=== PATIENT | female | born 1970 | race Caucasian/White ===

== ENCOUNTER 2022-06-26 12:24 | Outpatient (REF) | payer MEDICAID, SELFPAY ==
--- NOTE | ~2022-06-26 | XR_ITS ---
EXAMINATION: XR SHOULDER, RIGHT CLINICAL INFORMATION: Right shoulder pain COMPARISON: None TECHNIQUE: AP external rotation, Grashey, scapular Y, and axillary views of the right shoulder. FINDINGS: The bones and soft tissues are normal. No fracture. Glenohumeral and acromioclavicular alignment is anatomic with normal joint space. No abnormal soft tissue calcifications. XR/XR shoulder RT min 2V IMPRESSION: Unremarkable right shoulder.
== END 2022-06-26 12:25 | disposition home or self-care (01) ==
LOC: HO.XRAY 12:24
PROVIDERS: PCP Registered Nurse; Visit Provider Registered Nurse
DX: M25.511 Pain in right shoulder (principal)
CPT/HCPCS: 73030

== ENCOUNTER 2022-07-02 12:42 | Emergency (ER) | payer MEDICAID, SELFPAY ==
[2022-07-02 13:05] VITALS: BP 141/95; PULSE 79; RESP 16; TEMP 37; O2SAT 98; BMI 27.4
[2022-07-02 13:37] LABS: MANUAL DIFF FLAG NO
[2022-07-02 13:38] LABS: Basophils Percent Auto 0.4 % (0-2); Eosinophils Absolute Auto 0.2 X10*3/uL (0.0-0.4); Eosinophils Percent Auto 2.1 % (0-4); Hematocrit 37.5 % (37.0-47.0); Hemoglobin 12.3 g/dl (12.0-16.0); Imm Gran Abs Auto 0.02 X10*3/uL (0.00-0.03); Imm Gran Pct Auto 0.2 % (0.0-0.4); Lymphocytes Absolute Auto 2.7 X10*3/uL (1.2-4.9); Lymphocytes Percent Auto 32.4 % (20-40); Mean Corpuscular HGB Conc 32.8 g/dl (31.0-35.0); Mean Corpuscular Hemoglobin 28.7 pg (27.0-33.0); Mean Corpuscular Volume 87.6 fL (80.0-98.0); Mean Platelet Volume 11.4 fL (9.4-12.3); Monocytes Absolute Auto 0.5 X10*3/uL (0.1-1.2); Monocytes Percent Auto 6.1 % (2-11); Neutrophils Absolute Auto 4.8 x10*3/uL (2.0-8.3); Neutrophils Percent Auto 58.8 % (45-73); Platelet Count 270 X10*3/uL (160-400); Red Blood Count 4.28 X10*6/uL (4.20-5.50); Red Cell Distribution Width 13.3 % (11.0-16.0); White Blood Count 8.2 X10*3/uL (4.8-10.8)
[2022-07-02 13:51] LABS: Anion Gap 17 (12-20); Blood Urea Nitrogen 11 mg/dL (9-16); Calcium 9.9 mg/dL (8.4-10.2); Carbon Dioxide 25 mmol/L (22-29); Chloride 102 mmol/L (96-108); Creatinine Clr Calc Pharmacy 94.1; Estimated Glomerular Filt Rate > 60; Glucose Random 97 mg/dL (60-115); Potassium 4.5 mmol/L (3.3-5.1); Sodium 139 mmol/L (135-145)
--- NOTE | 2022-07-02 21:51 | PC.NURSE ---
Pt. reports that she has had intermittent very heavy vaginal bleeding for the last few months, with large blood clots. Was seen in [facility]'s ED appx. three months ago, but the heavy bleeding has returned.
[2022-07-02 21:53] VITALS: BP 140/82; PULSE 90; RESP 20; TEMP 36.8; O2SAT 99
--- NOTE | 2022-07-02 21:59 | PC.NURSE ---
Pt. on pvc monitor at this time. Awaiting MD currently.
--- NOTE | 2022-07-02 22:14 | ED_ITS ---
HPI - Female Genitourinary General Chief complaint: Abdominal Pain Stated complaint: vaginal bleeding Time Seen by Provider: 07/02/22 21:45 History of Present Illness HPI Narrative: Patient is a 51-year-old female presented today with having vaginal bleeding. Patient had a history of vaginal bleeding in the past. Was seen in [facility] few months ago. It subsequently subsided. Patient did make an appointment to see OBGYN. She has an appointment to see a doctor tomorrow. Patient complaining of increasing bleeding tonight. Has been having bleeding maybe 3-4 pads per day since Saturday. Associated with this a small amount of lower abdominal cramping. No nausea no vomiting. No change in bowel movements. No bloody stool. Patient had tubal ligation does not think she is . She has been seen by a nurse practitioner in the past for the same. Patient denies any bleeding disorder. Is not on any blood thinners. No fever no chills no coughing or congestion or upper respiratory symptoms. Related Data Allergies Allergy/AdvReac Type Severity Reaction Status Date / Time penicillin V Allergy Unknown Unverified 06/22/19 00:00 Penicillins Allergy Unknown RASH Unverified 06/09/20 16:02 ITCHY/SWELLING Review of Systems Review of Systems: Positive lower abdominal pain cramping Positive vaginal bleeding approximately 3-4 pads per day. All system reviewed otherwise negative COUNT INCLUDES THE [facility] Past Medical History Attestation statement: The following information was validated with the patient. Social History Social History Household Members: Significant Other Alcohol intake: current Alcohol intake frequency: holidays/special occasions only Patient Tobacco Use Status: Never used Tobacco Use of substances other than those prescribed or required for medical reasons: No Advance Directives: No Advance Directives Information Provided: Yes Physical Exam Vital Signs: Vital Signs: Last Vital Signs Temp 98.3 F 07/02/22 21:53 Pulse 96 07/02/22 22:33 Resp 20 07/02/22 21:53 BP 144/97 H 07/02/22 22:33 Pulse Ox 99 07/02/22 21:53 O2 Del Method 07/02/22 21:53 BMI result Body Mass Index 27.4 Appearance: Alert. Oriented X3. No acute distress. Eyes: Pupils equal, round and reactive to light. ENT: Pharynx normal. Neck: Normal inspection. Neck supple. No lymph nodes noted. No crepitus CVS: Normal heart rate and rhythm. Pulses normal. Normal S1 and S2 Respiratory: No respiratory distress. Breath sounds normal. No Wheezing. No rales Abdomen: Soft and nontender. No rigidity. No distention. good BS x4 Pelvic exam patient refused pelvic exam at this time. Skin: Skin warm and dry. Normal skin color. Normal skin turgor. Extremities: No lower extremity edema. Neurovascular intact to all extremities. No Lacerations. No Rash Neuro: Oriented X 3. No motor deficit. No sensory deficit. Moving all ex termities. No slurred speech MDM - Female Genitourinary MDM Narrative Medical decision making narrative: Patient hemoglobin is actually stable. Has an appointment to see OBGYN tomorrow. Did not want an manager acquisition exam. Patient will get an orthostatic check. Will check status. Patient will be discharged home. Extent plane to patient there is no acute medication that can be given until patient is being seen by OBGYN given that her hemoglobin is stable. She is well appearing. Explained to patient risk of cancer exists. Will need biopsy. Patient states understanding. Lab Data Attestation: I reviewed the patient's lab results. Result diagrams: 07/02/22 13:32 07/02/22 13:32 Labs: Lab Results 07/02/22 07/02/22 Range/Units 13:32 13:32 WBC 8.2 (4.8-10.8) X10*3/uL RBC 4.28 (4.20-5.50) X10*6/uL Hgb 12.3 (12.0-16.0) g/dl Hct 37.5 (37.0-47.0) % MCV 87.6 (80.0-98.0) fL MCH 28.7 (27.0-33.0) pg MCHC 32.8 (31.0-35.0) g/dl RDW 13.3 (11.0-16.0) % Plt Count 270 (160-400) X10*3/uL MPV 11.4 (9.4-12.3) fL Immature Gran % (Auto) 0.2 (0.0-0.4) % Neut % (Auto) 58.8 (45-73) % Lymph % (Auto) 32.4 (20-40) % [place] % (Auto) 6.1 (2-11) % Eos % (Auto) 2.1 (0-4) % Baso % (Auto) 0.4 (0-2) % Lymph # (Auto) 2.7 (1.2-4.9) X10*3/uL [place] # (Auto) 0.5 (0.1-1.2) X10*3/uL Eos # (Auto) 0.2 (0.0-0.4) X10*3/uL Baso # (Auto) 0.0 (0.0-0.2) X10*3/uL Abs Immat Gran (auto) 0.02 (0.00-0.03) X10*3/uL Absolute Neuts (auto) 4.8 (2.0-8.3) x10*3/uL Absolute Nucleated RBC 0.000 (0.0-0.012) X10*3/uL Nucleated RBC % (auto) 0.0 (0.0-0.2) /100WBC Sodium 139 (135-145) mmol/L Potassium 4.5 (3.3-5.1) mmol/L Chloride 102 (96-108) mmol/L Carbon Dioxide 25 (22-29) mmol/L Anion Gap 17 (12-20) BUN 11 (9-16) mg/dL Creatinine 0.70 (0.5-1.4) mg/dL Estim Creat Clear Calc 94.1 Estimated GFR > 60 Random Glucose 97 (60-115) mg/dL Calcium 9.9 (8.4-10.2) mg/dL Beta HCG, Quant < 2 mIU/mL Discharge Plan Discharge Clinical Impression: Abnormal vaginal bleeding Patient Disposition: Home, Self-Care Instructions: Dysfunctional Uterine Bleeding (ED) Additional Instructions: Small risk of cancer exists. Please closely follow-up with OBGYN on an outpatient basis. Uncontrolled bleeding return. Referrals: Aidan Jules MD [Physician] - 07/03/22
[2022-07-02 22:32] VITALS: BP 130/78; BP 142/93; PULSE 81
[2022-07-02 22:33] VITALS: BP 144/97; PULSE 96
[2022-07-02 22:34] LABS: HCG Quantitative < 2 mIU/mL
--- NOTE | 2022-07-02 22:36 | PC.NURSE ---
Orthostatic VS completed. One-time Tylenol 975mg administered.
[2022-07-02] MEDS: Acetaminophen 325 MG TABLET 975 MG PO (22:40)
[2022-07-02 22:53] LABS: Appearance Urine Turbid; Color Urine RED; Glucose Urine UA Negative (Negative); Leukocyte Esterase Urine Negative (Negative); Nitrite Urine Negative (Negative); PH 5.5 (5.0-9.0); Specific Gravity - Urine >= 1.030 (1.005-1.025); UMIC TRIGGER UACC YES; Urine Blood Large (3+) (Negative); Urine Ketones Negative (Negative); Urine Protein 100 (2+) mg/dL (Neg-Trace)
[2022-07-02 22:56] LABS: RBC Urine >20 /HPF (0-2); WBC Urine 0-5 /HPF (0-5)
[2022-07-02 22:57] LABS: Bacteria Urine 2+ (None Seen); Hyaline Casts Urine 0-2 /LPF (0-2); Squamous Epithelial Cell Urine 0-2 /HPF (0-2)
== END 2022-07-02 23:29 | disposition home or self-care (01) ==
PROVIDERS: Emergency Medicine; Emergency Provider Emergency Medicine Emergency Medical Services; PCP Registered Nurse
DX: N93.9 Abnormal uterine and vaginal bleeding, unspecified (principal); Z98.51 Tubal ligation status
CPT/HCPCS: 36415; 80048; 81001; 84702; 85025; 99283; 99284

== ENCOUNTER → 2022-07-03 10:49 | Outpatient (BNVA) | payer MEDICAID, SELFPAY | PROVIDERS: PCP Nurse Practitioner Family; Visit Provider Nurse Practitioner Family | DX: Z01.818 Encounter for other preprocedural examination (principal); N32.89 Other specified disorders of bladder | CPT/HCPCS: 99202 ==

== ENCOUNTER 2022-07-12 13:49 | Outpatient (REF) | payer MEDICAID, SELFPAY ==
[2022-07-12 20:09] LABS: CT PCR NOT DETECTED (Not Detect.); NG PCR NOT DETECTED (Not Detect.)
[2022-07-13 11:11] LABS: BV Int Neg Control Negative (Negative); BV Int Pos Control Positive (Positive)
[2022-07-17 20:41] LABS: HPV mRNA E6/E7 rflx Not Detected (Not Detected)
== END 2022-07-12 13:50 | disposition home or self-care (01) ==
LOC: HO.LNP 13:49
PROVIDERS: Visit Provider Advanced Practice Midwife
DX: Z01.419 Encounter for gynecological examination (general) (routine) without abnormal findings (principal); Z11.51 Encounter for screening for human papillomavirus (HPV); N95.0 Postmenopausal bleeding
CPT/HCPCS: 87480; 87491; 87510; 87591; 87624; 87660; 88142; 99202

== ENCOUNTER 2022-08-20 12:20 | Emergency (ER) | payer MEDICAID, SELFPAY ==
--- NOTE | ~2022-08-20 | XR_ITS ---
EXAMINATION: XR CHEST CLINICAL INFORMATION: Chest pain COMPARISON: Previous chest x-ray June 2019 TECHNIQUE: 2 views of the chest were obtained. FINDINGS: The cardiac and mediastinal contours are normal. The lungs are clear. No pleural effusion or pneumothorax. Normal bony structures. XR/XR chest 2V IMPRESSION: No evidence for acute disease in the chest.
[2022-08-20 12:26] VITALS: BP 162/103; PULSE 85; RESP 18; TEMP 36.3; O2SAT 99; BMI 32.1
--- NOTE | 2022-08-20 12:26 | ECG_ITS ---
Test Reason : CP/NUMBNESS Blood Pressure : / mmHG Vent. Rate : 092 BPM Atrial Rate : 092 BPM P-R Int : 134 ms QRS Dur : 076 ms QT Int : 356 ms P-R-T Axes : 063 057 033 degrees QTc Int : 440 ms Normal sinus rhythm Low voltage QRS RSR' or QR pattern in V1 suggests right ventricular conduction delay Borderline ECG When compared with ECG of 24-MAY-2018 00:51, No significant change was found Referred By: Krystal Dang Electronically Signed By:SHAN MARIE MD
--- NOTE | 2022-08-20 12:28 | ED_ITS ---
HPI - Chest Pain General Chief Complaint: Chest Pain Stated Complaint: Chest pain Related Data Home Medications Medication Instructions Recorded Confirmed amlodipine 5 mg tablet 5 mg PO DAILY 07/03/22 blood pressure test kit-large #1 ea 07/03/22 ferrous sulfate 325 mg (65 mg 325 mg PO TID 07/03/22 iron) tablet (FeroSul) fluticasone propionate 110 2 puff inhalation BID 07/03/22 mcg/actuation HFA aerosol inhaler (Flovent HFA) fluticasone propionate 50 1 - 2 spray intranasal DAILY PRN 07/03/22 mcg/actuation nasal spray,suspension ibuprofen 200 mg tablet 200 - 400 mg PO Q6H PRN headache 07/03/22 lurasidone 80 mg tablet (Latuda) 80 mg PO DAILY 07/03/22 quetiapine 400 mg tablet 400 mg PO BEDTIME 07/03/22 quetiapine 50 mg tablet 50 mg PO BID 07/03/22 vortioxetine 20 mg tablet 20 mg PO DAILY 07/03/22 (Trintellix) Previous Rx's Medication Instructions Recorded bisacodyl 5 mg tablet,delayed 10 mg PO ONCE 1 day #2 tabs 07/03/22 release (Dulcolax (bisacodyl)) polyethylene glycol 3350 17 238 g PO ONCE #238 grams 07/03/22 gram/dose oral powder (Miralax) Allergies Allergy/AdvReac Type Severity Reaction Status Date / Time penicillin V Allergy Unknown Unknown Verified 07/12/22 13:25 Penicillins Allergy Unknown RASH Verified 07/12/22 13:25 ITCHY/SWELLING PMFSH Past Medical History Medical History (Updated 08/23/22 @ 17:54 by REKHA Key) Allergic rhinitis Chronic dyspnea Depression H. pylori infection HTN (hypertension) Iron deficiency anemia Migraine Pain syndrome, chronic Surgical History Hx of tubal ligation Social History Social History Household Members: Significant Other Alcohol intake: current Alcohol intake frequency: holidays/special occasions only Patient Tobacco Use Status: Never used Tobacco Advance Directives: No Advance Directives Information Provided: Yes Physical Exam Vital Signs: Vital Signs: Last Vital Signs Temp 97.4 F 08/20/22 12:26 Pulse 85 11/28/22 12:26 Resp 18 08/20/22 12:26 BP 162/103 H 08/20/22 12:26 Pulse Ox 99 08/20/22 12:26 O2 Del Method 08/20/22 12:26 BMI result Body Mass Index 32.1 Course Course Course Narrative: 51 yo female with history of asthma who presents to the ER wtih 07/02 right sided upper back pain that started last night along with right arm numbness and pain. She woke up today with the pain radiating to her central chest, constant and 10/. Supposed to have MRI for evaluation of back pain with normal XR's. Soft tissue tenderness over the medial scapula. Will get EKG, labs, CXR. Plan per main provider in the ED. MDM - Chest Pain Lab Data Result diagrams: 08/20/22 13:10 08/20/22 13:10 Labs: Lab Results 08/20/22 08/20/22 08/20/22 Range/Units 13:10 13:10 13:10 WBC 8.1 (4.8-10.8) X10*3/uL RBC 4.09 L (4.20-5.50) X10*6/uL Hgb 11.7 L (12.0-16.0) g/dl Hct 36.4 L (37.0-47.0) % MCV 89.0 (80.0-98.0) fL MCH 28.6 (27.0-33.0) pg MCHC 32.1 (31.0-35.0) g/dl RDW 13.4 (11.0-16.0) % Plt Count 311 (160-400) X10*3/uL MPV 11.2 (9.4-12.3) fL Immature Gran % (Auto) 0.2 (0.0-0.4) % Neut % (Auto) 60.3 (45-73) % Lymph % (Auto) 30.3 (20-40) % [place] % (Auto) 6.6 (2-11) % Eos % (Auto) 2.1 (0-4) % Baso % (Auto) 0.5 (0-2) % Lymph # (Auto) 2.5 (1.2-4.9) X10*3/uL [place] # (Auto) 0.5 (0.1-1.2) X10*3/uL Eos # (Auto) 0.2 (0.0-0.4) X10*3/uL Baso # (Auto) 0.0 (0.0-0.2) X10*3/uL Abs Immat Gran (auto) 0.02 (0.00-0.03) X10*3/uL Absolute Neuts (auto) 4.9 (2.0-8.3) x10*3/uL Absolute Nucleated RBC 0.000 (0.0-0.012) X10*3/uL Nucleated RBC % (auto) 0.0 (0.0-0.2) /100WBC Sodium 138 (135-145) mmol/L Potassium 4.5 (3.3-5.1) mmol/L Chloride 104 (96-108) mmol/L Carbon Dioxide 25 (22-29) mmol/L Anion Gap 14 (12-20) BUN 15 (9-16) mg/dL Creatinine 0.69 (0.5-1.4) mg/dL Estim Creat Clear Calc 88.6 Estimated GFR > 60 Random Glucose 93 (60-115) mg/dL Calcium 9.8 (8.4-10.2) mg/dL Magnesium 1.9 (1.6-2.6) mg/dL Total Bilirubin 0.6 (0.0-1.0) mg/dL Direct Bilirubin 0.2 (0.0-0.5) mg/dL AST 29 (5-31) U/L ALT 30 (0-31) U/L Alkaline Phosphatase 54 (39-117) U/L Troponin I High Sens < 3.5 (<3.5-17.0) ng/L Total Protein 7.8 (6.5-8.0) g/dL Albumin 4.5 (3.5-5.0) g/dL Discharge Plan Discharge Clinical Impression: Back pain Patient Disposition: Elopement Prescriptions: No Action quetiapine 400 mg tablet 400 mg PO BEDTIME quetiapine 50 mg tablet 50 mg PO BID amlodipine 5 mg tablet 5 mg PO DAILY Latuda 80 mg tablet 80 mg PO DAILY Trintellix 20 mg tablet 20 mg PO DAILY ibuprofen 200 mg tablet 200 - 400 mg PO Q6H PRN (Reason: headache) ferrous sulfate [FeroSul] 325 mg (65 mg iron) tablet 325 mg PO TID fluticasone propionate 50 mcg/actuation spray,suspension 1 - 2 spray intranasal DAILY PRN fluticasone propionate [Flovent HFA] 110 mcg/actuation HFA aerosol inhaler 2 puff inhalation BID (DME) blood pressure test kit-large Kit See Rx Instructions .ROUTE DAILY Qty: 1 Rx Instructions: As directed bisacodyl [Dulcolax (bisacodyl)] 5 mg tablet,delayed release (DR/EC) 10 mg PO ONCE 1 Days Qty: 2 0RF Rx Instructions: take 2 tabs at noon the day before your colonoscopy polyethylene glycol 3350 [Miralax] 17 gram/dose powder 238 g PO ONCE Qty: 238 0RF Rx Instructions: As directed by gastroenterology department at [facility] Interventions: ED Discharge Assessment Last Done: 08/20/22 22:21 Discharge Date/Time: 08/20/22 22:21
[2022-08-20 13:15] LABS: MANUAL DIFF FLAG NO
[2022-08-20 13:16] LABS: Basophils Percent Auto 0.5 % (0-2); Eosinophils Absolute Auto 0.2 X10*3/uL (0.0-0.4); Eosinophils Percent Auto 2.1 % (0-4); Hematocrit 36.4 % (37.0-47.0); Hemoglobin 11.7 g/dl (12.0-16.0); Imm Gran Abs Auto 0.02 X10*3/uL (0.00-0.03); Imm Gran Pct Auto 0.2 % (0.0-0.4); Lymphocytes Absolute Auto 2.5 X10*3/uL (1.2-4.9); Lymphocytes Percent Auto 30.3 % (20-40); Mean Corpuscular HGB Conc 32.1 g/dl (31.0-35.0); Mean Corpuscular Hemoglobin 28.6 pg (27.0-33.0); Mean Platelet Volume 11.2 fL (9.4-12.3); Monocytes Absolute Auto 0.5 X10*3/uL (0.1-1.2); Monocytes Percent Auto 6.6 % (2-11); Neutrophils Absolute Auto 4.9 x10*3/uL (2.0-8.3); Neutrophils Percent Auto 60.3 % (45-73); Platelet Count 311 X10*3/uL (160-400); Red Blood Count 4.09 X10*6/uL (4.20-5.50); Red Cell Distribution Width 13.4 % (11.0-16.0); White Blood Count 8.1 X10*3/uL (4.8-10.8)
[2022-08-20 13:35] LABS: Alanine Aminotransferase 30 U/L (0-31); Albumin Level 4.5 g/dL (3.5-5.0); Alkaline Phosphatase 54 U/L (39-117); Anion Gap 14 (12-20); Aspartate Amino Transferase 29 U/L (5-31); Bilirubin Direct 0.2 mg/dL (0.0-0.5); Bilirubin Total 0.6 mg/dL (0.0-1.0); Blood Urea Nitrogen 15 mg/dL (9-16); Calcium 9.8 mg/dL (8.4-10.2); Carbon Dioxide 25 mmol/L (22-29); Chloride 104 mmol/L (96-108); Creatinine Clr Calc Pharmacy 88.6; Estimated Glomerular Filt Rate > 60; Glucose Random 93 mg/dL (60-115); Magnesium 1.9 mg/dL (1.6-2.6); Potassium 4.5 mmol/L (3.3-5.1); Sodium 138 mmol/L (135-145); Total Protein 7.8 g/dL (6.5-8.0)
[2022-08-20 13:41] LABS: Troponin-I High Sensitivity < 3.5 ng/L (<3.5-17.0)
== END 2022-08-20 22:21 | disposition left against medical advice (07) ==
PROVIDERS: Physician Assistant; Emergency Provider Emergency Medicine; PCP Emergency Medicine
DX: M54.9 Dorsalgia, unspecified (principal); I10 Essential (primary) hypertension; G89.4 Chronic pain syndrome; Z79.899 Other long term (current) drug therapy
CPT/HCPCS: 36415; 71046; 80048; 80076; 83735; 84484; 85025; 93005; 99282; 99283

== ENCOUNTER 2022-08-24 16:33 | Outpatient (REF) | payer MEDICAID, SELFPAY ==
--- NOTE | ~2022-08-24 | MR_ITS ---
EXAMINATION: MR SHOULDER WITHOUT CONTRAST, RIGHT CLINICAL INFORMATION: Pain, status post fall COMPARISON: None TECHNIQUE: MRI of the shoulder without contrast was performed on a high-field scanner. FINDINGS: Significant motion artifact degrading images, limiting evaluation. ROTATOR CUFF: Mild to moderate supraspinatus tendinosis. No gross measurable tear or tendon retraction is seen. Infraspinatus, teres minor, subscapularis are intact. No muscle atrophy or fatty infiltration. BICEPS: Question longitudinally propagating linear split tear of the biceps tendon as it courses within the bicipital groove. CORACOACROMIAL ARCH: The undersurface of the acromion is flat with no subacromial spur. No significant AC joint arthritis. LABRUM/CAPSULE: Evaluation limited by significant motion artifact. No definite labral tear is identified. GLENOHUMERAL JOINT/MARROW: No fracture. No suspicious marrow signal changes. MR/MR shoulder RT wo con IMPRESSION: 1. Significant motion artifact degrading images, limiting evaluation. Repeat MRI for reassessment as clinically warranted. 2. Mild to moderate supraspinatus tendinosis. No gross measurable tear or tendon retraction is seen. 3. Question longitudinally propagating linear split tear of the biceps tendon as it courses within the bicipital groove.
== END 2022-08-24 16:34 | disposition home or self-care (01) ==
LOC: HO.MRI 16:33
PROVIDERS: Visit Provider Emergency Medicine
DX: S49.91XA Unspecified injury of right shoulder and upper arm, initial encounter (principal)
CPT/HCPCS: 73221

== ENCOUNTER 2022-08-29 09:51 | Outpatient (REF) | payer MEDICAID, SELFPAY ==
[2022-08-29 12:28] LABS: TSH reflex Free T4 1.24 uIU/mL (0.32-4.0)
== END 2022-08-29 09:52 | disposition home or self-care (01) ==
LOC: HO.LAB 09:51
PROVIDERS: PCP Emergency Medicine; Visit Provider Obstetrics & Gynecology
DX: N95.0 Postmenopausal bleeding (principal); N76.0 Acute vaginitis; B96.89 Other specified bacterial agents as the cause of diseases classified elsewhere
CPT/HCPCS: 36415; 84443; 99212

== ENCOUNTER 2022-08-30 07:12 | Outpatient (REF) | payer MEDICAID, SELFPAY ==
--- NOTE | ~2022-08-30 | MM_ITS ---
EXAMINATION: MM SCREENING DIGITAL BREAST TOMOSYNTHESIS, BILATERAL CLINICAL INFORMATION: Screening. Asymptomatic. The lifetime risk of breast cancer based on the Tyrer-Cuzick Model is 6.3%. COMPARISON: Mammography: March 03, 2009 and studies dating back to January 04, 2015 TECHNIQUE: Digital breast tomosynthesis is performed in both the craniocaudal and mediolateral oblique views along with computer-aided detection (CAD). Synthesized 2D images are generated from the tomosynthesis. FINDINGS: There are scattered areas of fibroglandular density (ACR BI-RADS breast composition Category b). There are no significant masses, abnormal calcifications, or other abnormalities. MM/MM tomosynthesis screening BI IMPRESSION: No significant changes from prior exam. ASSESSMENT: BI-RADS 1: Negative RECOMMENDATION: Routine annual mammography screening. This patient's information was entered into a reminder system with a target due date for their next mammogram.
== END 2022-08-30 07:13 | disposition home or self-care (01) ==
LOC: HO.MAMMO 07:12
PROVIDERS: Visit Provider Obstetrics & Gynecology
DX: Z12.31 Encounter for screening mammogram for malignant neoplasm of breast (principal)
CPT/HCPCS: 77063; 77067

== ENCOUNTER 2022-10-05 06:21 | Day surgery (SDC) | payer MEDICAID, SELFPAY ==
[2022-10-02 14:59] VITALS: BMI 30.2
--- NOTE | 2022-10-04 09:34 | HO.ANESPROP2 ---
Documented by User: Elizabeth Vizcarra NP 10/04/22 09:35 HPI - Anesthesia Eval Consult details Narrative: 51yo F for D&C Hysteroscopy, possible polypectomy/myomectomy PMFSH Active Problems Active Problems: All Active Problems (Updated 08/29/22 @ 10:10 by Aidan Jules MD) Bacterial vaginosis (Acute) Postmenopausal bleeding (Acute) Past Medical History Medical History Allergic rhinitis Asthma Chronic dyspnea Depression H. pylori infection HTN (hypertension) Iron deficiency anemia Migraine Pain syndrome, chronic Surgical History Surgical History Hx of tubal ligation Social History Social History Household Members: Significant Other Alcohol intake: current Alcohol intake frequency: holidays/special occasions only Patient Tobacco Use Status: Never used Tobacco Are you DNR?: No Advance Directives: No Advance Directives Information Provided: Yes Advance Directives on File: No Meds Allergies Allergy/AdvReac Type Severity Reaction Status Date / Time Penicillins Allergy Severe RASH Verified 10/05/22 06:36 ITCHY/SWELLING facial swelling Home Medications Medication Instructions Recorded Confirmed Last Taken Type amlodipine 5 mg tablet 5 mg PO DAILY 07/03/22 10/02/22 Unknown History blood pressure test kit-large #1 ea 07/03/22 Unknown History ferrous sulfate 325 mg (65 mg 325 mg PO TID 07/03/22 09/21/22 History iron) tablet (FeroSul) fluticasone propionate 110 2 puff inhalation BID 07/03/22 10/02/22 Unknown History mcg/actuation HFA aerosol inhaler (Flovent HFA) fluticasone propionate 50 1 - 2 spray intranasal DAILY PRN 07/03/22 Unknown History mcg/actuation nasal spray,suspension ibuprofen 200 mg tablet 200 - 400 mg PO Q6H PRN headache 07/03/22 09/23/22 History lurasidone 80 mg tablet (Latuda) 80 mg PO DAILY 07/03/22 Unknown History quetiapine 400 mg tablet 400 mg PO BEDTIME 07/03/22 Unknown History quetiapine 50 mg tablet 50 mg PO BID 07/03/22 Unknown History vortioxetine 20 mg tablet 20 mg PO DAILY 07/03/22 Unknown History (Trintellix) Exam Exam Date and Time: October 04, 2022 0934 Height,Weight and Vital Signs: Height 5 ft 1 in Weight 72.575 kg Pertinent Lab Results Pertinent Lab Results: Laboratory Tests 08/20/22 08/20/22 13:10 13:10 WBC 8.1 Hgb 11.7 L Hct 36.4 L Plt Count 311 Sodium 138 Potassium 4.5 Chloride 104 Carbon Dioxide 25 BUN 15 Creatinine 0.69 Narrative Narrative: EKG 07/2022 Vent. Rate : 092 BPM ? ? Atrial Rate : 092 BPM ?? P-R Int : 134 ms? QRS Dur : 076 ms ? ? QT Int : 356 ms ? ? ? P-R-T Axes : 063 057 033 degrees ?? QTc Int : 440 ms ? Normal sinus rhythm Low voltage QRS RSR' or QR pattern in V1 suggests right ventricular conduction delay Borderline ECG When compared with ECG of 24-MAY-2018 00:51, No significant change was found Assessment and Plan Assessment Anesthesia Assessment: Chart Reviewed Documented by User: Alicia Baron MD 10/05/22 07:44 PMFSH Past Medical History Medical History Allergic rhinitis Asthma Chronic dyspnea Depression H. pylori infection HTN (hypertension) Iron deficiency anemia Migraine Pain syndrome, chronic Surgical History Surgical History Hx of tubal ligation History of Problems with Anesthesia: No Social History Social History Household Members: Significant Other Alcohol intake: current Alcohol intake frequency: holidays/special occasions only Patient Tobacco Use Status: Never used Tobacco Are you DNR?: No Advance Directives: No Advance Directives Information Provided: Yes Advance Directives on File: No Meds Allergies Allergy/AdvReac Type Severity Reaction Status Date / Time Penicillins Allergy Severe RASH Verified 10/05/22 06:36 ITCHY/SWELLING facial swelling Home Medications Medication Instructions Recorded Confirmed Last Taken Type amlodipine 5 mg tablet 5 mg PO DAILY 07/03/22 10/02/22 Unknown History blood pressure test kit-large #1 ea 07/03/22 Unknown History ferrous sulfate 325 mg (65 mg 325 mg PO TID 07/03/22 09/21/22 History iron) tablet (FeroSul) fluticasone propionate 110 2 puff inhalation BID 07/03/22 10/02/22 Unknown History mcg/actuation HFA aerosol inhaler (Flovent HFA) fluticasone propionate 50 1 - 2 spray intranasal DAILY PRN 07/03/22 Unknown History mcg/actuation nasal spray,suspension ibuprofen 200 mg tablet 200 - 400 mg PO Q6H PRN headache 07/03/22 09/23/22 History lurasidone 80 mg tablet (Latuda) 80 mg PO DAILY 07/03/22 Unknown History quetiapine 400 mg tablet 400 mg PO BEDTIME 07/03/22 Unknown History quetiapine 50 mg tablet 50 mg PO BID 07/03/22 Unknown History vortioxetine 20 mg tablet 20 mg PO DAILY 07/03/22 Unknown History (Trintellix) Exam Airway Mallampati Class: III TM Dist: >3cm Neck ROM: Full Loose/Missing/Broken Teeth: No Heart: RRR Lungs: CTA Assessment and Plan Assessment Anesthesia Assessment: Anesthesia Plan Discussed Final Anesthetic Review History of Problems with Anesthesia: No NPO: Yes ASA Class: II Final Preanesthetic Review: Meds/Allgs Chart Reviewed, Consent Obtained/Reviewed and Anes Risks/Benef Reviewed Patient Risk: Low Procedure Risk: Low Anesthetic Plan Anesthetic Plan: GA Disposition: Standard PACU
[2022-10-05] VITALS (8 sets, daily range): BP systolic 105–144; BP diastolic 56–98; PULSE 86–99; RESP 14–16; TEMP 36.4–37.2; O2SAT 95–100
[2022-10-05] MEDS: Lactated Ringers 1,000 ML 100 ML IVCONT (06:52)
--- NOTE | 2022-10-05 07:40 | MHC.SHP ---
Pre-Procedural Eval Section A Date of Service: 10/05/22 The patient is an INPATIENT: No Changes since office visit: No Cold of Flu in the past 2 weeks, No New Medical Problems, No Changes in Medication and No Patient answered all questions The History & Physical has been completed within 30 days and I have reviewed it.: Yes Section B Chief Complaint: Postmenopausal bleeding Allergies: Allergies Allergy/AdvReac Type Severity Reaction Status Date / Time Penicillins Allergy Severe RASH Verified 10/05/22 06:36 ITCHY/SWELLING facial swelling Plan Diagnosis/Plan: Unchanged I have reviewed the history and physical and performed a pertinent physical examination on my patient. No changes have occurred unless specified. Time Spent With Patient Time: Total time managing care of this patient today ____ minutes.
--- NOTE | 2022-10-05 08:46 | P.BOP_ITS ---
Brief Operative Note Date of Service: 10/05/22 Pre-op diagnosis: Postmenopausal bleeding, abnormal endometrium by ultrasound Post-op diagnosis: same (Posterior uterine wall endometrial polyp) Procedure: Hysteroscopy D&C, Polypectomy Surgeon: Aidan Jules MD Anesthesia: GLMA Was an Gas Meter Prover used for this Procedure?: No Estimated blood loss (mL): 0 Pathology: other (Endometrial Scrapping. Polyp) Condition: stable Disposition: PACU
--- NOTE | 2022-10-05 08:47 | P.OP_ITS ---
Operative Note Operative Note Date of Service: 10/05/22 Narrative: Preop Diagnosis: Postmenopausal bleeding and abnormal endometrium by US Operation: Diagnostic Hysteroscopy, Dilataion & Curettage and polypectomy Post Op Diagnosis: Posterior uterine wall Endometrial Polyp QBL: Minimal Anesthesia: GLMA Surgeon: Aidan Jules MD Inspector Purchased Parts: None Complication: None Pathology: Endometrial Scrapings, Endometrial polyp Procedure: The patient was put in the dorsal lithotomy position, scrubbed, and draped in the usual manner. A sterile speculum was inserted in the patient's vagina. The anterior lip of the cervix was grasped with a single tooth tenaculum. The cervix was dilated up to 5 mm, then the scope was inserted in the patient's uterus. Inspection revealed posterior uterine wall endometrial polyp. The Myosure Reach device was used; it was introduced through the operative channel and polypectomy done with no complications. The scope was then taken out from the uterine cavity, sharp curettings was carried on with minimal to moderate amount of tissues retrieved. At the end of the procedure, all instruments were taken out of the patient uterine and vaginal cavity. The single tooth tenaculum was removed and homeostasis was assured using pressure,. The patient tolerated the procedure well and was transferred to the PACU in a stable condition.
[2022-10-05] MEDS: fentaNYL citrate/PF 100 MCG/2 ML VIAL 25 MCG IVPUSH ×4 (08:51→09:06)
[2022-10-05] MEDS: oxyCODONE HCl Immed Release 5 MG TABLET PO (09:01)
== END 2022-10-05 10:00 | disposition home or self-care (01) ==
PROVIDERS: PCP Emergency Medicine; Visit Provider Obstetrics & Gynecology
PROC: 0UDB8ZZ Extraction of Endometrium, Via Natural or Artificial Opening Endoscopic (ICD-10-PCS; CPT 58558; principal; 2022-10-05 08:30)
DX: N95.0 Postmenopausal bleeding (principal); N84.0 Polyp of corpus uteri; N76.0 Acute vaginitis; B96.89 Other specified bacterial agents as the cause of diseases classified elsewhere; G43.909 Migraine, unspecified, not intractable, without status migrainosus; G89.4 Chronic pain syndrome; I10 Essential (primary) hypertension; J45.909 Unspecified asthma, uncomplicated; R06.09 Other forms of dyspnea; D50.9 Iron deficiency anemia, unspecified; Z79.51 Long term (current) use of inhaled steroids; Z79.899 Other long term (current) drug therapy; Z88.0 Allergy status to penicillin; Z98.51 Tubal ligation status
CPT/HCPCS: 58558; 88305; J1100; J2250; J2405; J2550; J3010

== ENCOUNTER 2022-10-18 08:15 | Outpatient (REF) | payer MEDICAID, SELFPAY ==
[2022-10-18 17:52] LABS: Urine Cytology See Pathology rpt
== END 2022-10-18 08:16 | disposition home or self-care (01) ==
LOC: HO.LAB 08:15
PROVIDERS: Nurse Practitioner Family; PCP Emergency Medicine; Visit Provider Obstetrics & Gynecology
DX: N20.0 Calculus of kidney (principal); R31.29 Other microscopic hematuria; R10.9 Unspecified abdominal pain; N95.0 Postmenopausal bleeding; Z79.899 Other long term (current) drug therapy
CPT/HCPCS: 88112; 99202; 99212

== ENCOUNTER 2022-12-03 11:08 | Emergency (ER) | payer MEDICAID, SELFPAY | END 2022-12-03 12:15 | disposition left against medical advice (07) | LOC: HO.ED 11:54 | PROVIDERS: Emergency Provider Emergency Medicine; PCP Registered Nurse | DX: N93.9 Abnormal uterine and vaginal bleeding, unspecified (principal) | CPT/HCPCS: 99212 ==

== ENCOUNTER 2022-12-03 11:47 | Outpatient (REF) | payer MEDICAID, SELFPAY ==
[2022-12-03 12:28] LABS: Hemoglobin 12.4 g/dl (12.0-16.0); Mean Corpuscular HGB Conc 32.6 g/dl (31.0-35.0); Mean Corpuscular Hemoglobin 28.8 pg (27.0-33.0); Mean Corpuscular Volume 88.4 fL (80.0-98.0); Mean Platelet Volume 11.7 fL (9.4-12.3); Platelet Count 324 X10*3/uL (160-400); Red Cell Distribution Width 13.4 % (11.0-16.0); White Blood Count 7.7 X10*3/uL (4.8-10.8)
[2022-12-04 09:25] LABS: CT PCR INVALID (Not Detect.); NG PCR INVALID (Not Detect.)
== END 2022-12-03 11:48 | disposition home or self-care (01) ==
LOC: HO.LAB 11:47
PROVIDERS: Visit Provider Obstetrics & Gynecology
DX: N95.0 Postmenopausal bleeding (principal); Z20.2 Contact with and (suspected) exposure to infections with a predominantly sexual mode of transmission
CPT/HCPCS: 0353U; 36415; 85027; 99212

== ENCOUNTER 2022-12-03 12:45 | Outpatient (REF) | payer MEDICAID, SELFPAY | END 2022-12-03 12:46 | disposition home or self-care (01) | LOC: HO.LNP 12:45 | PROVIDERS: Visit Provider Obstetrics & Gynecology | DX: Z13.89 Encounter for screening for other disorder (principal) ==

== ENCOUNTER 2022-12-19 10:52 | Outpatient (REF) | payer MEDICAID, SELFPAY ==
--- NOTE | ~2022-12-19 | US_ITS ---
EXAMINATION: US PELVIS CLINICAL INFORMATION: Postmenopausal bleeding. COMPARISON: Previous pelvic ultrasound April [address] of the abdomen and pelvis May 2018 TECHNIQUE: Ultrasound of the pelvis is performed using both transabdominal and transvaginal transducers along with Doppler. Transvaginal imaging is performed due to inadequate visualization transabdominally. FINDINGS: The uterus is anteverted and measures 8.5 x 5.3 x 6.1 cm in dimension. Uterine echotexture is heterogeneous. No definite focal uterine lesion is seen. The endometrium is difficult to visualize. The endometrium does not appear thickened measuring 0.5 cm. There is a small nabothian cyst in the cervix. The ovaries are normal-appearing. The right ovary measures 2.7 x 1.6 x 1.3 cm. The left ovary measures 2.2 x 1.3 x 2.1 cm. There is no fluid in the pelvis. US/US pelvic and transvaginal IMPRESSION: Heterogeneous appearing uterus. The endometrium is difficult to visualize. Normal-appearing ovaries.
== END 2022-12-19 10:53 | disposition home or self-care (01) ==
LOC: HO.US 10:52
PROVIDERS: PCP Registered Nurse; Visit Provider Obstetrics & Gynecology
DX: N95.0 Postmenopausal bleeding (principal)
CPT/HCPCS: 76830; 76856

== ENCOUNTER 2023-01-03 12:34 | Outpatient (REF) | payer MEDICAID, SELFPAY ==
--- NOTE | ~2023-01-03 | US_ITS ---
EXAMINATION: US RETROPERITONEAL COMPLETE (RENAL) CLINICAL INFORMATION: Unspecified abdominal pain. COMPARISON: Ultrasound abdomen limited 10/27/2018. CT abdomen and pelvis with contrast 05/24/2018. Ultrasound abdomen complete 03/25/2018. TECHNIQUE: Real-time imaging of the kidneys and bladder. FINDINGS: RIGHT KIDNEY: 10.7 x 5.4 x 5.6 cm (SAG x AP x TRV). The kidney is normal in size, contour, and echogenicity. Renal cortical thickness is normal. No renal calculi. Mild caliectasis is suspected. The upper pole, a 6 x 5.4 mm hyperechoic benign angiomyolipoma is redemonstrated, consistent with prior CT findings (3:275). LEFT KIDNEY: 11.4 x 5.1 x 4.8 cm (SAG x AP x TRV). The kidney is normal in size, contour, and echogenicity. Renal cortical thickness is normal. No calculi or focal parenchymal lesions. Mild caliectasis is suspected. BLADDER: Well distended and normal. Bilateral ureteral jets are demonstrated. Prevoid bladder volume is 207 mL. Postvoid bladder volume is 18 mL. US/US retroperitoneal comp IMPRESSION: 1. Mild bilateral renal caliectasis is suspected. 2. A 6 mm benign, fat-containing angiomyolipoma is redemonstrated at the upper pole of the right kidney.
== END 2023-01-03 12:35 | disposition home or self-care (01) ==
LOC: HO.US 12:34
PROVIDERS: Visit Provider Nurse Practitioner Family
DX: R10.9 Unspecified abdominal pain (principal)
CPT/HCPCS: 76770

== ENCOUNTER 2023-01-08 12:29 | Outpatient (REF) | payer MEDICAID, SELFPAY ==
[2023-01-09 09:39] LABS: CT PCR NOT DETECTED (Not Detect.); NG PCR NOT DETECTED (Not Detect.)
== END 2023-01-08 12:30 | disposition home or self-care (01) ==
LOC: HO.LNP 12:29
PROVIDERS: PCP Registered Nurse; Visit Provider Obstetrics & Gynecology
DX: N95.0 Postmenopausal bleeding (principal)
CPT/HCPCS: 0353U; 58100; 88305; 99212

== ENCOUNTER 2023-02-19 11:46 | Emergency (ER) | payer MEDICAID, SELFPAY ==
[2023-02-19] VITALS (8 sets, daily range): BP systolic 125–210; BP diastolic 71–190; PULSE 79–108; RESP 19–20; TEMP 36.6; O2SAT 98–99; BMI 32.1
--- NOTE | 2023-02-19 12:10 | ED_ITS ---
HPI - Dizziness General Chief Complaint: Dizziness Stated Complaint: Dizziness Time Seen by Provider: 02/19/23 16:59 Source: patient and apprentice painter hand Mode of arrival: ambulatory History of Present Illness HPI Narrative: 52-year-old female who reports being dizzy for months, diarrhea for 2 weeks, headache, occasional shortness of breath, mild urinary symptoms but otherwise eating and drinking well. Related Data Home Medications Medication Instructions Recorded Confirmed amlodipine 5 mg tablet 5 mg PO DAILY 07/03/22 10/18/22 blood pressure test kit-large #1 ea 07/03/22 10/18/22 ferrous sulfate 325 mg (65 mg 325 mg PO TID 07/03/22 10/18/22 iron) tablet (FeroSul) fluticasone propionate 110 2 puff inhalation BID 07/03/22 10/18/22 mcg/actuation HFA aerosol inhaler (Flovent HFA) fluticasone propionate 50 1 - 2 spray intranasal DAILY PRN 07/03/22 10/18/22 mcg/actuation nasal spray,suspension ibuprofen 200 mg tablet 200 - 400 mg PO Q6H PRN headache 07/03/22 10/18/22 lurasidone 80 mg tablet (Latuda) 80 mg PO DAILY 07/03/22 10/18/22 quetiapine 400 mg tablet 400 mg PO BEDTIME 07/03/22 10/18/22 quetiapine 50 mg tablet 50 mg PO BID 07/03/22 10/18/22 vortioxetine 20 mg tablet 20 mg PO DAILY 07/03/22 10/18/22 (Trintellix) Previous Rx's Medication Instructions Recorded bisacodyl 5 mg tablet,delayed 10 mg PO ONCE 1 day #2 tabs 07/03/22 release (Dulcolax (bisacodyl)) polyethylene glycol 3350 17 238 g PO ONCE #238 grams 07/03/22 gram/dose oral powder (Miralax) Allergies Allergy/AdvReac Type Severity Reaction Status Date / Time Penicillins Allergy Severe RASH Verified 02/19/23 12:10 ITCHY/SWELLING facial swelling Review of Systems Review of Systems: Pertinent positives and negatives as stated in HPI PMFSH Past Medical History Source: nursing notes reviewed Medical History Allergic rhinitis Asthma Chronic dyspnea Depression H. pylori infection HTN (hypertension) Iron deficiency anemia Migraine Pain syndrome, chronic Surgical History Hx of tubal ligation Social History Social History Household Members: Significant Other Alcohol intake: current Alcohol intake frequency: holidays/special occasions only Patient Tobacco Use Status: Never used Tobacco Advance Directives: No Advance Directives Information Provided: No Physical Exam 2 Vital Signs: Vital Signs: Last Vital Signs Temp 98 F 02/19/23 12:10 Pulse 89 02/19/23 17:47 Resp 20 02/19/23 17:19 BP 133/85 02/19/23 17:47 Pulse Ox 99 02/19/23 17:19 O2 Del Method Room Air 02/19/23 17:19 BMI result Body Mass Index 32.1 VITAL SIGNS: Reviewed. GENERAL: Well developed, well nourished, in no acute distress. HEAD: Normocephalic/atraumatic EYES: PERRLA, EOMI EARS: Ext canals without abnormality, TMs non-bulging and non-erythematous NOSE: Nares patent bilateral OROPHARYNX: no oral lesions noted, posterior pharynx clear NECK: Supple, no adenopathy LUNGS: Normal breath sounds. No adventitious sounds or accessory muscle use. SpO2<99> CARDIOVASCULAR: Regular rate and rhythm without noted murmurs, no JVD or lower extremity edema. ABDOMEN: Soft, non-tender, non-distended with bowel sounds. MUSCULOSKELETAL: No tenderness, deformities, or effusions noted on gross inspection. EXTREMITIES: No cyanosis, clubbing or edema. SKIN: Inspection of the skin reveals no rashes NEUROLOGIC: Alert and oriented x 4. Strength and sensation to light touch were grossly intact x 4, no facial asymmetry, no pronator drift, cranial nerves 2-12 are grossly intact, heel to cherry intact. Course Course Course Narrative: RME - 52 y/o female presents to the ER for evaluation of intermittent dizziness for the last 5-6 months. Also reports new onset green, watery diarrhea for the last 2 weeks. No abdominal pain. +chronic headache, 10/10 but improves with Advil. VSS in triage. Plan: EKG and lab workup. Medical Decision Making Medical Decision Making MDM Narrative: 52-year-old female with negative orthostatics, chronic history of the dizziness that she describes and non focal. No evidence to suggest cardiac ischemia. Urinalysis appears to be dirty with numerous squamous epithelium. I have reviewed all investigations, and then I was informed by nursing staff that patient eloped. Differential Diagnosis Please see the discussion above Lab Data Please see the discussion above 02/19/23 12:24 02/19/23 12:24 Labs: Lab Results 02/19/23 02/19/23 02/19/23 Range/Units 12:24 12:24 17:25 WBC 8.2 (4.8-10.8) X10*3/uL RBC 4.18 L (4.20-5.50) X10*6/uL Hgb 12.1 (12.0-16.0) g/dl Hct 37.1 (37.0-47.0) % MCV 88.8 (80.0-98.0) fL MCH 28.9 (27.0-33.0) pg MCHC 32.6 (31.0-35.0) g/dl RDW 13.4 (11.0-16.0) % Plt Count 287 (160-400) X10*3/uL MPV 11.5 (9.4-12.3) fL Immature Gran % (Auto) 0.2 (0.0-0.4) % Neut % (Auto) 53.8 (45-73) % Lymph % (Auto) 37.0 (20-40) % [place] % (Auto) 5.6 (2-11) % Eos % (Auto) 2.9 (0-4) % Baso % (Auto) 0.5 (0-2) % Lymph # (Auto) 3.0 (1.2-4.9) X10*3/uL [place] # (Auto) 0.5 (0.1-1.2) X10*3/uL Eos # (Auto) 0.2 (0.0-0.4) X10*3/uL Baso # (Auto) 0.0 (0.0-0.2) X10*3/uL Abs Immat Gran (auto) 0.02 (0.00-0.03) X10*3/uL Absolute Neuts (auto) 4.4 (2.0-8.3) x10*3/uL Absolute Nucleated RBC 0.000 (0.0-0.012) X10*3/uL Nucleated RBC % (auto) 0.0 (0.0-0.2) /100WBC Sodium 142 (135-145) mmol/L Potassium 4.2 (3.3-5.1) mmol/L Chloride 109 H (96-108) mmol/L Carbon Dioxide 25 (22-29) mmol/L Anion Gap 12 (12-20) BUN 21 H (9-16) mg/dL Creatinine 0.79 (0.5-1.4) mg/dL Estim Creat Clear Calc 76.4 Estimated GFR > 60 Random Glucose 104 (60-115) mg/dL Calcium 9.7 (8.4-10.2) mg/dL Magnesium 1.9 (1.6-2.6) mg/dL Total Bilirubin 0.9 (0.0-1.0) mg/dL Direct Bilirubin 0.2 (0.0-0.5) mg/dL AST 21 (5-31) U/L ALT 20 (0-31) U/L Alkaline Phosphatase 57 (39-117) U/L Troponin I High Sens (<3.5-17.0) ng/L Total Protein 7.8 (6.5-8.0) g/dL Albumin 4.4 (3.5-5.0) g/dL Urine Color Yellow Urine Appearance Cloudy Urine pH 6.0 (5.0-9.0) Ur Specific [employer] >= 1.030 H (1.005-1.025) Urine Protein Trace (Neg-Trace) mg/dL Urine Glucose (UA) Negative (Negative) mg/dL Urine Ketones 15 (Negative) mg/dL Urine Blood Trace H (Negative) Urine Nitrite Negative (Negative) Ur Leukocyte Esterase Trace H (Negative) Urine RBC 6-10 H (0-2) /HPF Urine WBC 6-10 H (0-5) /HPF Ur Squamous Epith Cells 11-20 (0-2) /HPF Urine Bacteria 1+ (None Seen) Hyaline Casts 0-2 (0-2) /LPF 02/19/ Range/Units 17:30 WBC (4.8-10.8) X10*3/uL RBC (4.20-5.50) X10*6/uL Hgb (12.0-16.0) g/dl Hct (37.0-47.0) % MCV (80.0-98.0) fL MCH (27.0-33.0) pg MCHC (31.0-35.0) g/dl RDW (11.0-16.0) % Plt Count (160-400) X10*3/uL MPV (9.4-12.3) fL Immature Gran % (Auto) (0.0-0.4) % Neut % (Auto) (45-73) % Lymph % (Auto) (20-40) % [place] % (Auto) (2-11) % Eos % (Auto) (0-4) % Baso % (Auto) (0-2) % Lymph # (Auto) (1.2-4.9) X10*3/uL [place] # (Auto) (0.1-1.2) X10*3/uL Eos # (Auto) (0.0-0.4) X10*3/uL Baso # (Auto) (0.0-0.2) X10*3/uL Abs Immat Gran (auto) (0.00-0.03) X10*3/uL Absolute Neuts (auto) (2.0-8.3) x10*3/uL Absolute Nucleated RBC (0.0-0.012) X10*3/uL Nucleated RBC % (auto) (0.0-0.2) /100WBC Sodium (135-145) mmol/L Potassium (3.3-5.1) mmol/L Chloride (96-108) mmol/L Carbon Dioxide (22-29) mmol/L Anion Gap (12-20) BUN (9-16) mg/dL Creatinine (0.5-1.4) mg/dL Estim Creat Clear Calc Estimated GFR Random Glucose (60-115) mg/dL Calcium (8.4-10.2) mg/dL Magnesium (1.6-2.6) mg/dL Total Bilirubin (0.0-1.0) mg/dL Direct Bilirubin (0.0-0.5) mg/dL AST (5-31) U/L ALT (0-31) U/L Alkaline Phosphatase (39-117) U/L Troponin I High Sens < 2.7 (<3.5-17.0) ng/L Total Protein (6.5-8.0) g/dL Albumin (3.5-5.0) g/dL Urine Color Urine Appearance Urine pH (5.0-9.0) Ur Specific [employer] (1.005-1.025) Urine Protein (Neg-Trace) mg/dL Urine Glucose (UA) (Negative) mg/dL Urine Ketones (Negative) mg/dL Urine Blood (Negative) Urine Nitrite (Negative) Ur Leukocyte Esterase (Negative) Urine RBC (0-2) /HPF Urine WBC (0-5) /HPF Ur Squamous Epith Cells (0-2) /HPF Urine Bacteria (None Seen) Hyaline Casts (0-2) /LPF Independent Interpretation I performed an independent interpretation of an: EKG Interpretation: Number sinus rhythm, HR-96, no STEMI, RI/QRS/QTC is within normal limits. External Record Review External record reviewed: Prior outpatient labs Discharge Plan Discharge Clinical Impression: Lightheadedness Patient Disposition: Elopement Prescriptions: No Action quetiapine 400 mg tablet 400 mg PO BEDTIME quetiapine 50 mg tablet 50 mg PO BID amlodipine 5 mg tablet 5 mg PO DAILY Latuda 80 mg tablet 80 mg PO DAILY Trintellix 20 mg tablet 20 mg PO DAILY ibuprofen 200 mg tablet 200 - 400 mg PO Q6H PRN (Reason: headache) ferrous sulfate [FeroSul] 325 mg (65 mg iron) tablet 325 mg PO TID fluticasone propionate 50 mcg/actuation spray,suspension 1 - 2 spray intranasal DAILY PRN fluticasone propionate [Flovent HFA] 110 mcg/actuation HFA aerosol inhaler 2 puff inhalation BID (DME) blood pressure test kit-large Kit See Rx Instructions .ROUTE DAILY Qty: 1 Rx Instructions: As directed bisacodyl [Dulcolax (bisacodyl)] 5 mg tablet,delayed release (DR/EC) 10 mg PO ONCE 1 Days Qty: 2 0RF Rx Instructions: take 2 tabs at noon the day before your colonoscopy polyethylene glycol 3350 [Miralax] 17 gram/dose powder 238 g PO ONCE Qty: 238 0RF Rx Instructions: As directed by gastroenterology department at [facility] Interventions: ED Discharge Assessment Last Done: 02/19/23 18:35 Discharge Date/Time: 02/19/23 18:36
--- NOTE | 2023-02-19 12:12 | ECG_ITS ---
Test Reason : dizziness Blood Pressure : / mmHG Vent. Rate : 096 BPM Atrial Rate : 096 BPM P-R Int : 132 ms QRS Dur : 070 ms QT Int : 366 ms P-R-T Axes : 064 043 022 degrees QTc Int : 462 ms Normal sinus rhythm Low voltage QRS Borderline ECG When compared with ECG of 20-AUG-2022 13:03, No significant change was found Referred By: Krystal Dang Electronically Signed By:ELVIRA CALL MD
[2023-02-19 12:32] LABS: MANUAL DIFF FLAG NO
[2023-02-19 12:34] LABS: Basophils Percent Auto 0.5 % (0-2); Eosinophils Absolute Auto 0.2 X10*3/uL (0.0-0.4); Eosinophils Percent Auto 2.9 % (0-4); Hematocrit 37.1 % (37.0-47.0); Hemoglobin 12.1 g/dl (12.0-16.0); Imm Gran Abs Auto 0.02 X10*3/uL (0.00-0.03); Imm Gran Pct Auto 0.2 % (0.0-0.4); Mean Corpuscular HGB Conc 32.6 g/dl (31.0-35.0); Mean Corpuscular Hemoglobin 28.9 pg (27.0-33.0); Mean Corpuscular Volume 88.8 fL (80.0-98.0); Mean Platelet Volume 11.5 fL (9.4-12.3); Monocytes Absolute Auto 0.5 X10*3/uL (0.1-1.2); Monocytes Percent Auto 5.6 % (2-11); Neutrophils Absolute Auto 4.4 x10*3/uL (2.0-8.3); Neutrophils Percent Auto 53.8 % (45-73); Platelet Count 287 X10*3/uL (160-400); Red Blood Count 4.18 X10*6/uL (4.20-5.50); Red Cell Distribution Width 13.4 % (11.0-16.0); White Blood Count 8.2 X10*3/uL (4.8-10.8)
[2023-02-19 12:48] LABS: Alanine Aminotransferase 20 U/L (0-31); Albumin Level 4.4 g/dL (3.5-5.0); Alkaline Phosphatase 57 U/L (39-117); Anion Gap 12 (12-20); Aspartate Amino Transferase 21 U/L (5-31); Bilirubin Direct 0.2 mg/dL (0.0-0.5); Bilirubin Total 0.9 mg/dL (0.0-1.0); Blood Urea Nitrogen 21 mg/dL (9-16); Calcium 9.7 mg/dL (8.4-10.2); Carbon Dioxide 25 mmol/L (22-29); Chloride 109 mmol/L (96-108); Creatinine Clr Calc Pharmacy 76.4; Estimated Glomerular Filt Rate > 60; Glucose Random 104 mg/dL (60-115); Magnesium 1.9 mg/dL (1.6-2.6); Potassium 4.2 mmol/L (3.3-5.1); Sodium 142 mmol/L (135-145); Total Protein 7.8 g/dL (6.5-8.0)
[2023-02-19 17:34] LABS: Appearance Urine Cloudy; Color Urine Yellow; Glucose Urine UA Negative (Negative); Leukocyte Esterase Urine Trace (Negative); Nitrite Urine Negative (Negative); Specific Gravity - Urine >= 1.030 (1.005-1.025); UMIC TRIGGER UACC YES; Urine Blood Trace (Negative); Urine Ketones 15 mg/dL (Negative); Urine Protein Trace mg/dL (Neg-Trace)
[2023-02-19 17:40] LABS: Bacteria Urine 1+ (None Seen); Hyaline Casts Urine 0-2 /LPF (0-2); UACC Culture Trigger YES
[2023-02-19 18:19] LABS: Troponin-I High Sensitivity < 2.7 ng/L (<3.5-17.0)
== END 2023-02-19 18:36 | disposition left against medical advice (07) ==
PROVIDERS: Physician Assistant; Emergency Provider Student in an Organized Health Care Education/Training Program; PCP Registered Nurse
DX: R42 Dizziness and giddiness (principal); I10 Essential (primary) hypertension; Z79.899 Other long term (current) drug therapy
CPT/HCPCS: 36415; 80048; 80076; 81001; 83735; 84484; 85025; 87086; 93005; 99284

== ENCOUNTER 2023-06-03 10:11 | Emergency (ER) | payer MEDICAID, SELFPAY ==
--- NOTE | ~2023-06-03 | CT_ITS ---
EXAMINATION: CT ABDOMEN AND PELVIS WITHOUT CONTRAST CLINICAL INFORMATION: RIght flank pain. hematuria. Kidney stones?. COMPARISON: 05/24/2018 CT scan. TECHNIQUE: Multidetector volumetric imaging was performed from the superior aspect of the liver through the pubic symphysis without contrast per renal stone protocol. Sagittal and coronal reformatted images were obtained on the technologist workstation. This CT examination was performed using dose optimization techniques as appropriate, variously including the following: *Automated exposure control *Adjustment of mA and/or kV according to patient size (this includes techniques or standardized protocols for targeted exams where dose is matched to indication/reason for exam; i.e. extremities or head) *Use of iterative reconstruction technique DLP: 563 mGy-cm. FINDINGS: LUNG BASES: The visualized lung bases are unremarkable. LIVER, GALLBLADDER, BILIARY TREE: The non-contrast liver is normal in size, shape, and attenuation. No focal hepatic lesion or biliary ductal dilatation is present. The gallbladder is unremarkable with no evidence of radiopaque gallstones, gallbladder wall thickening, or obvious pericholecystic inflammatory changes. PANCREAS: Unremarkable. SPLEEN: Unremarkable. ADRENAL GLANDS: Unremarkable. KIDNEYS AND URETERS: The kidneys are normal in size, shape, and attenuation. No hydronephrosis, hydroureter, or calculi seen. No perinephric stranding. BLADDER: Unremarkable. GASTROINTESTINAL TRACT: Few scattered colonic diverticula are noted. No colonic wall thickening or pericolonic inflammatory changes. Unremarkable appendix. No small bowel dilatation or irregularity. ABDOMINAL WALL: Tiny fat-containing umbilical hernia LYMPHOVASCULAR STRUCTURES: No lymphadenopathy. The aorta is unremarkable.. PELVIC VISCERA: Unremarkable. OSSEUS STRUCTURES: Unremarkable. CT/CT abdomen pelvis wo IV con IMPRESSION: No acute intra-abdominal process seen. No renal or ureteric calculi. No obstructive changes to the kidneys.
[2023-06-03 10:35] VITALS: BP 142/86; PULSE 74; RESP 18; TEMP 36.7; O2SAT 96; BMI 32.1
[2023-06-03 11:06] LABS: MANUAL DIFF FLAG NO
[2023-06-03 11:08] LABS: Basophils Percent Auto 0.4 % (0-2); Eosinophils Absolute Auto 0.2 X10*3/uL (0.0-0.4); Eosinophils Percent Auto 2.4 % (0-4); Hematocrit 36.1 % (37.0-47.0); Hemoglobin 12.1 g/dl (12.0-16.0); Imm Gran Abs Auto 0.02 X10*3/uL (0.00-0.03); Imm Gran Pct Auto 0.3 % (0.0-0.4); Lymphocytes Absolute Auto 2.2 X10*3/uL (1.2-4.9); Mean Corpuscular HGB Conc 33.5 g/dl (31.0-35.0); Mean Corpuscular Hemoglobin 29.2 pg (27.0-33.0); Mean Corpuscular Volume 87.2 fL (80.0-98.0); Mean Platelet Volume 11.4 fL (9.4-12.3); Monocytes Absolute Auto 0.5 X10*3/uL (0.1-1.2); Monocytes Percent Auto 6.2 % (2-11); Neutrophils Absolute Auto 4.7 x10*3/uL (2.0-8.3); Neutrophils Percent Auto 61.7 % (45-73); Platelet Count 297 X10*3/uL (160-400); Red Blood Count 4.14 X10*6/uL (4.20-5.50); Red Cell Distribution Width 13.9 % (11.0-16.0); White Blood Count 7.6 X10*3/uL (4.8-10.8)
[2023-06-03 11:22] LABS: Alanine Aminotransferase 16 U/L (0-31); Albumin Level 4.4 g/dL (3.5-5.0); Alkaline Phosphatase 53 U/L (39-117); Anion Gap 12 (12-20); Aspartate Amino Transferase 21 U/L (5-31); Bilirubin Total 0.9 mg/dL (0.0-1.0); Blood Urea Nitrogen 11 mg/dL (9-16); Carbon Dioxide 25 mmol/L (22-29); Chloride 107 mmol/L (96-108); Creatinine Clr Calc Pharmacy 90.2; Estimated Glomerular Filt Rate > 60; Glucose Random 94 mg/dL (60-115); Potassium 4.1 mmol/L (3.3-5.1); Sodium 140 mmol/L (135-145); Total Protein 7.9 g/dL (6.5-8.0)
--- NOTE | 2023-06-03 16:37 | ED.GENADULT ---
HPI - General Adult General Chief complaint: Abdominal Pain Stated complaint: r side back pain blood in urine Time Seen by Provider: 06/03/23 16:21 Source: patient Mode of arrival: ambulatory Limitations: no limitations History of Present Illness HPI narrative: 52-year-old female with pmh of hysterectomy presents to the ED for right flank pain with hematuria for the past 5 days. Patient denies any nausea vomiting, fever, or chills. Patient denies any recent trauma. Patient states thought she saw some small stones in her urine. Patient denies any other complaints Related Data Home Medications Medication Instructions Recorded Confirmed amlodipine 5 mg tablet 5 mg PO DAILY 07/03/22 10/18/22 blood pressure test kit-large #1 ea 07/03/22 10/18/22 ferrous sulfate 325 mg (65 mg 325 mg PO TID 07/03/22 10/18/22 iron) tablet (FeroSul) fluticasone propionate 110 2 puff inhalation BID 07/03/22 10/18/22 mcg/actuation HFA aerosol inhaler (Flovent HFA) fluticasone propionate 50 1 - 2 spray intranasal DAILY PRN 07/03/22 10/18/22 mcg/actuation nasal spray,suspension ibuprofen 200 mg tablet 200 - 400 mg PO Q6H PRN headache 07/03/22 10/18/22 lurasidone 80 mg tablet (Latuda) 80 mg PO DAILY 07/03/22 10/18/22 quetiapine 400 mg tablet 400 mg PO BEDTIME 07/03/22 10/18/22 quetiapine 50 mg tablet 50 mg PO BID 07/03/22 10/18/22 vortioxetine 20 mg tablet 20 mg PO DAILY 07/03/22 10/18/22 (Trintellix) Previous Rx's Medication Instructions Recorded bisacodyl 5 mg tablet,delayed 10 mg (2 x 5 mg) PO ONCE 1 day #2 07/03/22 release (Dulcolax (bisacodyl)) tabs polyethylene glycol 3350 17 238 g PO ONCE #238 grams 07/03/22 gram/dose oral powder (Miralax) oxycodone 5 mg tablet 5 mg PO Q8H PRN pain 3 days #9 tabs 06/03/23 Allergies Allergy/AdvReac Type Severity Reaction Status Date / Time Penicillins Allergy Severe RASH Verified 02/19/23 12:10 ITCHY/SWELLING facial swelling Review of Systems Review of Systems: Right flank pain with hematuria. Yes all other systems are reviewed and are negative [facility] Past Medical History Medical History Allergic rhinitis Asthma Chronic dyspnea Depression H. pylori infection HTN (hypertension) Iron deficiency anemia Migraine Pain syndrome, chronic Surgical History Hx of tubal ligation Social History Social History Household Members: Significant Other Alcohol intake: current Alcohol intake frequency: holidays/special occasions only Patient Tobacco Use Status: Never used Tobacco Advance Directives: No Advance Directives Information Provided: Yes Physical Exam ED Vital Signs: Vital Signs - 24 hr 06/03/23 16:53 06/03/23 18:00 Temperature 98.2 F 98.4 F Pulse Rate 71 71 Respiratory Rate 16 16 Blood Pressure 137/93 H 121/75 Pulse Oximetry 100 98 Oxygen Delivery Method Room Air Room Air BMI result Body Mass Index 32.1 Const General: cooperative, healthy appearing, comfortable, no acute distress, well developed, alert, awake and Physically active Orientation/consciousness: oriented to person, oriented to place, oriented to time and patient oriented x3 HENMT Head: Yes normal to inspection, Yes No palpable skull fracture present, Yes normocephalic, Yes atraumatic and No abrasion Eyes General: appearance normal, both eyes and all related structures Neck Neck: Yes normal visual inspection, Yes full ROM, Yes no lymphadenopathy, Yes no meningeal signs, Yes trachea midline, Yes supple, No anterior neck swelling and No tender Chest Chest palpation & inspection: normal inspection of the chest and normal palpation of entire chest wall Resp Effort & Inspection: normal respiratory effort and able to speak in complete sentences Auscultation: clear to auscultation bilaterally Cardio Jugular venous distension: no JVD Heart sounds: S1 normal heart sound present and S2 normal heart sound present GI Inspection: Yes normal to inspection and No abdominal wall ecchymosis Palpation (GI): Soft to palpation, not firm, Tenderness to palpation present (GI) in the RLQ, no guarding and not rigid General: Yes CVA tenderness (Right) Back/Spine/Pelvis Back: CVA tenderness (Right) Skin General skin exam: no rashes or lesions noted and elasticity normal Neuro General: oriented to person, oriented to place, oriented to time, patient oriented x3, gait normal, tone normal, moves all extremities, Normal light touch and pain sensation, no meningeal signs, no focal motor deficits, CN's II-XI intact bilaterally and normal sensation to monofilament Extrem General: Yes normal to inspection and Yes full ROM Psych Appearance: grossly normal, well kempt and not disheveled Medications Administered Discontinued Medications Generic Name Dose Route Start Last Admin Trade Name Miriam PRN Reason Stop Dose Admin Ketorolac Tromethamine 30 mg 06/03/23 18:16 06/03/23 18:48 Ketorolac Tromethamine 30 Mg/Ml Vial IM 06/03/23 18:17 30 mg ONCE ONE Administration 52-year-old female history of hysterectomy presents to ED for right flank pain with hematuria for the past 5 days and also states possible stones in urine. Patient denies any trauma or loss of appetite. Patient states no fever or chills. Patient is not toxic appearing Medical Decision Making Medical Decision Making [facility] Narrative: 52-year-old female presents to ED for right-sided flank pain with hematuria the past 4-5 days. Also states seeing some sediments which might be a stone past couple of days. Patient denies any fever or chills any recent trauma. Patient had hysterectomy. Patient denies any vaginal discharge or vaginal lesions. 7:35pm: Patient's pain improved with Toradol. UA shows blood. Abdominal CT scan came back negative for any abdominal etiology. Probably patient passed a stone. Patient will follow up with Urology for re-evaluation. Patient and family member explain worrisome sign and told to return to the ED they had them. Differential Diagnosis Differential Diagnoses: The differential diagnosis associated with the presentation includes (Pyelonephritis, kidney stones, appendicitis, bladder mass,) Admission/Observation Consideration of admission/observation: Escalation of care including admission/observation considered Lab Data [facility] Lab Attestation statement: I reviewed the patient's lab results. 06/03/23 11:02 06/03/23 11:02 Labs: Lab Results 06/03/23 06/03/23 Range/Units 11:02 16:57 WBC 7.6 (4.8-10.8) X10*3/uL RBC 4.14 L (4.20-5.50) X10*6/uL Hgb 12.1 (12.0-16.0) g/dl Hct 36.1 L (37.0-47.0) % MCV 87.2 (80.0-98.0) fL MCH 29.2 (27.0-33.0) pg MCHC 33.5 (31.0-35.0) g/dl RDW 13.9 (11.0-16.0) % Plt Count 297 (160-400) X10*3/uL MPV 11.4 (9.4-12.3) fL Immature Gran % (Auto) 0.3 (0.0-0.4) % Neut % (Auto) 61.7 (45-73) % Lymph % (Auto) 29.0 (20-40) % [place] % (Auto) 6.2 (2-11) % Eos % (Auto) 2.4 (0-4) % Baso % (Auto) 0.4 (0-2) % Lymph # (Auto) 2.2 (1.2-4.9) X10*3/uL [place] # (Auto) 0.5 (0.1-1.2) X10*3/uL Eos # (Auto) 0.2 (0.0-0.4) X10*3/uL Baso # (Auto) 0.0 (0.0-0.2) X10*3/uL Abs Immat Gran (auto) 0.02 (0.00-0.03) X10*3/uL Absolute Neuts (auto) 4.7 (2.0-8.3) x10*3/uL Absolute Nucleated RBC 0.000 (0.0-0.012) X10*3/uL Nucleated RBC % (auto) 0.0 (0.0-0.2) /100WBC Sodium 140 (135-145) mmol/L Potassium 4.1 (3.3-5.1) mmol/L Chloride 107 (96-108) mmol/L Carbon Dioxide 25 (22-29) mmol/L Anion Gap 12 (12-20) BUN 11 (9-16) mg/dL Creatinine 0.67 (0.5-1.4) mg/dL Estim Creat Clear Calc 90.2 Estimated GFR > 60 Random Glucose 94 (60-115) mg/dL Calcium 10.0 (8.4-10.2) mg/dL Total Bilirubin 0.9 (0.0-1.0) mg/dL AST 21 (5-31) U/L ALT 16 (0-31) U/L Alkaline Phosphatase 53 (39-117) U/L Total Protein 7.9 (6.5-8.0) g/dL Albumin 4.4 (3.5-5.0) g/dL Urine Color RED Urine Appearance Turbid Urine pH 6.0 (5.0-9.0) Ur Specific [place] >= 1.030 H (1.005-1.025) Urine Protein 100 (2+) H (Neg-Trace) mg/dL Urine Glucose (UA) Negative (Negative) mg/dL Urine Ketones 15 (Negative) mg/dL Urine Blood Large (3+) H (Negative) Urine Nitrite Negative (Negative) Ur Leukocyte Esterase Negative (Negative) Urine RBC >20 H (0-2) /HPF Urine WBC 0-5 (0-5) /HPF Ur Squamous Epith Cells 0-2 (0-2) /HPF Urine Bacteria None Seen (None Seen) Hyaline Casts 0-2 (0-2) /LPF Urine Test NEGATIVE (NEGATIVE) Independent Interpretation I performed an independent interpretation of an: CT Scan Radiology Impression Discussion of test interpretation with radiology: I have reviewed the radiologist's reading. Independent Historian Clinical information obtained from an independent historian. History obtained from or confirmed by: Friend Prescription Management I considered prescription management with: Pain Medication Discharge Plan Discharge Clinical Impression: Right flank pain, Hematuria Patient Disposition: Home, Self-Care Instructions: Hematuria (ED), Flank Pain (ED) Additional Instructions: Regrese al servicio de urgencias de inmediato si experimenta dolor abdominal, n?useas, v?mitos, dolor en el costado, fiebre, escalofr?os, empeoramiento de la alonzo en la orina, sangrado vaginal, debilidad, mareos o cualquier otro s?ntoma preocupante. Por favor se un seguimiento con nuestro ur?logo. Prescriptions: New oxycodone 5 mg tablet 5 mg PO Q8H PRN (Reason: pain) 3 Days Qty: 9 0RF Rx Instructions: Partial Fill upon patient request. side effect is drowsiness. Do not take while driving or at work. No Action quetiapine 400 mg tablet 400 mg PO BEDTIME quetiapine 50 mg tablet 50 mg PO BID amlodipine 5 mg tablet 5 mg PO DAILY Latuda 80 mg tablet 80 mg PO DAILY Trintellix 20 mg tablet 20 mg PO DAILY ibuprofen 200 mg tablet 200 - 400 mg PO Q6H PRN (Reason: headache) ferrous sulfate [FeroSul] 325 mg (65 mg iron) tablet 325 mg PO TID fluticasone propionate 50 mcg/actuation spray,suspension 1 - 2 spray intranasal DAILY PRN fluticasone propionate [Flovent HFA] 110 mcg/actuation HFA aerosol inhaler 2 puff inhalation BID (DME) blood pressure test kit-large Kit See Rx Instructions .ROUTE DAILY Qty: 1 Rx Instructions: As directed bisacodyl [Dulcolax (bisacodyl)] 5 mg tablet,delayed release (DR/EC) 10 mg PO ONCE 1 Days Qty: 2 0RF Rx Instructions: take 2 tabs at noon the day before your colonoscopy polyethylene glycol 3350 [Miralax] 17 gram/dose powder 238 g PO ONCE Qty: 238 0RF Rx Instructions: As directed by gastroenterology department at [facility] Referrals: [facility] [Provider Group] (Right flank pain with hematuria. CT scan normal. Possible passed stone) Stand Alone Forms: Work/School Release Interventions: ED Discharge Assessment Last Done: 06/03/23 19:55 Discharge Date/Time: 06/03/23 19:56 Print Language: Sinhala
[2023-06-03 16:53] VITALS: BP 137/93; PULSE 71; RESP 16; TEMP 36.8; O2SAT 100
--- NOTE | 2023-06-03 16:59 | MHC.EDTECH ---
THIS PCT JUST ASSUMED CARE OF PT ,VITALS SIGN TAKEN AND URINE SAMPLE COLLECTED AND SENT LAB .
[2023-06-03 17:14] LABS: UPreg QC Valid YES; Urine Pregnancy NEGATIVE (NEGATIVE)
[2023-06-03 17:16] LABS: Appearance Urine Turbid; UMIC TRIGGER UACC YES
[2023-06-03 17:25] LABS: Glucose Urine UA Negative (Negative); Leukocyte Esterase Urine Negative (Negative); Nitrite Urine Negative (Negative); Specific Gravity - Urine >= 1.030 (1.005-1.025); Urine Blood Large (3+) (Negative); Urine Ketones 15 mg/dL (Negative); Urine Protein 100 (2+) mg/dL (Neg-Trace)
[2023-06-03 17:31] LABS: Color Urine RED
[2023-06-03 17:38] LABS: Bacteria Urine None Seen (None Seen); Hyaline Casts Urine 0-2 /LPF (0-2); Squamous Epithelial Cell Urine 0-2 /HPF (0-2); WBC Urine 0-5 /HPF (0-5)
[2023-06-03 17:39] LABS: RBC Urine >20 /HPF (0-2)
[2023-06-03 18:00] VITALS: BP 121/75; PULSE 71; RESP 16; TEMP 36.9; O2SAT 98
--- NOTE | 2023-06-03 18:03 | PC.NURSE ---
michela resting in bed, describes blood in her urine, awaiting CT. patient has remained NPO
[2023-06-03] MEDS: Ketorolac Tromethamine 30 MG/ML VIAL IM (18:48)
== END 2023-06-03 19:56 | disposition home or self-care (01) ==
PROVIDERS: Physician Assistant; Emergency Provider Emergency Medicine; PCP Registered Nurse
DX: M54.50 Low back pain, unspecified (principal); R31.9 Hematuria, unspecified; R10.9 Unspecified abdominal pain; Z79.899 Other long term (current) drug therapy
CPT/HCPCS: 36415; 74176; 80053; 81001; 81025; 85025; 96372; 99283; 99284; J1885

== ENCOUNTER 2023-06-04 14:07 | Outpatient (REF) | payer MEDICAID, SELFPAY ==
--- NOTE | ~2023-06-04 | MR_ITS ---
EXAMINATION: MR BRAIN WITHOUT AND WITH CONTRAST CLINICAL INFORMATION: Chronic dizziness. COMPARISON: Head CT from 04/24/2019. TECHNIQUE: Multiplanar, multisequential imaging was obtained without and with intravenous contrast. Intravenous contrast: Gadavist 7 mL. Limited study with motion artifacts. FINDINGS: There is cystic encephalomalacia in the right superior frontal gyrus with involvement of the anterior body of the corpus callosum. Surrounding gliosis and chronic hemosiderin staining noted. Findings may be due to a prior parenchymal hemorrhage or hemorrhagic infarct. There is a homogeneously enhancing extra-axial mass along the dorsal aspect of the clivus on the right side distorting the right aspect of the base of the ni posteriorly. The mass measures 2 x 2.2 x 1.3 cm in size. A portion of the lesion extends across the tentorium incisura laterally on the right side. The lesion covers a portion of the dorsum sella and extends along the lateral dural reflection of the right cavernous sinus without obvious infiltration. The superior aspect of the lesion envelops a portion of the supraclinoid right internal carotid artery. There is no extension of the lesion into the pituitary fossa or into Meckel's cave on the right side. The mass medially abuts the right porus trigeminus. No diffusion abnormality is seen. Minimal nonspecific scattered white matter signal changes are visible. Mild ex vacuo dilatation of the frontal horn of right lateral ventricle visible, adjacent to the site of cystic encephalomalacia. The ventricles are otherwise normal in size. No mass effect or midline shift is evident. No extra-axial fluid collections are noted. The brainstem and cerebellum are normal. On postcontrast imaging, there is no abnormal parenchymal or leptomeningeal enhancement. The VII and VIII cranial nerve complexes are normal in course and caliber. No signal abnormality is visualized within the inner ear structures on the precontrast axial T1-weighted sequence. Fluid signal is preserved within the cochlea, semicircular canals, and vestibule on the high-resolution axial FIESTA sequence. No cerebellopontine angle lesion is noted. There is no abnormal labyrinthine or intracanalicular enhancement on postcontrast imaging. The craniovertebral junction, marrow signal, and remaining midline structures are normal. The visualized portions of the major intracranial flow voids at the level of the [place] are preserved. The dural venous sinus flow voids are maintained. There is a mild amount of fluid in the right mastoid air cells. The left mastoid air cells are clear. There is mild mucosal thickening in the paranasal sinuses with imaging findings of prior functional endoscopic sinus surgery. Medial wall antrostomies noted with bilateral partial internal ethmoidectomies. Sigmoidal-shaped nasal septal deviation noted as well. MR/MR head/brain wo/w con IMPRESSION: No retrocochlear pathology. Mild right mastoid effusion. Chronic cystic encephalomalacia with marginal gliosis and hemosiderin staining involving the right superior frontal gyrus and a portion of the anterior body of the corpus callosum. Nonspecific mild scattered white matter signal changes. Incidental 2 x 2.2 x 1.3 cm extra-axial homogeneously enhancing mass in the prepontine cistern on the right side, partially covering the lateral dural reflection of the right cavernous sinus and the right tentorium incisura, suspected to represent a meningioma. Very mild mass effect upon the base of the ni on the right side.
[2023-06-04] MEDS: gadobutroL 7.5 ML VIAL IVPUSH (14:39)
== END 2023-06-04 14:08 | disposition home or self-care (01) ==
LOC: HO.MRI 14:07
PROVIDERS: Visit Provider Registered Nurse
DX: R42 Dizziness and giddiness (principal)
CPT/HCPCS: 70553; A9585

== ENCOUNTER 2023-07-15 10:00 | Outpatient (AMB) | payer MEDICAID, SELFPAY ==
--- NOTE | 2023-07-15 10:03 | A.OFFVIS_ITS ---
Intake Intake Visit Reasons: ER Follow up/nephrolithiasis Intake Note: NEW Patient presents today to established treatment for Nephrolithiasis: Meds- None Allergies to Antibiotic- Penicillin Blood Thinner- None Patient Symptoms: None Microwave Remote Sensing Scientist Required: No Accompanied by: Significant Other Allergies Penicillins Allergy (Severe, Verified 07/15/23 10:12) RASH ITCHY/SWELLING facial swelling Medication List - Last Reconciled 07/15/23 by Zoie Locke MD amlodipine 5 mg PO DAILY bisacodyl (Dulcolax (bisacodyl)) 10 mg (2 x 5 mg) PO ONCE 1 day blood pressure test kit-large As directed ferrous sulfate (FeroSul) 325 mg PO TID fluticasone propionate 50 mcg/actuation 1 - 2 sprays intranasal DAILY PRN fluticasone propionate 110 mcg/actuation (Flovent HFA) 2 puffs inhalation BID ibuprofen 200 - 400 mg PO Q6H PRN lurasidone (Latuda) 80 mg PO DAILY oxycodone 5 mg PO Q8H PRN 3 days polyethylene glycol 3350 (Miralax) 238 grams PO ONCE quetiapine 400 mg PO BEDTIME quetiapine 50 mg PO BID vortioxetine (Trintellix) 20 mg PO DAILY HPI HPI Comments History of Present Illness Details Nazanin is a 52-year-old female who presents today to the office to establish as a evaluation post ED evaluation on 06/03/23. 07/15/23? Nazanin was last seen in the urology office on 10/18/2022 by NURIA. Maia Arguelles. She was seen due to the complaints of bilateral flank pain, right side greater than the left. The [employer] PRESIDENT/PRACTICE OWNER recommended renal US which was done on 01/03/2023 which revealed 6 mm fatty lesion consistent with angiomyolipoma of the upper pole of the right kidney. She was seen in ER for right flank pain with hematuria on 06/03/23. She was referred to return to urology office during that time.? She states that she had gross hematuria and right flank pain which brought her to the ED and was told that she may have passed a kidney stone. She states the blood was in the urine and not on her panty-liner. In general she states she has urinary symptoms of urgency but admits to consuming large volume of pepsi daily. She denies ever having pain with urination or bladder or Urinary tract infections. PMH-Htn, chronic pain syndrome, iron deficiency anemia, states she is on Latuda due to hearing voices in review of chart she has had w/u by TELEPHONE STERILIZER for vaginal bleeding. I reviewed the CT abdomen/pelvis results from 06/03/23 revealed no acute intra- abdominal process seen. No renal or ureteric calculi. No obstructive changes to the kidneys. Evaluation today?UA?Leukocytes: negative: blood: 1 +; protein: 15 mg/dl. Plan: Advised the patient to limit the caffeine intake. Follow-up in office Cystoscopy. [facility] Medical History Asthma H. pylori infection Chronic dyspnea Pain syndrome, chronic Iron deficiency anemia Allergic rhinitis Migraine Depression HTN (hypertension) Surgical History Hx of tubal ligation Family History Father No problems noted. Mother No problems noted. Social History Household Members: Significant Other Alcohol intake: current Alcohol intake frequency: holidays/special occasions only Patient Tobacco Use Status: Never used Tobacco Female Reproductive History Menstrual Age of Menarche: 10 Review of Systems Const All systems reviewed & are unremarkable except as noted in HPI and below Reports no additional complaints Eyes Reports no additional complaints ENT Reports no additional complaints Card Denies dyspnea Resp Denies cough and Denies dyspnea GI Reports no additional complaints Reports no additional complaints Musc Reports no additional complaints Skin/Breast Denies rash and Denies unusual bruising Neuro Reports no additional complaints Psych Reports no additional complaints Endo Reports no additional complaints Nick/Lymph Reports no additional complaints Aller/Immun Reports no additional complaints Physical Exam Const General: cooperative, healthy appearing and no acute distress Orientation/consciousness: patient oriented x3 HEENT Head: Yes normal to inspection, Yes normocephalic and Yes atraumatic Eyes Conjunctivae: conjunctivae normal Neck Neck: Yes normal visual inspection and Yes trachea midline Chest Chest palpation & inspection: normal inspection of the chest Resp Effort & Inspection: normal respiratory effort Cardio Rate: regular rate GI Inspection: Yes normal to inspection Skin General skin exam: no rashes or lesions noted Neuro General: patient oriented x3 Extrem General: No edema Psych Appearance: grossly normal Results AMB Urinalysis, Automated UA Leukoctes 0 Flor/uL Last Edit by LUIS Borjas on 07/15/23 10:21 UA Nitrite Negative Last Edit by LUIS Borjas on 07/15/23 10:21 UA Urobilinogen 0.2 mg/dL Last Edit by Latasha Gunter Martha on 07/15/23 10:2 1 UA Protein 15 mg/dL Last Edit by LUIS Borjas on 07/15/23 10:21 UA pH 6.0 Last Edit by Latasha Gunter Martha on 07/15/23 10:21 UA Blood 25 Federico/uL Last Edit by Latasha Gunter Martha on 07/15/23 10:21 1+ Latasha Gunter 07/15/23 10:21 UA Specific [place] 1.030 Last Edit by LUIS Borjas on 07/15/23 10: 21 UA Ketone Negative Last Edit by LUIS Borjas on 07/15/23 10:21 UA Bilirubin 0 mg/dL Last Edit by Latasha Gunter [facility] on 07/15/23 10:21 UA Glucose 0 mg/dL Last Edit by Latasha Gunter [facility] on 07/15/23 10:21 Results Reviewed Results Reviewed: Laboratory Last Values Urine pH (Auto) 6.0 07/15/23 10:18 Specific [place] (Auto) 1.030 07/15/23 10:18 Urine Protein (Auto) 15 mg/dL 07/15/23 10:18 Glucose (UA)(Auto) 0 mg/dL 07/15/23 10:18 Urine Ketones (Auto) Negative 10/23/23 10:18 Urine Blood (Auto) 25 Federico/uL 07/15/23 10:18 Urine Nitrite (Auto) Negative 07/15/23 10:18 Urine Bilirubin (Auto) 0 mg/dL 07/15/23 10:18 Urine Urobilinogen (Auto) 0.2 mg/dL 07/15/23 10:18 Leukocyte Esterase (Auto) 0 Flor/uL 07/15/23 10:18 Date of Service: 06/03/23 EXAMINATION:? CT ABDOMEN AND PELVIS WITHOUT CONTRAST CLINICAL INFORMATION:? RIght flank pain. hematuria. Kidney stones?. COMPARISON:? 05/24/2018 CT scan. FINDINGS: LUNG BASES: The visualized lung bases are unremarkable. LIVER, GALLBLADDER, BILIARY TREE: The non-contrast liver is normal in size, shape, and attenuation. No focal hepatic lesion or biliary ductal dilatation is present.? The gallbladder is unremarkable with no evidence of radiopaque gallstones, gallbladder wall thickening, or obvious pericholecystic inflammatory changes. PANCREAS: Unremarkable. SPLEEN: Unremarkable. ADRENAL GLANDS: Unremarkable. KIDNEYS AND URETERS: The kidneys are normal in size, shape, and attenuation. No hydronephrosis, hydroureter, or calculi seen. No perinephric stranding.? BLADDER: Unremarkable. GASTROINTESTINAL TRACT: Few scattered colonic diverticula are noted. No colonic wall thickening or pericolonic inflammatory changes. Unremarkable appendix. No small bowel dilatation or irregularity. ABDOMINAL WALL: Tiny fat-containing umbilical hernia LYMPHOVASCULAR STRUCTURES: No lymphadenopathy.? The aorta is unremarkable.. PELVIC VISCERA: Unremarkable. OSSEUS STRUCTURES: Unremarkable. IMPRESSION: No acute intra-abdominal process seen. No renal or ureteric calculi. No obstructive changes to the kidneys. Date of Service: 01/03/23 EXAMINATION: US RETROPERITONEAL COMPLETE (RENAL) CLINICAL INFORMATION: Unspecified abdominal pain. COMPARISON: Ultrasound abdomen limited 10/27/2018. CT abdomen and pelvis with contrast 05/24/2018. Ultrasound abdomen complete 03/25/2018. FINDINGS: RIGHT KIDNEY: 10.7 x 5.4 x 5.6 cm (SAG x AP x TRV). The kidney is normal in size, contour, and echogenicity. Renal cortical thickness is normal. No renal calculi. Mild caliectasis is suspected. The upper pole, a 6 x 5.4 mm hyperechoic benign angiomyolipoma is redemonstrated, consistent with prior CT findings (3:275). LEFT KIDNEY: 11.4 x 5.1 x 4.8 cm (SAG x AP x TRV). The kidney is normal in size, contour, and echogenicity. Renal cortical thickness is normal. No calculi or focal parenchymal lesions. Mild caliectasis is suspected. BLADDER: Well distended and normal. Bilateral ureteral jets are demonstrated. Prevoid bladder volume is 207 mL. Postvoid bladder volume is 18 mL. IMPRESSION: 1. Mild bilateral renal caliectasis is suspected. 2. A 6 mm benign, fat-containing angiomyolipoma is redemonstrated at the upper pole of the right kidney Assessment & Plan Assessment & Plan (1) Gross hematuria: Code(s): R31.0 - Gross hematuria (2) Angiomyolipoma of right kidney: Code(s): D17.71 - Benign lipomatous neoplasm of kidney Plan Advised the patient to limit the caffeine intake. Follow-up in office Cystoscopy. Orders: Orders AMB Urinalysis Automated Today Z13.9 - Encounter for screening, unspecified Patient Instructions: The patient had an opportunity to ask questions regarding treatment plan. All questions were answered. Imaging, Laboratory studies and physical exam results were discussed and reviewed in detail. No major barriers to understanding were identified. The patient expressed understanding and agreement with the above treatment plan.? ? ? The patient is aware they should contact our office by phone for worsening of their current condition or the appearance of new symptoms. Compliance is encouraged with any medications and followup testing that is ordered.? ? ? It is a privilege to be allowed the opportunity to participate in the urologic care of your patient. If you have any questions or concerns regarding treatment for the above conditions please do not hesitate to contact me. The office telephone contact is [phone].? ? ? This note is constructed in part using voice recognition software. While every effort has been made to ensure accuracy volunteer assistant errors may have been included.? ? ? Yours sincerely,? ? ? Zoie Locke MD? Coding Level of Care Code Est Pt Level 4 (47929) Diagnoses Gross hematuria R31.0 Angiomyolipoma of right kidney D17.71
== END 2023-07-15 10:58 | disposition home or self-care (01) ==
PROVIDERS: PCP Registered Nurse; Visit Provider Urology
DX: R31.0 Gross hematuria (principal); D17.71 Benign lipomatous neoplasm of kidney; Z13.9 Encounter for screening, unspecified
CPT/HCPCS: 99214

== ENCOUNTER → 2023-07-15 10:00 | Outpatient (BNVA) | payer MEDICAID, SELFPAY | PROVIDERS: PCP Registered Nurse; Visit Provider Urology | DX: D17.71 Benign lipomatous neoplasm of kidney (principal); R31.0 Gross hematuria | CPT/HCPCS: 81003; 99212 ==

== ENCOUNTER 2023-08-02 09:28 | Outpatient (REF) | payer MEDICAID, SELFPAY ==
[2023-08-02 11:15] LABS: Appearance Urine Cloudy; Bacteria Urine None Seen (None Seen); Color Urine Yellow; Glucose Urine UA Negative (Negative); Hyaline Casts Urine 0-2 /LPF (0-2); Leukocyte Esterase Urine Trace (Negative); Nitrite Urine Negative (Negative); PH 5.5 (5.0-9.0); RBC Urine >20 /HPF (0-2); Specific Gravity - Urine 1.025 (1.005-1.025); UMIC TRIGGER UA YES; Urine Blood Large (3+) (Negative); Urine Ketones Negative (Negative); Urine Protein Negative (Neg-Trace); WBC Urine 0-5 /HPF (0-5)
== END 2023-08-02 09:29 | disposition home or self-care (01) ==
LOC: HO.LAB 09:28
PROVIDERS: PCP Internal Medicine; Visit Provider Urology
DX: R31.0 Gross hematuria (principal)
CPT/HCPCS: 81001; 87086; 87147

== ENCOUNTER 2023-08-13 09:27 | Day surgery (SDC) | payer MEDICAID, SELFPAY ==
--- NOTE | 2023-08-12 09:51 | HO.ANESPROP2 ---
HPI - Anesthesia Eval Consult details Narrative: 52yo F for Cystoscopy Hydrodistention of Bladder,with poss biopsy s/p D&C hyst 09/2022 with LMA 4 PMFSH Active Problems Active Problems: All Active Problems (Updated 07/15/23 @ 17:09 by Zoie Locke MD) Angiomyolipoma of right kidney (Acute) Gross hematuria (Acute) Postmenopausal bleeding (Acute) Bilateral flank pain (Acute) Postmenopausal bleeding (Acute) Bacterial vaginosis (Acute) Past Medical History Medical History Asthma H. pylori infection Chronic dyspnea Pain syndrome, chronic Iron deficiency anemia Allergic rhinitis Migraine Depression HTN (hypertension) Family History Family History Father No problems noted. Mother No problems noted. Surgical History Surgical History Hx of tubal ligation History of Problems with Anesthesia: No Social History Social History Household Members: Significant Other Alcohol intake: current Alcohol intake frequency: holidays/special occasions only Patient Tobacco Use Status: Never used Tobacco Meds Allergies Allergy/AdvReac Type Severity Reaction Status Date / Time Penicillins Allergy Severe RASH Verified 07/15/23 10:12 ITCHY/SWELLING facial swelling Home Medications Medication Instructions Recorded Confirmed Last Taken Type amlodipine 5 mg tablet 5 mg PO DAILY 07/03/22 07/15/23 Unknown History blood pressure test kit-large #1 ea 07/03/22 10/18/22 Unknown History ferrous sulfate 325 mg (65 mg 325 mg PO TID 07/03/22 07/15/23 09/21/22 History iron) tablet (FeroSul) fluticasone propionate 110 2 puff inhalation BID 07/03/22 07/15/23 Unknown History mcg/actuation HFA aerosol inhaler (Flovent HFA) fluticasone propionate 50 1 - 2 spray intranasal DAILY PRN 07/03/22 07/15/23 Unknown History mcg/actuation nasal spray,suspension ibuprofen 200 mg tablet 200 - 400 mg PO Q6H PRN headache 07/03/22 07/15/23 09/23/22 History lurasidone 80 mg tablet (Latuda) 80 mg PO DAILY 07/03/22 07/15/23 Unknown History quetiapine 400 mg tablet 400 mg PO BEDTIME 07/03/22 07/15/23 Unknown History quetiapine 50 mg tablet 50 mg PO BID 07/03/22 07/15/23 Unknown History vortioxetine 20 mg tablet 20 mg PO DAILY 07/03/22 10/18/22 Unknown History (Trintellix) Exam Pertinent Lab Results Pertinent Lab Results: Laboratory Tests 06/03/23 11:02 WBC 7.6 Hgb 12.1 Hct 36.1 L Plt Count 297 Sodium 140 Potassium 4.1 Chloride 107 Carbon Dioxide 25 BUN 11 Creatinine 0.67 Narrative Narrative: EKG 2022 Vent. Rate : 096 BPM Atrial Rate : 096 BPM P-R Int : 132 ms QRS Dur : 070 ms QT Int : 366 ms P-R-T Axes : 064 043 022 degrees QTc Int : 462 ms Normal sinus rhythm Low voltage QRS Borderline ECG When compared with ECG of 20-AUG-2022 13:03, No significant change was found Assessment and Plan Assessment Anesthesia Assessment: Chart Reviewed Final Anesthetic Review History of Problems with Anesthesia: No
[2023-08-13 09:51] VITALS: BMI 31.2
[2023-08-13 10:11] VITALS: BP 143/83; PULSE 82; RESP 16; TEMP 35.9; O2SAT 100
[2023-08-13] MEDS: Lactated Ringers 1,000 ML 100 ML IVCONT (10:18)
--- NOTE | 2023-08-13 10:36 | MHC.SHP ---
Pre-Procedural Eval Section A Date of Service: 08/13/23 The patient is an INPATIENT: No The History & Physical has been completed within 30 days and I have reviewed it.: Yes Section B Chief Complaint: Gross hematuria Allergies: Allergies Allergy/AdvReac Type Severity Reaction Status Date / Time Penicillins Allergy Severe RASH Verified 08/13/23 10:33 ITCHY/SWELLING facial swelling Plan Diagnosis/Plan: Unchanged I have reviewed the history and physical and performed a pertinent physical examination on my patient. No changes have occurred unless specified. Cystoscopy hydrodistension, possible bladder biopsy. Discussed risks to include but not limited to, blood in the urine, burning with urination, urgency. Time Spent With Patient Time: Total time managing care of this patient today ____ minutes.
--- NOTE | 2023-08-13 11:10 | HO.ANESPROP2 ---
[facility] Active Problems Active Problems: All Active Problems (Updated 07/15/23 @ 17:09 by Zoie Locke MD) Angiomyolipoma of right kidney (Acute) Gross hematuria (Acute) Postmenopausal bleeding (Acute) Bilateral flank pain (Acute) Postmenopausal bleeding (Acute) Bacterial vaginosis (Acute) Past Medical History Medical History Asthma H. pylori infection Chronic dyspnea Pain syndrome, chronic Iron deficiency anemia Allergic rhinitis Migraine Depression HTN (hypertension) Family History Family History Father No problems noted. Mother No problems noted. Surgical History Surgical History Hx of tubal ligation History of Problems with Anesthesia: No Social History Household Members: Significant Other Alcohol intake: current Alcohol intake frequency: holidays/special occasions only Patient Tobacco Use Status: Never used Tobacco Use of substances other than those prescribed or required for medical reasons: No Are you DNR?: No Advance Directives: No Advance Directives Information Provided: Yes Meds Allergies Allergy/AdvReac Type Severity Reaction Status Date / Time Penicillins Allergy Severe RASH Verified 08/13/23 10:33 ITCHY/SWELLING facial swelling Active Medications: Current Medications Albuterol Sulfate (Albuterol Sulfate (0.083%) 2.5 Mg/3 Ml Vial.Neb) 2.5 mg INHALE ONCE PRN PRN Reason: Shortness of Breath/Wheezing Fentanyl (Fentanyl Citrate/Pf 100 Mcg/2 Ml Vial) 25 mcg IVPUSH Q5M PRN; Protocol PRN Reason: Pain, Moderate(Pain Scale 4-6) Lactated Ringer's (Lr) 1,000 mls @ 100 mls/hr IVCONT .Q10H JEFE Last Admin: 08/13/23 10:18 Dose: 100 mls/hr Ondansetron HCl (Ondansetron Hcl 4 Mg/2 Ml Vial) 4 mg IVPUSH ONCE PRN PRN Reason: Nausea and Vomiting Home Medications Medication Instructions Recorded Confirmed Last Taken Type amlodipine 5 mg tablet 5 mg PO DAILY 07/03/22 08/13/23 08/12/23 History blood pressure test kit-large #1 ea 07/03/22 10/18/22 Unknown History ferrous sulfate 325 mg (65 mg 325 mg PO TID 07/03/22 08/13/23 08/12/23 History iron) tablet (FeroSul) fluticasone propionate 110 2 puff inhalation BID 07/03/22 08/13/23 08/12/23 History mcg/actuation HFA aerosol inhaler (Flovent HFA) fluticasone propionate 50 1 - 2 spray intranasal DAILY PRN 07/03/22 07/15/23 Unknown History mcg/actuation nasal spray,suspension ibuprofen 200 mg tablet 200 - 400 mg PO Q6H PRN headache 07/03/22 08/13/23 08/06/23 History lurasidone 80 mg tablet (Latuda) 80 mg PO DAILY 07/03/22 08/13/23 08/12/23 History quetiapine 400 mg tablet 400 mg PO BEDTIME 07/03/22 08/13/23 08/12/23 History quetiapine 50 mg tablet 50 mg PO BID 07/03/22 08/13/23 08/12/23 History vortioxetine 20 mg tablet 20 mg PO DAILY 07/03/22 08/13/23 08/12/23 History (Trintellix) Exam Height,Weight and Vital Signs: Height 5 ft Weight 72.575 kg Last Vital Signs Temp 96.7 F L 08/13/23 10:11 Pulse 82 08/13/23 10:11 Resp 16 08/13/23 10:11 BP 143/83 H 08/13/23 10:11 Pulse Ox 100 08/13/23 10:11 O2 Del Method Room Air 08/13/23 10:11 Airway Mallampati Class: I TM Dist: >3cm Neck ROM: Full Heart: rrr Lungs: clear Assessment and Plan Final Anesthetic Review History of Problems with Anesthesia: No NPO: Yes ASA Class: II Final Preanesthetic Review: No Changes in Pt Med Stat, Meds/Allgs Chart Reviewed, Consent Obtained/Reviewed and Anes Risks/Benef Reviewed Patient Risk: Intermediate Procedure Risk: Low Anesthetic Plan Anesthetic Plan: GA Disposition: Standard PACU
--- NOTE | 2023-08-13 12:03 | W.PM.OPN ---
Operative Note Operative Note Date of Service: 08/13/23 Narrative: PREOP DIAGNOSIS: hematuria POSTOP DIAGNOSIS: hematuria, Interstitial cystitis, urethral stenosis PROCEDURE: CYSTOSCOPY HYDRODISTENTION, URETHRAL DILATION, BLADDER INSTILLATION Anethesia: General Surgeon: Dr. Zoie Locke Indications: Details of procedure: The patient was brought into the operating room placed on the OR table in supine position. Levaquin 500mg IV. General anesthesia was administered. The patient was repositioned into lithotomy position, prepped and draped in the usual sterile fashion. Time-out was done per protocol. On attempts to place the 22 fr cystoscope transurethrally there was resistance at the uretheral meatus. [employer] urethral sounds were used to dilate the urethral meatus starting with the 16 fr and sequentially dilated up to a 24 fr. The 22 fr cystoscope was than passed transurethrally into the bladder. Urine was drained from the bladder measuring 80 mL.The right and left ureteral orifices were visualized. The entire bladder was visualized. There were no suspicious bladder lesions seen. There were mild trabeculations noted. The bladder was filled with sterile water at 80 cm of water pressure under gravity. The bladder was distended for 2 minutes. Bladder capacity measured 375 mL. Revisualization of the bladder, noted mild/mod glomerulations seen on multiple quadrants of the bladder. No Sai ulcerations. The bladder was refilled with sterile water again at 80 cm of water pressure under gravity. The bladder was distended for 2 minutes. The fluid was drained from the bladder and measured 450 mL. The cystoscope was removed. 2% lidocaine urojet was passed transurethrally, Solution of (1% lidocaine plain, 15 mL, 0.5 % Marcaine 15 mL mixed with 30, 000 units of heparin concentration 5000 units per mL total of 6 mL hepaine) instilled transurethrally into the bladder. The patient was brought out of anesthesia and taken to recovery in stable condition. Complications: None
[2023-08-13 12:12] VITALS: BP 103/70; PULSE 117; RESP 17; TEMP 36.3; O2SAT 99
[2023-08-13 12:17] VITALS: BP 120/74; PULSE 97; RESP 17; O2SAT 97
[2023-08-13 12:22] VITALS: BP 118/74; PULSE 95; RESP 17; O2SAT 96
[2023-08-13 12:27] VITALS: BP 114/80; PULSE 93; RESP 17; O2SAT 99
[2023-08-13] MEDS: Phenazopyridine HCL 200 MG TABLET PO (12:27)
[2023-08-13 12:45] VITALS: BP 111/65; PULSE 90; RESP 18; TEMP 36.2; O2SAT 99
== END 2023-08-13 13:53 | disposition home or self-care (01) ==
PROVIDERS: PCP Internal Medicine; Visit Provider Urology
PROC: 0T7B7ZZ Dilation of Bladder, Via Natural or Artificial Opening (ICD-10-PCS; CPT 52260; principal; 2023-08-13 11:50)
DX: R31.0 Gross hematuria (principal); N30.11 Interstitial cystitis (chronic) with hematuria; N35.92 Unspecified urethral stricture, female; I10 Essential (primary) hypertension; D17.71 Benign lipomatous neoplasm of kidney; D50.9 Iron deficiency anemia, unspecified; J45.909 Unspecified asthma, uncomplicated; Z79.899 Other long term (current) drug therapy
CPT/HCPCS: 52260; 52285; J1100; J1644; J1956; J2250; J2405; J2704; J2795; J3010

== ENCOUNTER → 2023-08-13 09:27 | Outpatient (BNV) | payer MEDICAID, SELFPAY | PROVIDERS: PCP Internal Medicine; Visit Provider Urology | DX: N35.82 Other urethral stricture, female (principal); N30.10 Interstitial cystitis (chronic) without hematuria; R31.9 Hematuria, unspecified | CPT/HCPCS: 52260; 52285 ==

== ENCOUNTER 2023-08-30 13:18 | Outpatient (AMB) | payer MEDICAID, SELFPAY ==
--- NOTE | 2023-08-30 13:21 | A.OFFVIS_ITS ---
Intake Intake Visit Reasons: S/P Hydrodistention/Poss bladder bx Intake Note: Patient presents today for Post Op follow-up Meds- None Allergies to Antibiotic- Penicillin Blood Thinner- None Patient Symptoms: Right side pain Offset Plate Maker Required: No Accompanied by: Significant Other Allergies Penicillins Allergy (Severe, Verified 08/30/23 13:29) RASH ITCHY/SWELLING facial swelling Medication List - Last Reconciled 08/30/23 by Zoie Locke MD amlodipine 5 mg PO DAILY blood pressure test kit-large As directed doxycycline hyclate 100 mg PO BID 5 days ferrous sulfate (FeroSul) 325 mg PO TID fluticasone propionate 50 mcg/actuation 1 - 2 sprays intranasal DAILY PRN fluticasone propionate 110 mcg/actuation (Flovent HFA) 2 puffs inhalation BID ibuprofen 200 - 400 mg PO Q6H PRN lurasidone (Latuda) 80 mg PO DAILY oxycodone-acetaminophen 5-325 mg (Percocet) 1 tab PO Q6H PRN phenazopyridine (Pyridium) 200 mg PO Q8H PRN quetiapine 400 mg PO BEDTIME quetiapine 50 mg PO BID vortioxetine (Trintellix) 20 mg PO DAILY HPI HPI Comments History of Present Illness Details Nazanin is a 52-year-old female who presents today to the office for a follow-up. 08/30/2023-- She is a status post hydrodistention/ possible bladder biopsy done on 08/13/2023. She is present with her . The patient is a Barbadian speaking female. Certified medical staff services manager was present during the visit. I did discuss with the patient that the cystoscopy findings were consistent with interstitial cystitis. Discussed diet modifications with the patient. Advised the patient to avoid acidic foods, caffeine and carbonated beverages. 08/30/2023: Plan: To schedule bladder instillations with the Nurse once a week for 6 weeks and once a month for maintenance. Pyridium 200 mg was ordered. Follow-up with me in 4 months. COUNTS INCLUDE 234 BEDS AT THE [facility] Medical History Asthma H. pylori infection Chronic dyspnea Pain syndrome, chronic Iron deficiency anemia Allergic rhinitis Migraine Depression HTN (hypertension) Surgical History Hx of tubal ligation Family History Father No problems noted. Mother No problems noted. Social History Household Members: Significant Other Alcohol intake: current Alcohol intake frequency: holidays/special occasions only Patient Tobacco Use Status: Never used Tobacco Female Reproductive History Menstrual Age of Menarche: 10 Review of Systems Const All systems reviewed & are unremarkable except as noted in HPI and below Reports no additional complaints Eyes Reports no additional complaints ENT Reports no additional complaints Card Denies dyspnea Resp Denies cough and Denies dyspnea GI Reports no additional complaints Reports no additional complaints Musc Reports no additional complaints Skin/Breast Denies rash and Denies unusual bruising Neuro Reports no additional complaints Psych Reports no additional complaints Endo Reports no additional complaints Nick/Lymph Reports no additional complaints Aller/Immun Reports no additional complaints Physical Exam Const General: cooperative, healthy appearing and no acute distress Orientation/consciousness: patient oriented x3 HEENT Head: Yes normal to inspection, Yes normocephalic and Yes atraumatic Eyes Conjunctivae: conjunctivae normal Neck Neck: Yes normal visual inspection and Yes trachea midline Chest Chest palpation & inspection: normal inspection of the chest Resp Effort & Inspection: normal respiratory effort Cardio Rate: regular rate GI Inspection: Yes normal to inspection Skin General skin exam: no rashes or lesions noted Neuro General: patient oriented x3 Extrem General: No edema Psych Appearance: grossly normal Results AMB Urinalysis, Automated UA Leukoctes 0 Flor/uL Last Edit by LUIS Borjas on 08/30/23 13:48 UA Nitrite Negative Last Edit by LUIS Borjas on 08/30/23 13:48 UA Urobilinogen 0.2 mg/dL Last Edit by LUIS Borjas on 08/30/23 13:4 8 UA Protein 15 mg/dL Last Edit by LUIS Borjas on 08/30/23 13:48 UA pH 6.0 Last Edit by Latasha Gunter A on 08/30/23 13:48 UA Blood 80 Federico/uL Last Edit by aLtasha Gunter A on 08/30/23 13:48 2+ Latasha Gunter 08/30/23 13:48 UA Specific [place] 1.030 Last Edit by CARMEN BorjasA on 08/30/23 13: 48 UA Ketone Negative Last Edit by Latasha Gunter A on 08/30/23 13:48 UA Bilirubin 0 mg/dL Last Edit by Latasha Gunter Martha on 08/30/23 13:48 UA Glucose 0 mg/dL Last Edit by Latasha Gunter A on 08/30/23 13:48 Results Reviewed Results Reviewed: Laboratory Last Values Urine pH (Auto) 6.0 08/30/23 13:40 Specific [place] (Auto) 1.030 08/30/23 13:40 Urine Protein (Auto) 15 mg/dL 08/30/23 13:40 Glucose (UA)(Auto) 0 mg/dL 08/30/23 13:40 Urine Ketones (Auto) Negative 08/30/23 13:40 Urine Blood (Auto) 80 Federico/uL 08/30/23 13:40 Urine Nitrite (Auto) Negative 08/30/23 13:40 Urine Bilirubin (Auto) 0 mg/dL 08/30/23 13:40 Urine Urobilinogen (Auto) 0.2 mg/dL 08/30/23 13:40 Leukocyte Esterase (Auto) 0 Flor/uL 08/30/23 13:40 Assessment & Plan Assessment & Plan (1) Interstitial cystitis: Code(s): N30.10 - Interstitial cystitis (chronic) without hematuria (2) Bladder pain: Code(s): R39.89 - Other symptoms and signs involving the genitourinary system Plan To schedule bladder instillations with the VIDEO NEWS EDITOR once a week for 6 weeks and once a month for maintenance. Pyridium 200 mg was ordered. Follow-up with me in 4 months. Orders: Orders AMB Urinalysis Automated 08/30/23 Z13.9 - Encounter for screening, unspecified Medications: New phenazopyridine (Pyridium) 200 mg PO Q8H PRN 30 tabs 3RF pain Patient Instructions: The patient had an opportunity to ask questions regarding treatment plan. All questions were answered. Imaging, Laboratory studies and physical exam results were discussed and reviewed in detail. No major barriers to understanding were identified. The patient expressed understanding and agreement with the above treatment plan. The patient is aware they should contact our office by phone for worsening of their current condition or the appearance of new symptoms. Compliance is encouraged with any medications and followup testing that is ordered. It is a privilege to be allowed the opportunity to participate in the urologic care of your patient. If you have any questions or concerns regarding treatment for the above conditions please do not hesitate to contact me. The office telephone contact is [phone]. This note is constructed in part using voice recognition software. While every effort has been made to ensure accuracy clerk stenographer errors may have been included. Yours sincerely, Zoie Locke MD Coding Level of Care Code Est Pt Level 4 (64641) Diagnoses Interstitial cystitis N30.10 Bladder pain R39.89
== END 2023-08-30 14:28 | disposition home or self-care (01) ==
PROVIDERS: PCP Internal Medicine; Visit Provider Urology
DX: N30.10 Interstitial cystitis (chronic) without hematuria (principal); R39.89 Other symptoms and signs involving the genitourinary system
CPT/HCPCS: 99214

== ENCOUNTER → 2023-08-30 13:18 | Outpatient (BNVA) | payer MEDICAID, SELFPAY | PROVIDERS: PCP Internal Medicine; Visit Provider Urology | DX: N30.10 Interstitial cystitis (chronic) without hematuria (principal); R39.89 Other symptoms and signs involving the genitourinary system | CPT/HCPCS: 81003; 99212 ==

== ENCOUNTER 2023-10-16 12:43 | Outpatient (REF) | payer MEDICAID, SELFPAY ==
[2023-10-16 14:33] LABS: C Reactive Protein 0.53 mg/dL (< or = 0.50)
[2023-10-16 14:39] LABS: Rheumatoid Factor < 13.0 IU/mL (<15.0)
[2023-10-16 15:02] LABS: Erythrocyte Sedimentation Rate 28 MM/HR (0-20)
[2023-10-22 11:19] LABS: Anti Nuclear Antibody Screen NEGATIVE (NEGATIVE)
== END 2023-10-16 12:44 | disposition home or self-care (01) ==
LOC: HO.HHCL 12:43
PROVIDERS: Visit Provider Internal Medicine
DX: M25.50 Pain in unspecified joint (principal)
CPT/HCPCS: 36415; 85652; 86038; 86140; 86431

== ENCOUNTER 2023-11-13 11:02 | Outpatient (REF) | payer MEDICAID, SELFPAY ==
--- NOTE | ~2023-11-13 | XR_ITS ---
EXAMINATION: XR LUMBOSACRAL SPINE CLINICAL INFORMATION: Low back pain COMPARISON: None available. TECHNIQUE: Three views of the lumbosacral spine. FINDINGS: Vertebral body heights and disc space heights do appear preserved without fracture or destructive process. The SI joints appear symmetric. XR/XR lumbar spine 2-3V IMPRESSION: Unremarkable study.
[2023-11-13 13:25] LABS: MANUAL DIFF FLAG NO
[2023-11-13 13:36] LABS: Basophils Absolute Auto 0.1 X10*3/uL (0.0-0.2); Basophils Percent Auto 0.8 % (0-2); Eosinophils Absolute Auto 0.2 X10*3/uL (0.0-0.4); Eosinophils Percent Auto 2.6 % (0-4); Hematocrit 35.4 % (37.0-47.0); Hemoglobin 11.7 g/dl (12.0-16.0); Imm Gran Abs Auto 0.02 X10*3/uL (0.00-0.03); Imm Gran Pct Auto 0.3 % (0.0-0.4); Lymphocytes Absolute Auto 2.4 X10*3/uL (1.2-4.9); Lymphocytes Percent Auto 37.9 % (20-40); Mean Corpuscular HGB Conc 33.1 g/dl (31.0-35.0); Mean Corpuscular Hemoglobin 29.5 pg (27.0-33.0); Mean Corpuscular Volume 89.4 fL (80.0-98.0); Mean Platelet Volume 12.2 fL (9.4-12.3); Monocytes Absolute Auto 0.4 X10*3/uL (0.1-1.2); Monocytes Percent Auto 6.7 % (2-11); Neutrophils Absolute Auto 3.3 x10*3/uL (2.0-8.3); Neutrophils Percent Auto 51.7 % (45-73); Platelet Count 289 X10*3/uL (160-400); Red Blood Count 3.96 X10*6/uL (4.20-5.50); Red Cell Distribution Width 12.5 % (11.0-16.0); White Blood Count 6.4 X10*3/uL (4.8-10.8)
[2023-11-13 13:52] LABS: Anion Gap 10 (12-20); Blood Urea Nitrogen 15 mg/dL (9-16); Calcium 9.7 mg/dL (8.4-10.2); Carbon Dioxide 29 mmol/L (22-29); Chloride 106 mmol/L (96-108); Estimated Glomerular Filt Rate > 60; Glucose Random 94 mg/dL (60-115); Potassium 3.9 mmol/L (3.3-5.1); Sodium 141 mmol/L (135-145)
[2023-11-13 13:54] LABS: Estimated Average Glucose 117 mg/dL; Hemoglobin A1c % 5.7 % (<6.0)
[2023-11-14 07:58] LABS: HIV AB/AG Nonreactive (Nonreactive); HIV Num 1 0.05 S/CO (0.00-0.99); ~HepC Num1 0.18 S/CO (0.00-0.79); ~Hepatitis C Antibody Nonreactive (Nonreactive)
== END 2023-11-13 11:03 | disposition home or self-care (01) ==
LOC: HO.HHCL 11:02
PROVIDERS: Visit Provider Internal Medicine
DX: M54.50 Low back pain, unspecified (principal); G89.29 Other chronic pain; R42 Dizziness and giddiness
CPT/HCPCS: 36415; 72100; 80048; 83036; 85025; 86803; 87389

== ENCOUNTER 2023-12-11 13:21 | Outpatient (REF) | payer MEDICAID, SELFPAY ==
[2023-12-11 16:46] LABS: Alanine Aminotransferase 23 U/L (0-31); Albumin Level 4.3 g/dL (3.5-5.0); Alkaline Phosphatase 60 U/L (39-117); Aspartate Amino Transferase 21 U/L (5-31); Bilirubin Direct 0.2 mg/dL (0.0-0.5); Bilirubin Total 0.5 mg/dL (0.0-1.0); Cholesterol 160 mg/dL (<200); HDL Cholesterol 47 mg/dL (>40); LDL Cholesterol Calculated 82 mg/dL (<100); Triglycerides 159 mg/dL (<150)
[2023-12-11 17:02] LABS: TSH reflex Free T4 1.68 uIU/mL (0.32-4.0)
== END 2023-12-11 13:22 | disposition home or self-care (01) ==
LOC: HO.HHCL 13:21
PROVIDERS: Visit Provider Internal Medicine
DX: Z00.00 Encounter for general adult medical examination without abnormal findings (principal); R42 Dizziness and giddiness
CPT/HCPCS: 36415; 80061; 80076; 84443

== ENCOUNTER 2024-01-17 09:08 | Outpatient (REF) | payer MEDICAID, SELFPAY | END 2024-01-17 09:09 | disposition home or self-care (01) | LOC: HO.HOSX 09:08 | PROVIDERS: Visit Provider Physician Assistant | DX: Z13.89 Encounter for screening for other disorder (principal) ==

== ENCOUNTER 2024-08-01 10:59 | Emergency (ER) | payer MEDICAID, SELFPAY ==
[2024-08-01] VITALS (7 sets, daily range): BP systolic 116–169; BP diastolic 80–106; PULSE 77–86; RESP 16; TEMP 36.6–36.7; O2SAT 97–98; BMI 29.5
--- NOTE | ~2024-08-01 | CT_ITS ---
EXAMINATION CT HEAD WITHOUT CONTRAST CLINICAL INFORMATION: Questionable head strike, dizziness COMPARISON: MRI abdomen June 04, 2023 TECHNIQUE: CT of the head was performed without intravenous contrast. Reformatted axial, coronal, and sagittal images were reviewed. This CT examination was performed using dose optimization techniques as appropriate, variously including the following: *Automated exposure control *Adjustment of mA and/or kV according to patient size (this includes techniques or standardized protocols for targeted exams where dose is matched to indication/reason for exam; i.e. extremities or head) *Use of iterative reconstruction technique DLP: 727 mGy-cm FINDINGS: No intracranial hemorrhage, extra-axial fluid collection, or midline shift is identified. Wilhelm-white matter differentiation is preserved. 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 Ex vacuo dilation of the right anterior frontal horn. Basal cisterns are within normal limits. Redemonstrated 2 cm mass in the right prepontine fossa resulting in mild extrinsic mass effect upon the ni and cavernous sinus. Paranasal sinuses are clear. Mastoid air cells and middle ear cavities are clear. No acute calvarial fractures. CT/CT head/brain wo IV con IMPRESSION: 1. No acute intracranial abnormality. 2. 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 3. 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 Differential includes meningioma versus schwannoma. Electronically signed by: Esau Rivera DO 08/01/2024 03:30 PM [facility]
--- NOTE | ~2024-08-01 | CT_ITS ---
EXAMINATION: CT ABDOMEN AND PELVIS WITH CONTRAST CLINICAL INFORMATION: Abdominal pain, nausea, vomiting COMPARISON: CT abdomen/pelvis June 03, 2023 TECHNIQUE: Multiple axial images were obtained from the superior aspect of the liver through the pubic symphysis after the administration of 85 mL of intravenous Omnipaque. Images were evaluated on independent dedicated 3-D workstation and 3-D images were reconstructed with concurrent radiologist supervision and subsequently interpreted. Oral contrast was not administered. This CT examination was performed using dose optimization techniques as appropriate, variously including the following: *Automated exposure control *Adjustment of mA and/or kV according to patient size (this includes techniques or standardized protocols for targeted exams where dose is matched to indication/reason for exam; i.e. extremities or head) *Use of iterative reconstruction technique DLP: 788 mGy-cm FINDINGS: LUNG BASES: The visualized lung bases are clear. CARDIOMEDIASTINUM: The visualized heart is normal in size without pericardial effusion. No coronary artery calcification. LIVER: Homogeneous in attenuation. Normal in size. GALLBLADDER: Noninflamed. BILIARY SYSTEM: No intrahepatic or extrahepatic biliary dilation. PANCREAS: Homogeneous in attenuation. SPLEEN: Normal in size. GENITOURINARY: Bilateral kidneys demonstrate symmetric enhancement. No perinephric fluid collection. No renal calculi. No hydroureteronephrosis. ADRENAL GLANDS: Unremarkable. REPRODUCTIVE: Uterus and and bilateral adnexa are unremarkable. GASTROINTESTINAL: The visualized alimentary tract is normal in course. No evidence of obstruction. APPENDIX: The appendix is seen in its entirety and is unremarkable. PERITONEUM: Nonspecific edema within the central mesentery, unchanged since 2022. No fluid collection. No pneumoperitoneum. VASCULATURE: The abdominal aorta is normal in course and caliber. LYMPH NODES: No pathologically enlarged abdominal or pelvic lymph nodes. SOFT TISSUES/MUSCULOSKELETAL: There is no acute fracture or significant focal osseous lesion. CT/CT abdomen pelvis w IV con IMPRESSION: No acute abdominal or pelvic pathology. Fleischner guidelines were followed. Electronically signed by: Esau Rivera DO 08/01/2024 03:36 PM EST
[2024-08-01] MEDS: Ondansetron ODT 4 MG TAB.RAPDIS TRANSLINGU (11:12)
[2024-08-01 11:37] LABS: Appearance Urine Cloudy; Color Urine Yellow; Glucose Urine UA Negative (Negative); Leukocyte Esterase Urine Negative (Negative); Nitrite Urine Negative (Negative); PH >= 9.0 (5.0-9.0); Urine Blood Negative (Negative); Urine Ketones Negative (Negative); Urine Protein Trace mg/dL (Neg-Trace)
[2024-08-01 11:40] LABS: MANUAL DIFF FLAG NO
--- NOTE | 2024-08-01 11:40 | PC.NURSE ---
zeus from home c/o nausea/vomiting x last night after eating a chocolate chip cookie. denies abd pain but feels funny sensation in abdomen. denies fever/chills/diarrhea. 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 feeling more dizzy than usual - lowered herself to the ground. -headstrike, -loc. -thinners. upon ED arrival - mainly swedish speaking. wants to utilize for american sign language interpreter services. a&ox4. vss and up to date aside from being hypertensive. states she does not take medication for it. actively nauseous/multiple episodes of vomiting. medication administered per provider order. effectiveness pending. 1:1 assist to ambulate to the restroom. pt dizziness increases w/ movement. assistance needed. urine obtained/sent to lab. orthostatic VS completed and negative. labs obtained by tech. no sob/wob noted. respirations even/unlabored. plan of care ongoing.
[2024-08-01 11:41] LABS: Basophils Percent Auto 0.3 % (0-2); Eosinophils Absolute Auto 0.1 X10*3/uL (0.0-0.4); Eosinophils Percent Auto 0.7 % (0-4); Hematocrit 35.4 % (37.0-47.0); Hemoglobin 11.8 g/dl (12.0-16.0); Imm Gran Abs Auto 0.08 X10*3/uL (0.00-0.03); Imm Gran Pct Auto 0.8 % (0.0-0.4); Lymphocytes Absolute Auto 1.7 X10*3/uL (1.2-4.9); Mean Corpuscular HGB Conc 33.3 g/dl (31.0-35.0); Mean Corpuscular Hemoglobin 29.4 pg (27.0-33.0); Mean Corpuscular Volume 88.1 fL (80.0-98.0); Mean Platelet Volume 11.1 fL (9.4-12.3); Monocytes Absolute Auto 0.4 X10*3/uL (0.1-1.2); Monocytes Percent Auto 4.4 % (2-11); Neutrophils Absolute Auto 7.5 x10*3/uL (2.0-8.3); Neutrophils Percent Auto 76.8 % (45-73); Platelet Count 245 X10*3/uL (160-400); Red Blood Count 4.02 X10*6/uL (4.20-5.50); Red Cell Distribution Width 12.9 % (11.0-16.0); White Blood Count 9.8 X10*3/uL (4.8-10.8)
[2024-08-01 11:44] LABS: Amphetamine Screen Urine Not Detected (Not Detect); Barbiturates, Urine Not Detected (Not Detect); Benzodiazepines Screen Urine Not Detected (Not Detect); Buprenorphine Scr Not Detected (Not Detect); Cannabinoid Screen Urine Not Detected (Not Detect); Cocaine Screen Urine Not Detected (Not Detect); Fentanyl, urine Not Detected (Not Detect); Methadone Screen, Urine Not Detected (Not Detect); Opiate Screen Urine Not Detected (Not Detect); Oxycodone Screen Urine Not Detected (Not Detect); Phencyclidine Screen Urine Not Detected (Not Detect)
[2024-08-01 11:54] LABS: Alanine Aminotransferase 23 U/L (0-31); Albumin Level 4.5 g/dL (3.5-5.0); Alkaline Phosphatase 61 U/L (39-117); Anion Gap 15 (12-20); Aspartate Amino Transferase 29 U/L (5-31); Bilirubin Total 0.9 mg/dL (0.0-1.0); Blood Urea Nitrogen 14 mg/dL (9-16); Calcium 10.3 mg/dL (8.4-10.2); Carbon Dioxide 26 mmol/L (22-29); Chloride 107 mmol/L (96-108); Creatinine Clr Calc Pharmacy 86.8; Estimated Glomerular Filt Rate > 60; Glucose Random 119 mg/dL (60-115); Lipase 47 U/L (8-78); Magnesium 1.9 mg/dL (1.6-2.6); Potassium 4.1 mmol/L (3.3-5.1); Sodium 144 mmol/L (135-145); Total Protein 8.1 g/dL (6.5-8.0)
--- NOTE | 2024-08-01 12:01 | ED_ITS ---
HPI - Nausea/Vomiting/Diarrhea General Chief complaint: Nausea/Vomiting/Diarrhea Stated complaint: NAUSEA VOMITING Time Seen by Provider: 08/01/24 11:07 Source: patient and EMS Mode of arrival: EMS Limitations: no limitations History of Present Illness ED Provider: REKHA Shelby HPI Narrative: This is a 53-year-old female history of interstitial cystitis, hypertension, iron deficiency anemia, H pylori presenting to the emergency department with nausea, vomiting, diffuse abdominal discomfort since last night. Patient reports pain started after she ate a chocolate chip cookie, there was no marijuana and this cookie. She reports she just felt overall unwell afterwards. Today she continued to have nausea and vomiting, at 1 point she felt dizzy particularly with standing which prompted her to come in today she states after she stood up she fell due to the dizziness did not lose consciousness, no head strike. Patient not on blood thinners. He denies fevers, chills, sick contacts, blood in stool or vomit, diarrhea, chest pain, shortness of breath, headache, vision changes, dizziness or weakness. Related Data Home Medications ?Medication ?Instructions ?Recorded ?Confirmed amlodipine 5 mg tablet 5 mg PO DAILY 07/03/22 08/30/23 blood pressure test kit-large #1 ea 07/03/22 08/30/23 ferrous sulfate 325 mg (65 mg 325 mg PO TID 07/03/22 08/30/23 iron) tablet (FeroSul) fluticasone propionate 110 2 puff inhalation BID 07/03/22 08/30/23 mcg/actuation HFA aerosol inhaler (Flovent HFA) fluticasone propionate 50 1 - 2 spray intranasal DAILY PRN 07/03/22 08/30/23 mcg/actuation nasal spray,suspension ibuprofen 200 mg tablet 200 - 400 mg PO Q6H PRN headache 07/03/22 08/30/23 lurasidone 80 mg tablet (Latuda) 80 mg PO DAILY 07/03/22 08/30/23 quetiapine 400 mg tablet 400 mg PO BEDTIME 07/03/22 08/30/23 quetiapine 50 mg tablet 50 mg PO BID 07/03/22 08/30/23 vortioxetine 20 mg tablet 20 mg PO DAILY 07/03/22 08/30/23 (Trintellix) Previous Rx's ?Medication ?Instructions ?Recorded doxycycline hyclate 100 mg capsule 100 mg PO BID urethritis 5 days 08/13/23 #10 caps oxycodone-acetaminophen 5 mg-325 1 tab PO Q6H PRN pain #6 tabs 08/13/23 mg tablet (Percocet) phenazopyridine 200 mg tablet 200 mg PO Q8H PRN pain #30 tabs 08/30/23 (Pyridium) ondansetron 4 mg disintegrating 4 mg PO Q6H PRN nausea and 08/01/24 tablet vomiting #14 tabs Allergies Allergy/AdvReac Type Severity Reaction Status Date / Time Penicillins Allergy Severe RASH Verified 08/01/24 11:08 ITCHY/SWELLING facial swelling Review of Systems 2 Review of Systems: Yes all other systems are reviewed and are negative [facility] Past Medical History Attestation statement: The following information was validated with the patient. Source: old records reviewed and nursing notes reviewed Medical History Asthma H. pylori infection Chronic dyspnea Pain syndrome, chronic Iron deficiency anemia Allergic rhinitis Migraine Depression HTN (hypertension) Surgical History Hx of tubal ligation Family History Family History Father No problems noted. Mother No problems noted. Social History Social History Household Members: Significant Other Alcohol intake: current Alcohol intake frequency: holidays/special occasions only Patient Tobacco Use Status: Never used Tobacco Advance Directives: No Advance Directives Information Provided: No Do you have a plan to hurt others: No Plan Physical Exam 2 Vital Signs: Vital Signs: Last Vital Signs Temp 97.8 F 08/01/24 13:24 Pulse 83 08/01/24 13:24 Resp 16 08/01/24 13:24 BP 127/82 08/01/24 13:24 Pulse Ox 98 08/01/24 13:24 O2 Del Method Room Air 08/01/24 13:24 BMI result Body Mass Index 29.5 Patient hypertensive however vomiting when vitals were obtained Appearance: Alert.? Oriented X3.? No acute distress.? Head: Normocephalic, atraumatic, no step-offs or deformities Eyes: Pupils equal, round and reactive to light.? Neck: Normal inspection.? Neck supple.? CVS: Normal heart rate and rhythm.? Pulses normal.? Respiratory: No respiratory distress.? Breath sounds normal.? Abdomen: Soft and diffuse abdominal discomfort.? Skin: Skin warm and dry.? Normal skin color.? Normal skin turgor.? Extremities: No lower extremity edema.? No calf ttp. 5/5 strength to bilateral upper and lower extremities Neuro: Oriented X 3.? No motor deficit.? No sensory deficit. CN 2-12 intact . Normal [id number]. Ambulating with steady gait normal coordination GCS 15 NIH stroke scale 0 Course Reevaluation(s) Reevaluation #1: CBC unremarkable. There is a normocytic anemia noted at baseline. Chemistry with no acute findings needing intervention. UA negative. Urine toxicology negative. CT abdomen ordered for further evaluation of patient's symptoms. Time: 12:02 Reevaluation #2: CT abdomen and pelvis no acute abdominal or pelvic pathology. CT head with no acute intracranial abnormality. 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 No signs of acute trauma at this time. Prepontine cistern mass noted will have patient follow-up with PCP for possible neurology referral. Educated patient on diagnosis and treatment plan, answered all question, patient verbalizes understanding. At this time patient will be discharged home, advised to return with new or worsening symptoms. Educated on worrisome signs and symptoms and when to return. At this time I feel comfortable discharge home. Time: 15:42 Medications Administered Discontinued Medications Generic Name Dose Route Start Last Admin Trade Name Miriam PRN Reason Stop Dose Admin Iohexol 85 ml 08/01/24 13:08 08/01/24 13:08 Iohexol 350 Mg/Ml 75 Ml Infus..Btl IV 08/01/24 13:09 85 ml ONCE ONE Administration Ondansetron HCl 4 mg 08/01/24 11:08 08/01/24 11:12 Ondansetron Odt 4 Mg Tab.Rapdis TRANSLINGU 08/01/24 11:09 4 mg ONCE ONE Administration Medical Decision Making Medical Decision Making [facility] Narrative: 1203 53-year-old female presents for evaluation of nausea, vomiting, abdominal pain since last night. Pain started after eating a chocolate chip cookie. Physical exam diffuse abdominal discomfort. Patient hypertensive initially likely secondary to vitals being taken as patient is vomiting. NIH stroke scale 0. History and physical exam concerning for GI upset likely secondary to food versus gastroenteritis versus viral illness. Unlikely intracranial hemorrhage, stroke, posterior stroke, acute abdomen, appendicitis, cholecystitis, diverticulitis, pancreatitis. Will rule out hyper emesis induced nausea vomiting although less likely as patient denies. Plan labs, imaging, urine, viral testing and CT scan Differential Diagnosis Differential Diagnoses: The differential diagnosis associated with the presentation includes (History and physical exam concerning for GI upset likely secondary to food versus gastroenteritis versus viral illness. Unlikely intracranial hemorrhage, stroke, posterior stroke, acute abdomen, appendicitis, cholecystitis, diverticulitis, pancreatitis. Will rule out hyper emesis induced nausea vo) Admission/Observation Consideration of admission/observation: Escalation of care including admission/observation considered Lab Data MDM Lab Attestation statement: I reviewed the patient's lab results. 08/01/24 11:36 08/01/24 11:35 Labs: Lab Results 08/01/24 08/01/24 08/01/24 Range/Units 11:22 11:35 11:36 WBC 9.8 (4.8-10.8) X10*3/uL RBC 4.02 L (4.20-5.50) X10*6/uL Hgb 11.8 L (12.0-16.0) g/dl Hct 35.4 L (37.0-47.0) % MCV 88.1 (80.0-98.0) fL MCH 29.4 (27.0-33.0) pg MCHC 33.3 (31.0-35.0) g/dl RDW 12.9 (11.0-16.0) % Plt Count 245 (160-400) X10*3/uL MPV 11.1 (9.4-12.3) fL Immature Gran % (Auto) 0.8 H (0.0-0.4) % Neut % (Auto) 76.8 H (45-73) % Lymph % (Auto) 17.0 L (20-40) % Millard % (Auto) 4.4 (2-11) % Eos % (Auto) 0.7 (0-4) % Baso % (Auto) 0.3 (0-2) % Lymph # (Auto) 1.7 (1.2-4.9) X10*3/uL Millard # (Auto) 0.4 (0.1-1.2) X10*3/uL Eos # (Auto) 0.1 (0.0-0.4) X10*3/uL Baso # (Auto) 0.0 (0.0-0.2) X10*3/uL Abs Immat Gran (auto) 0.08 H (0.00-0.03) X10*3/uL Absolute Neuts (auto) 7.5 (2.0-8.3) x10*3/uL Absolute Nucleated RBC 0.000 (0.0-0.012) X10*3/uL Nucleated RBC % (auto) 0.0 (0.0-0.2) /100WBC Sodium 144 (135-145) mmol/L Potassium 4.1 (3.3-5.1) mmol/L Chloride 107 (96-108) mmol/L Carbon Dioxide 26 (22-29) mmol/L Anion Gap 15 (12-20) BUN 14 (9-16) mg/dL Creatinine 0.74 (0.5-1.4) mg/dL Estim Creat Clear Calc 86.8 Estimated GFR > 60 Random Glucose 119 H (60-115) mg/dL Calcium 10.3 H D (8.4-10.2) mg/dL Magnesium 1.9 (1.6-2.6) mg/dL Total Bilirubin 0.9 (0.0-1.0) mg/dL AST 29 (5-31) U/L ALT 23 (0-31) U/L Alkaline Phosphatase 61 (39-117) U/L Total Protein 8.1 H (6.5-8.0) g/dL Albumin 4.5 (3.5-5.0) g/dL Lipase 47 (8-78) U/L Urine Color Yellow Urine Appearance Cloudy Urine pH >= 9.0 (5.0-9.0) Ur Specific [employer] 1.020 (1.005-1.025) Urine Protein Trace (Neg-Trace) mg/dL Urine Glucose (UA) Negative (Negative) mg/dL Urine Ketones Negative (Negative) mg/dL Urine Blood Negative (Negative) Urine Nitrite Negative (Negative) Ur Leukocyte Esterase Negative (Negative) Urine Opiates Screen Not Detected (Not Detect) Ur Buprenorphine Scrn Not Detected (Not Detect) ng/mL Ur Oxycodone Screen Not Detected (Not Detect) ng/mL Urine Methadone Screen Not Detected (Not Detect) ng/mL Urine Fentanyl Screen Not Detected (Not Detect) Ur Barbiturates Screen Not Detected (Not Detect) Ur Phencyclidine Scrn Not Detected (Not Detect) Ur Amphetamines Screen Not Detected (Not Detect) U Benzodiazepines Scrn Not Detected (Not Detect) Urine Cocaine Screen Not Detected (Not Detect) U Marijuana (THC) Screen Not Detected (Not Detect) COVID-19 (IGNACIO) (Negative) COVID-19 Clin Com Influenza Type A (KIERRA) (Negative) Influenza Type B (KIERRA) (Negative) Influenza A & B Note 08/01/24 Range/Units 12:47 WBC (4.8-10.8) X10*3/uL RBC (4.20-5.50) X10*6/uL Hgb (12.0-16.0) g/dl Hct (37.0-47.0) % MCV (80.0-98.0) fL MCH (27.0-33.0) pg MCHC (31.0-35.0) g/dl RDW (11.0-16.0) % Plt Count (160-400) X10*3/uL MPV (9.4-12.3) fL Immature Gran % (Auto) (0.0-0.4) % Neut % (Auto) (45-73) % Lymph % (Auto) (20-40) % Millard % (Auto) (2-11) % Eos % (Auto) (0-4) % Baso % (Auto) (0-2) % Lymph # (Auto) (1.2-4.9) X10*3/uL Millard # (Auto) (0.1-1.2) X10*3/uL Eos # (Auto) (0.0-0.4) X10*3/uL Baso # (Auto) (0.0-0.2) X10*3/uL Abs Immat Gran (auto) (0.00-0.03) X10*3/uL Absolute Neuts (auto) (2.0-8.3) x10*3/uL Absolute Nucleated RBC (0.0-0.012) X10*3/uL Nucleated RBC % (auto) (0.0-0.2) /100WBC Sodium (135-145) mmol/L Potassium (3.3-5.1) mmol/L Chloride (96-108) mmol/L Carbon Dioxide (22-29) mmol/L Anion Gap (12-20) BUN (9-16) mg/dL Creatinine (0.5-1.4) mg/dL Estim Creat Clear Calc Estimated GFR Random Glucose (60-115) mg/dL Calcium (8.4-10.2) mg/dL Magnesium (1.6-2.6) mg/dL Total Bilirubin (0.0-1.0) mg/dL AST (5-31) U/L ALT (0-31) U/L Alkaline Phosphatase (39-117) U/L Total Protein (6.5-8.0) g/dL Albumin (3.5-5.0) g/dL Lipase (8-78) U/L Urine Color Urine Appearance Urine pH (5.0-9.0) Ur Specific [employer] (1.005-1.025) Urine Protein (Neg-Trace) mg/dL Urine Glucose (UA) (Negative) mg/dL Urine Ketones (Negative) mg/dL Urine Blood (Negative) Urine Nitrite (Negative) Ur Leukocyte Esterase (Negative) Urine Opiates Screen (Not Detect) Ur Buprenorphine Scrn (Not Detect) ng/mL Ur Oxycodone Screen (Not Detect) ng/mL Urine Methadone Screen (Not Detect) ng/mL Urine Fentanyl Screen (Not Detect) Ur Barbiturates Screen (Not Detect) Ur Phencyclidine Scrn (Not Detect) Ur Amphetamines Screen (Not Detect) U Benzodiazepines Scrn (Not Detect) Urine Cocaine Screen (Not Detect) U Marijuana (THC) Screen (Not Detect) COVID-19 (IGNACIO) Negative (Negative) COVID-19 Clin Com See Note Influenza Type A (KIERRA) Negative (Negative) Influenza Type B (KIERRA) Negative (Negative) Influenza A & B Note See Note Independent Interpretation I performed an independent interpretation of an: CT Scan Radiology Impression Discussion of test interpretation with radiology: I have reviewed the radiologist's reading. External Record Review External record reviewed: Office record, Outpatient record, Prior outpatient labs and Prior outpatient radiology Chronic Conditions Patient?s care impacted by: Other (See HPI) Social Determinants Patient?s care significantly limited by Social Determinants of Health including: Other Social Determinant of Health Critical Care Time Critical Care Time Critical Care Time: Yes Total Critical Care Time: 35 Attestation: I attest to this time spent taking care of the patient, obtaining history, physical, reviewing labs, imaging, treatment of patients condition +/- specialist/hospitalist consult Discharge Plan Discharge Clinical Impression: Abdominal pain, Nausea & vomiting, Encephalomalacia, Head mass Patient Disposition: Home, Self-Care Instructions: Acute Nausea and Vomiting (ED), Abdominal Pain (ED) Additional Instructions: Take your medications as prescribed. If you were prescribed antibiotics today, it is important that you take your medication to their entirety, do not skip any doses, do not finish them early. Follow-up with your primary care provider this week. Return to the emergency department with new or worsening symptoms. Such as fevers, chills, chest pain, shortness of breath, nausea, vomiting, dizziness, headache, vision changes, lethargy In case of emergency call 911 Your labs and urine looked good. Your CT scan also looked reassuring. Bandar has been sent to your pharmacy for nausea and vomiting Follow up with your PCP about head CT findings may need a neurology referall. CT/CT head/brain wo IV con IMPRESSION: 1. No acute intracranial abnormality. 2. 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 3. 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 Differential includes meningioma versus schwannoma. CT/CT abdomen pelvis w IV con IMPRESSION: No acute abdominal or pelvic pathology. Fleischner guidelines were followed. Prescriptions: New ondansetron 4 mg tablet,disintegrating 4 mg PO Q6H PRN (Reason: nausea and vomiting) Qty: 14 0RF No Action doxycycline hyclate 100 mg capsule 100 mg PO BID 5 Days Qty: 10 0RF oxycodone-acetaminophen [Percocet] 5-325 mg tablet 1 tab PO Q6H PRN (Reason: pain) Qty: 6 0RF Rx Instructions: Partial Fill upon patient request. quetiapine 400 mg tablet 400 mg PO BEDTIME quetiapine 50 mg tablet 50 mg PO BID amlodipine 5 mg tablet 5 mg PO DAILY Latuda 80 mg tablet 80 mg PO DAILY Trintellix 20 mg tablet 20 mg PO DAILY ibuprofen 200 mg tablet 200 - 400 mg PO Q6H PRN (Reason: headache) ferrous sulfate [FeroSul] 325 mg (65 mg iron) tablet 325 mg PO TID fluticasone propionate 50 mcg/actuation spray,suspension 1 - 2 spray intranasal DAILY PRN fluticasone propionate [Flovent HFA] 110 mcg/actuation HFA aerosol inhaler 2 puff inhalation BID (DME) blood pressure test kit-large Kit See Rx Instructions .ROUTE DAILY Qty: 1 Rx Instructions: As directed phenazopyridine [Pyridium] 200 mg tablet 200 mg PO Q8H PRN (Reason: pain) Qty: 30 3RF Referrals: [facility] [Primary Care Provider] - 2 days Print Language: Swedish
--- NOTE | 2024-08-01 12:18 | PC.NURSE ---
20gIV placed in the right AC - pt waiting to have CT completed at this time.
--- NOTE | 2024-08-01 13:04 | PC.NURSE ---
pt to CT at this time.
[2024-08-01 13:07] LABS: IDNOW Serial# 152EDE1D; Influenza A Negative (Negative); Influenza B2 Negative (Negative)
[2024-08-01 13:08] LABS: COVID-19 Test Negative (Negative); IDNOW Serial# 08D9AD1C
[2024-08-01] MEDS: iohexoL 350 MG/ML 75 ML INFUS..BTL 85 ML IV (13:08)
== END 2024-08-01 16:04 | disposition home or self-care (01) ==
PROVIDERS: Physician Assistant; Emergency Provider Emergency Medicine
DX: R11.2 Nausea with vomiting, unspecified (principal); R10.9 Unspecified abdominal pain; G93.89 Other specified disorders of brain; R22.0 Localized swelling, mass and lump, head; R42 Dizziness and giddiness; Z03.818 Encounter for observation for suspected exposure to other biological agents ruled out; I10 Essential (primary) hypertension; J45.909 Unspecified asthma, uncomplicated; D64.9 Anemia, unspecified; Z79.899 Other long term (current) drug therapy
CPT/HCPCS: 36415; 70450; 74177; 80053; 80307; 81003; 83690; 83735; 85025; 87502; 87635; 99284; Q9967

== ENCOUNTER 2025-01-19 14:03 | Outpatient (REF) | payer MEDICAID, SELFPAY ==
[2025-01-19 16:03] LABS: MANUAL DIFF FLAG NO
[2025-01-19 16:09] LABS: Basophils Absolute Auto 0.1 X10*3/uL (0.0-0.2); Basophils Percent Auto 0.8 % (0-2); Eosinophils Absolute Auto 0.9 X10*3/uL (0.0-0.4); Eosinophils Percent Auto 12.2 % (0-4); Hematocrit 33.7 % (37.0-47.0); Hemoglobin 10.9 g/dl (12.0-16.0); Imm Gran Abs Auto 0.02 X10*3/uL (0.00-0.03); Imm Gran Pct Auto 0.3 % (0.0-0.4); Lymphocytes Absolute Auto 2.9 X10*3/uL (1.2-4.9); Lymphocytes Percent Auto 39.9 % (20-40); Mean Corpuscular HGB Conc 32.3 g/dl (31.0-35.0); Mean Corpuscular Hemoglobin 28.8 pg (27.0-33.0); Mean Corpuscular Volume 89.2 fL (80.0-98.0); Mean Platelet Volume 12.2 fL (9.4-12.3); Monocytes Absolute Auto 0.5 X10*3/uL (0.1-1.2); Monocytes Percent Auto 6.2 % (2-11); Neutrophils Absolute Auto 2.9 x10*3/uL (2.0-8.3); Neutrophils Percent Auto 40.6 % (45-73); Platelet Count 270 X10*3/uL (160-400); Red Blood Count 3.78 X10*6/uL (4.20-5.50); Red Cell Distribution Width 13.3 % (11.0-16.0); White Blood Count 7.2 X10*3/uL (4.8-10.8)
[2025-01-19 16:11] LABS: Estimated Average Glucose 120 mg/dL; Hemoglobin A1C 111.0843 umol/L; Hemoglobin A1c % 5.8 % (<6.0); Total Hemoglobin (HGBA1C) 2763.3046 umol/L
[2025-01-19 16:22] LABS: Anion Gap 10 (12-20)
[2025-01-19 16:26] LABS: Alanine Aminotransferase 42 U/L (0-31); Albumin Level 4.3 g/dL (3.5-5.0); Alkaline Phosphatase 64 U/L (39-117); Bilirubin Total 0.5 mg/dL (0.0-1.0); Blood Urea Nitrogen 15 mg/dL (9-16); Calcium 9.4 mg/dL (8.4-10.2); Carbon Dioxide 28 mmol/L (22-29); Chloride 107 mmol/L (96-108); Cholesterol 164 mg/dL (<200); Estimated Glomerular Filt Rate > 60; Glucose Random 99 mg/dL (60-115); HDL Cholesterol 45 mg/dL (>40); LDL Cholesterol Calculated 88 mg/dL (<100); Potassium 4.2 mmol/L (3.3-5.1); Sodium 141 mmol/L (135-145); Total Protein 7.6 g/dL (6.5-8.0); Triglycerides 156 mg/dL (<150)
[2025-01-19 16:43] LABS: Aspartate Amino Transferase 36 U/L (5-31)
[2025-01-19 16:50] LABS: TSH reflex Free T4 1.75 uIU/mL (0.32-4.0); Vitamin D 25-OH Total 43.3 ng/mL (>30)
[2025-01-20 08:08] LABS: HIV AB/AG Nonreactive (Nonreactive); ~Hepatitis C Antibody Nonreactive (Nonreactive)
== END 2025-01-19 14:04 | disposition home or self-care (01) ==
LOC: HO.HHCL 14:03
PROVIDERS: Visit Provider Internal Medicine
DX: I10 Essential (primary) hypertension (principal); L65.9 Nonscarring hair loss, unspecified
CPT/HCPCS: 36415; 80053; 80061; 82306; 83036; 84443; 85025; 86803; 87389

== ENCOUNTER 2025-01-20 13:11 | Outpatient (REF) | payer MEDICAID, SELFPAY ==
--- OUTSIDE RECORDS SUMMARY | 2025-01-20 14:31 | XMS_ITS | Encounter Summary ---
Author Organization [employer] Address [address] [facility] [address] [place] [address] Care Team Providers Care Ointment Mill Tender Name Role Phone Hailey Smallwood MD Primary Care Provide r Reason for Referral * Consultation (Routine) - Pending Review Specialty Diagnoses / Procedures Referred By Nelly cabrera Referred To Contact Gastroenterology Diagnoses Colon cancer screening Hailey Smallwood MD [address] [place] [address] Phone: tel: fax: Referral ID Status Reason Start Date Expiration Date Visits Requested Visits Authorized [id number] Pending Review Specialty Services Required 01/19/2025 01/19/2026 1 1 * Imaging (Routine) - Authorized Specialty Diagnoses / Procedures Referred By Nelly cabrera Referred To Contact Radiology Diagnoses Encounter for screening mammogram for malignant neoplasm of breast Procedures BI Mammogram Screening Tomosynthesis Bilateral Hailey Smallwood MD [address] [place] [address] Phone: tel: fax: [facility] [address] [place] [address] Phone: tel: fax: Referral ID Status Reason Start Date Expiration Date V isits Requested Visits Authorized [id number] Authorized 01/19/2025 01/19/2026 1 1 * Consultation (Routine) - Closed Specialty Diagnoses / Procedures Referred By Contac t Referred To Contact Physical Therapy Diagnoses Chronic left-sided low back pain, unspecified whether sciatica present Hailey Smallwood MD [address] [place] [phone] Phone: tel: fax: [facility] Physical Therapy [address] [place], [place] Phone: tel: fax: Referral ID Status Reason Start Date Expiration Date V isits Requested Visits Authorized [id number] Closed Specialty Services Required 01/19/2025 01/19/2026 20 20 * Consultation (Routine) - Authorized Specialty Diagnoses / Procedures Referred By Contac t Referred To Contact Family Medicine Diagnoses Hair loss Hailey Smallwood MD [address] [place] [phone] Phone: tel: fax: Referral ID Status Reason Start Date Expiration Date Visits Requested Visits Authorized [id number] Authorized Specialty Services Required 01/19/2025 01/19/2026 1 1 Encounter Details Date Type Department Care Team (Late st Contact Info) Description 01/19/2025 1:45 PM EDT Office Visit [facility] [address] [place] [phone] Hailey Smallwood MD [address] [place] [phone] Primary hypertension (Primary Dx); Chronic left-sided low back pain, unspecified whether sciatica present; Anxiety with depression; Hair loss; Polyarthralgia; Mild intermittent asthma without complication; Meningioma (CMS/HCC); Encounter for screening mammogram for malignant neoplasm of breast; Colon cancer screening Social History Tobacco Use Types Packs/Day Years Used Date Smoking Tobacco: Never Passive Smoke Exposure: Never Smokeless Tobacco: Never Depression Answer Date Recorded Patient Health Questionnaire-9 Score 17 01/19/2025 Patient Health Questionnaire-9 Score 17 01/19/2025 Last PHQ-9: Questionnaire Data Not on file 0 01/19/2025 Housing Stability Answer Date Recorded What is your housing situation today? I have barry mcrae 01/08/[address] you li ve. Do you have problems with any of the following? Pests such as bugs, ants, or mice 01/08/2025 Food Insecurity Answer Date Recorded Within the past 12 months, y ou worried that your food would run out before you got money to buy more: Sometimes True 2024 Within the past 12 months,th e food you bought just didn't last and you didn't have enough money to get more: Sometimes True 01/08/2025 Transportation Answer Date Recorded In the past 12 months, has l ack of transportation kept you from medical appts, meetings, work or from getting things needed for daily living? No 01/08/2025 Utilities Answer Date Recorded In the past 12 months, has t he electric, gas, oil or water company threatened to shut off services in your home? No 01/08/2025 Depression Answer Date Recorded Patient Health Questionnaire-2 Score 4 01/19/2025 Internet Access Answer Date Recorded Internet Access Q1 Yes 01/08/2025 Internet Access Q2 Not on file 01/08/2025 Comments Unknown Sex and Gender Information Value Date Recorded Sex Assigned at Female 07/23/2022 10:16 AM EDT Legal Sex Female 10:16 AM EDT Gender Identity Female 07/23/2022 10:16 AM EDT Sexual Orientation Straight 07/23/2022 10 :16 AM EDT documented as of this encounter Last Filed Vital Signs Vital Sign Reading Time Taken Comments Blood Pressure 129/85 01/19/2025 1:28 PM EDT Pulse 86 01/19/2025 1:28 PM EDT Temperature 36.4 ??C (97.6 ??F) 01/19/2025 1:28 PM ED T Respiratory Rate 20 01/19/2025 1:28 PM EDT Oxygen Saturation 97% 01/19/2025 1:28 PM EDT Inhaled Oxygen Concentration - - Weight 75.9 kg (167 lb 6 oz) 01/19/2025 1:28 PM EDT Height 154.9 cm (5' 1 ) 01/19/2025 1:28 PM EDT Body Mass Index 31.63 01/19/2025 1:28 PM EDT documented in this encounter Progress Notes * Hailey Landaverde MD - 01/19/2025 1:45 PM EDT SUBJECTIVE: Nazanin Van is a 54 y.o. year old female who presents for Chronic Disease Management . Acute Concerns: Patient reports she bought a product in the [employer] store to try to her hair and since then she has been losing a lot of hair, reports this is very stressful for her and is exacerbating her anxiety and depression Patient also complains today of acute on chronic pain on her lower back left side, denies triggering activity or recent trauma Social History Social History Narrative Not on file Patient Active Problem List Diagnosis Allergic rhinitis Atypical chest pain Chronic dyspnea Depressive disorder Epigastric pain Functional abdominal pain syndrome Helicobacter pylori gastrointestinal tract infection Iron deficiency anemia due to chronic blood loss Refractory migraine Chronic right shoulder pain Postmenopausal bleeding Primary hypertension Dizziness Food insecurity Chronic pain of both knees Interstitial cystitis Colon cancer screening LINDA (obstructive sleep apnea) Moderate asthma Polyarthralgia Chronic right-sided low back pain without sciatica Fibromyalgia Hair loss Chronic rhinitis Chronic pain of right knee Chronic left-sided low back pain Anxiety with depression Meningioma (CMS/HCC) Encounter for screening mammogram for malignant neoplasm of breast No family history on file. Review of Systems Constitutional: Negative. HENT: Negative. Respiratory: Negative. Cardiovascular: Negative. Skin: Hair loss Psychiatric/Behavioral: The patient is nervous/anxious. OBJECTIVE: Vitals: 01/19/25 1328 BP: 129/85 BP Location: Left arm Patient Position: Sitting BP Cuff Size: Adult Pulse: 86 Resp: 20 Temp: 97.6 ??F (36.4 ??C) TempSrc: Oral SpO2: 97% Weight: 167 lb 6 oz (75.9 kg) Height: 5' 1 (1.549 m) Physical Exam Constitutional: Appearance: Normal appearance. Cardiovascular: Rate and Rhythm: Normal rate and regular rhythm. Pulmonary: Effort: Pulmonary effort is normal. Breath sounds: Normal breath sounds. Abdominal: General: Abdomen is flat. Palpations: Abdomen is soft. Musculoskeletal: Right lower leg: No edema. Left lower leg: No edema. Neurological: Mental Status: She is alert. Follow Up: Follow up in about 3 months (around 04/20/2025) for chronic conditions . Current Outpatient Medications on File Prior to Visit Medication Sig Dispense Refill albuterol (2.5 MG/3ML) 0.083% nebulizer solution Take 3 mL (2.5 mg) by nebulization every 6 (six) hours if needed for wheezing. 75 mL 0 albuterol (Ventolin HFA) 108 (90 Base) MCG/ACT inhaler INHALE 1-2 PUFFS BY MOUTH EVERY 4 TO 6 HOURSAS NEEDED FOR COUGH, WHEEZING, OR SHORTNESS OF BREATH 18 g 1 amLODIPine (Norvasc) 10 MG tablet TAKE 1 TABLET BY MOUTH EVERY MORNING 90 tablet 0 vkicapi-tkuuabwgpamet-cikugbjh (Excedrin Migraine) 250-250-65 MG tablet Take 1-2 tablets every 6-8 hours as needed for headache 90 tablet 1 Blood Pressure Monitoring (Blood Pressure Cuff) misc 1 each Once daily. 1 each 0 Blood Pressure Monitoring (Blood Pressure Cuff) misc 1 each Once daily. 1 each 0 Blood Pressure Monitoring (Omron 3 Series BP Monitor) device USE TO CHECK BLOOD PRESSURE DAILY clonazePAM (KlonoPIN) 1 MG tablet Take 1 mg by mouth if needed in the morning and at bedtime. Diclofenac Sodium 1 % gel APPLY TO THE AFFECTED AREA(S) 2 GRAMS FOUR TIMES DAILY dicyclomine (Bentyl) 20 MG tablet TAKE 1 TABLET BY MOUTH FOUR TIMES DAILY NEEDED 60 tablet 3 ferrous gluconate (Fergon) 324 (38 Fe) MG tablet TAKE 1 TABLET BY MOUTH EVERY OTHER DAY 45 tablet 0 Flovent HFA 110 MCG/ACT inhaler INHALE 2 PUFFS BY MOUTH TWICE DAILY. RINSE MOUTH AFTER USING. fluticasone (Flonase) 50 MCG/ACT nasal spray INSTILL 1-2 SPRAYS IN EACH NOSTRIL ONCE DAILY NEEDED 48 g 1 gabapentin (Neurontin) 400 MG capsule Take 1 capsule (400 mg) by mouth 3 times daily. 90 capsule 11 haloperidol (Haldol) 5 MG tablet Take 5 mg by mouth 2 times daily. lidocaine (Lidoderm) 5 % patch APPLY 1 PATCH TOPICALLY TO SKIN, LEAVE ON FOR 12 HOURS AND OFF FOR 12 HOURS DIRECTED FOR PAIN 30 patch 1 naproxen (Naprosyn) 500 MG tablet Take 1 tablet (500 mg) by mouth with breakfast and with evening meal. 60 tablet 0 QUEtiapine (SEROquel) 400 MG tablet Take 400 mg by mouth at bedtime. QUEtiapine (SEROquel) 50 MG tablet Take 50 mg by mouth 2 times daily. Vortioxetine HBr (Trintellix) 20 MG tablet Take 1 tablet by mouth at bed time. [DISCONTINUED] acetaminophen (Tylenol 8 Hour) 650 MG ER tablet TAKE 1 TABLET BY MOUTH EVERY 8 HOURSAS NEEDED FOR MILD PAIN. DO NOT BREAK, CRUSH, DISSOLVE OR CHEW 30 tablet 0 No current facility-administered medications on file prior to visit. Problem List Items Addressed This Visit Primary hypertension - Primary Maintenance: BMP: Ordered Lipid Panel: Ordered ASCVD Risk: Calculate pending updated labs EKG: Obtain baseline at f/u - Aerobic exercise to reduce BP. Initial goal of 30 min walk 3-5x/week. Increase as tolerated. - low-sodium diet (goal: <2g/day) and heart healthy diet such as DASH to reduce BP and prevent ASCVD. - Home BP monitoring 1-2 x day with goal of <140/90. - Seek immediate medical attention for chest pain, palpitations, SOB, syncope, or sudden changes inmental status. - Do not change or discontinue current prescriptions without first consulting health care provider Relevant Orders CBC auto differential Comprehensive Metabolic Panel Hemoglobin A1c HIV-1/2 Antigen and Antibodies, Fourth Generation, with Reflexes Hepatitis C Antibody with Reflex to HCV, RNA, Quantitative, Real-Time PCR Lipid Panel, Standard Vitamin D, 25-Hydroxy, Total, Immunoassay Chronic left-sided low back pain Apply heat on affected area Acetaminophen as needed Flexeril 10 mg every 8 hours patient is aware of side effects somnolence Lidocaine patch Physical therapy referral Relevant Medications cyclobenzaprine (Flexeril) 10 MG tablet acetaminophen (Tylenol 8 Hour) 650 MG ER tablet lidocaine (Lidoderm) 5 % patch Other Relevant Orders Referral to Physical Therapy Anxiety with depression Continue to follow-up with psychiatry and therapist Hair loss TSH will be checked with labs I will refer patient to dermatology Relevant Orders Referral to [facility] Derm Skin Adult TSH with Reflex to Free T4 Polyarthralgia Relevant Medications acetaminophen (Tylenol 8 Hour) 650 MG ER tablet Meningioma (CMS/HCC) Continue to follow-up with neurology Encounter for screening mammogram for malignant neoplasm of breast Relevant Orders BI Mammogram Screening Tomosynthesis Bilateral Colon cancer screening Referral done today Relevant Orders Referral to Gastroenterology Other Visit Diagnoses Mild intermittent asthma without complication documented in this encounter Miscellaneous Notes * Assessment & Plan Note - Hailey Landaverde MD - 01/19/2025 2:47 PM EDT Associated Problem(s): Hair loss TSH will be checked with labs I will refer patient to dermatology * Assessment & Plan Note - Hailey Landaverde MD - 01/19/2025 2:46 PM EDT Associated Problem(s): Colon cancer screening Referral done today * Assessment & Plan Note - Hailey Landaverde MD - 01/19/2025 2:46 PM EDT Associated Problem(s): Chronic left-sided low back pain Apply heat on affected area Acetaminophen as needed Flexeril 10 mg every 8 hours patient is aware of side effects somnolence Lidocaine patch Physical therapy referral * Assessment & Plan Note - Hailey Landaverde MD - 01/19/2025 2:46 PM EDT Associated Problem(s): Anxiety with depression Continue to follow-up with psychiatry and therapist * Assessment & Plan Note - Hailey Landaverde MD - 01/19/2025 2:45 PM EDT Associated Problem(s): Primary hypertension Maintenance: BMP: Ordered Lipid Panel: Ordered ASCVD Risk: Calculate pending updated labs EKG: Obtain baseline at f/u - Aerobic exercise to reduce BP. Initial goal of 30 min walk 3-5x/week. Increase as tolerated. - low-sodium diet (goal: <2g/day) and heart healthy diet such as DASH to reduce BP and prevent ASCVD. - Home BP monitoring 1-2 x day with goal of <140/90. - Seek immediate medical attention for chest pain, palpitations, SOB, syncope, or sudden changes inmental status. - Do not change or discontinue current prescriptions without first consulting health care provider * Assessment & Plan Note - Hailey Landaverde MD - 01/19/2025 2:45 PM EDT Associated Problem(s): Meningioma (CMS/HCC) Continue to follow-up with neurology documented in this encounter Plan of Treatment Upcoming Encounters Date Type Department Care Team (Late st Contact Info) Description 04/20/2025 1:45 PM EDT Office Visit [facility] [address] [place] [phone] Hailey Smallwood MD [address] [place] [address] Scheduled Orders Name Type Priority Associated Diagnoses Orde r Schedule BI Mammogram Screening Tomosynthesis Bilateral Imaging Routine Encounter for screening mammogram for malignant neoplasm of breast Expected: 01/19/2025, Expires: 03/21/2026 Scheduled Referrals Name Type Priority Associated Diagnoses Order Schedule Referral to [facility] Derm Skin Adult Outpatient Referral Routine Hair loss Expected: 01/19/2025 (Approximate), Expires: 01/19/2026 Referral to Physical Therapy Outpatient Referral Routine Chronic left-sided low back pain, unspecified whether sciatica present Expected: 01/19/2025 (Approximate), Expires: 01/19/2026 Referral to Gastroenterology Outpatient Referral Routine Colon cancer screening Expected: 01/19/2025 (Approximate), Expires: 01/19/2026 documented as of this encounter Procedures Procedure Name Priority Date/Time Associated Diagnosis Comments VITAMIN D,25-OH,TOTAL,IA Routine 01/19/2025 2:05 PM EDT Primary hypertension TSH W/REFLEX TO FT4 Routine 01/19/2025 2 :05 PM EDT Hair loss CBC WITH AUTO DIFFERENTIAL Routine 01/19/2025 2:05 PM EDT Primary hypertension HEPATITIS C AB W/REFL TO HCV RNA, QN, PCR Routine 01/19/2025 2:05 PM EDT Primary hypertension HIV 1/2 ANTIGEN/ANTIBODY, FOURTH GENERATION W/RFL Routine 01/19/2025 2:05 PM EDT Primary hypertension HEMOGLOBIN A1C Routine 01/19/2025 2:05 PM EDT Primary hypertension LIPID PANEL, STANDARD Routine 01/19/2025 2:05 PM EDT Primary hypertension COMPREHENSIVE METABOLIC PANEL Routine 01/19/2025 2:05 PM EDT Primary hypertension documented in this encounter Results * TSH with Reflex to Free T4 (01/19/2025 2:05 PM EDT) TSH reflex Free T4 1.75 0.32 - 4.0 uIU/mL [facility] Blood Venous blood specimen / Unknown 01/19/2025 2:05 PM EDT 01/19/2025 3:59 PM EDT us Hailey Landaverde MD LAB BLOOD ORDERABLES Final Result [facility] [address] [place] [phone] * Vitamin D, 25-Hydroxy, Total, Immunoassay (01/19/2025 2:05 PM EDT) Vitamin D 25-OH Total 43.3 >30 ng/mL [facility] Comment: Health Based Reference Values*< 20 ??ng/mL ??Dthvdnikb78-40 ng/mL ??Insufficient> 30 ??ng/mL ??Sufficient*Veronica DAVIS. N Engl J Med. 2007;357:266-280There is no well-established upper level of normal vitamin Dlevels. Some laboratories use 50 ng/mL as an upper limit ofnormal. However, toxicity is patient-dependent and may occurat any level. Careful correlation with the patient'spresentation is necessary and, if there is concern forvitamin D toxicity, treatment should be consideredirrespective of the serum level.Care must be taken in interpreting Vitamin D results fromdifferent laboratories and methodologies. ??Published datademonstrated that results from patients undergoinghemodialysis may show a negative bias when tested withvarious automated 25-OH vitamin D assays when compared toLC- MS/MS.When testing samples from patients whose predominant form ofVitamin D is Vitamin D2, such as patients receiving VitaminD2 supplementation, results that are subtherapeutic shouldbe confirmed with another method such as LC-MS/MS. Blood Venous blood specimen / Unknown 01/19/2025 2:05 PM EDT 01/19/2025 3:59 PM EDT us Hailey Landaverde MD LAB BLOOD ORDERABLES Final Result [facility] [address] [place] [phone] * (ABNORMAL) Lipid Panel, Standard (01/19/2025 2:05 PM EDT) Triglycerides 156(H) <150 mg/dL [facility] Comment:Desirable Triglyceri de: less than 150 mg/dLBorderline High Triglyceride 150-199 mg/dLHigh Triglyceride: 200-499 mg/dLVery High Triglyceride: greater than or equal to 5OO mg/dL Cholesterol 164 <200 mg/dL [facility] Comment:Desirable Cholestero l: less than 200 mg/dLBorderline High Cholesterol: 200-239 mg/dLHigh Cholesterol: greater than 239 mg/dL LDL Cholesterol Calculated 88 <100 mg/dL [facility] Comment:Desirable LDL: less than 100 mg/dLNear Optimal/Above Optimal LDL: 110- 129 mg/dLBorderline High LDL: 130-159 mg/dLHigh LDL: 160-189 mg/dLVery High LDL: greater than or equal to 190 mg/dL HDL Cholesterol 45 >40 mg/dL [facility] Comment:Desirable HDL: great er than 40 mg/dL Note: This HDL assay may give artificially low results in patients with liver disease. Blood Venous blood specimen / Unknown 01/19/2025 2:05 PM EDT 01/19/2025 3:59 PM EDT Hailey Landaverde MD LAB BLOOD ORDERABLES Final Result Performing Organization Address [facility]/ZIP Co de Phone Number [facility] [address] [place] [phone] * Hepatitis C Antibody with Reflex to HCV, RNA, Quantitative, Real-Time PCR (01/19/2025 2:05 PM EDT) Hepatitis C Antibody Nonreactive Nonreactive [facility] Comment:Antibodies to HCV no t detected; does not exclude early acuteHCV infection. Blood Venous blood specimen / Unknown 01/19/2025 2:05 PM EDT 01/19/2025 3:59 PM EDT us Hailey Landaverde MD LAB BLOOD ORDERABLES Final Result Performing Organization Address [facility] Co de Phone Number [facility] [address] [place] [phone] * HIV-1/2 Antigen and Antibodies, Fourth Generation, with Reflexes (01/19/2025 2:05 PM EDT) HIV AB/AG Nonreactive Nonreactive [facility] Comment:HIV-1 p24 Ag and/or HIV-1/HIV-2 Ab not detected.A test result that is nonreactive does not exclude thepossibility of exposure to or infection with HIV-1 and/orHIV-2. Nonreactive results in this assay for individualswith prior exposure to HIV-1 and/or HIV-2 may be due toantigen and antibody levels that are below the limit ofdetection of this assay.The [employer] [employer] HIV Ag/Ab Combo assay result andsupplemental assay results should be interpreted inconjunction with the patient's clinical presentation,history and other laboratory results. If the results areinconsistent with clinical evidence, additional testing issuggested to confirm the result. Blood Venous blood specimen / Unknown 01/19/2025 2:05 PM EDT 01/19/2025 3:59 PM EDT us Hailey Landaverde MD LAB BLOOD ORDERABLES Final Result Performing Organization Address [facility] Co de Phone Number [facility] [address] [place] [phone] * Hemoglobin A1c (01/19/2025 2:05 PM EDT) Hemoglobin A1c 5.8 <6.0 % [facility] Comment:Hemoglobin A1C Refer ence Range Adults: 4.8 - 6.0 % Non diabetic: < 6.0 % Goal: < 7.0 %Additional Action Suggested: > 8.0 %Note: Hemoglobin A1c results are invalid for patients with abnormal amounts of HbF. Blood transfusions may impact the HbA1c concentration in the patient sample. Estimated Average Glucose 120 mg/dL [facility] Comment:eAG = Estimated ave rage glucose which is %A1C expressed asaverage glucose, using the formula of the [id number] Glucose study (ADAG), Diabetes Care, Vol.31,#8,Apr. 2007 Blood Venous blood specimen / Unknown 01/19/2025 2:05 PM EDT 01/19/2025 3:59 PM EDT us Hailey Landaverde MD LAB BLOOD ORDERABLES Final Result Performing Organization Address [facility] Co de Phone Number [facility] [address] [place] [phone] * (ABNORMAL) Comprehensive Metabolic Panel (01/19/2025 2:05 PM EDT) Sodium 141 135 - 145 mmol/L [facility] Potassium 4.2 3.3 - 5.1 mmol/L [facility] Chloride 107 96 - 108 mmol/L [facility] Carbon Dioxide 28 22 - 29 mmol/L [facility] Anion Gap 10(L) 12 - 20 [facility] Urea Nitrogen (BUN) 15 9 - 16 mg/dL [facility] Creatinine, Serum 0.62 0.5 - 1.4 mg/dL [facility] Estimated Glomerular Filt Rate >60 [facility] Comment:Chronic Kidney Disea se: Estimated GFR < 60 mL/min/1.47g0Korxtn Kidney Disease: Estimated GFR < 15 mL/min/1.73m2 Glucose 99 60 - 115 mg/dL [facility] Calcium 9.4 8.4 - 10.2 mg/dL [facility] Bilirubin, Total 0.5 0.0 - 1.0 mg/dL [facility] Aspartate Amino Transferase 36(H) 5 - 31 U/L [facility] Alanine Aminotransferase 42(H) 0 - 31 U/L [facility] Total Protein 7.6 6.5 - 8.0 g/dL [facility] Albumin Level 4.3 3.5 - 5.0 g/dL [facility] Alkaline Phosphatase 64 39 - 117 U/L [facility] Blood Venous blood specimen / Unknown 01/19/2025 2:05 PM EDT 01/19/2025 3:59 PM EDT us Hailey Landaverde MD LAB BLOOD ORDERABLES Final Result [facility] [address] [place] [phone] * (ABNORMAL) CBC auto differential (01/19/2025 2:05 PM EDT) Pathologist [facility] White Blood Count 7.2 4.8 - 10.8 X10*3/uL [facility] Red Blood Count 3.78(L) 4.20 - 5.50 X10*6/uL [facility] Hemoglobin 10.9(L) 12.0 - 16.0 g/dl [facility] Hematocrit 33.7(L) 37.0 - 47.0 % [facility] Mean Corpuscular Volume 89.2 80.0 - 98.0 fL [facility] Mean Corpuscular Hemoglobin 28.8 27.0 - 33.0 pg [facility] Mean Corpuscular HGB Conc 32.3 31.0 - 35.0 g/dl [facility] Red Cell Distribution Width 13.3 11.0 - 16.0 % [facility] Platelet Count 270 160 - 400 X10*3/uL [facility] Mean Platelet Volume 12.2 9.4 - 12.3 fL [facility] Neutrophils Percent Auto 40.6(L) 45 - 73 % [facility] Imm Gran Pct Auto 0.3 0.0 - 0.4 % [facility] Lymphocytes Percent Auto 39.9 20 - 40 % [facility] Monocytes Percent Auto 6.2 2 - 11 % [facility] Eosinophils Percent Auto 12.2(H) 0 - 4 % [facility] Basophils Percent Auto 0.8 0 - 2 % [facility] NRBC Pct Auto 0.0 0.0 - 0.2 /100WBC [facility] Neutrophils Absolute Auto 2.9 2.0 - 8.3 x10*3/uL [facility] Imm Gran Abs Auto 0.02 0.00 - 0.03 X10*3/uL [facility] Lymphocytes Absolute Auto 2.9 1.2 - 4.9 X10*3/uL [facility] Monocytes Absolute Auto 0.5 0.1 - 1.2 X10*3/uL [facility] Eosinophils Absolute Auto 0.9(H) 0.0 - 0.4 X10*3/uL [facility] Basophils Absolute Auto 0.1 0.0 - 0.2 X10*3/uL [facility] NRBC Abs Auto 0.000 0.0 - 0.012 X10*3/uL [facility] Blood Venous blood specimen / Unknown 01/19/2025 2:05 PM EDT 01/19/2025 3:59 PM EDT Hailey Landaverde MD LAB BLOOD ORDERABLES Final Result Performing Organization Address City/State/[facility] Co de Phone Number [facility] [address] [place] [address] [phone] documented in this encounter Visit Diagnoses Diagnosis Primary hypertension- Primary Unspecified essential hypertension Chronic left-sided low back pain, unspecified whether sciatica present Anxiety with depression Hair loss Unspecified alopecia Polyarthralgia Pain in joint, multiple sites Mild intermittent asthma without complication Meningioma (CMS/HCC) Benign neoplasm of cerebral meninges Encounter for screening mammogram for malignant neoplasm of breast Colon cancer screening Special screening for malignant neoplasms, colon documented in this encounter Additional Health Concerns Assessment Noted Time PHQ-9 Depression Total Score: 17 025 1:30 PM EDT documented as of this encounter Care Teams Ointment Mill Tender Relationship Specialty Start Date End Date Hailey Smallwood MD [address] [place] [id number] PCP - General Internal Medicine 05/07/23 documented as of this encounter
--- OUTSIDE RECORDS SUMMARY | 2025-01-20 14:31 | XMS_ITS | Encounter Summary ---
Author Organization [employer] Address [address] [place] [address] Care Team Providers Care Code Machine Operator Name Role Phone Hailey Smallwood MD Primary Care Provide r Encounter Details Date Type Department Care Team (Latest Contact Info) Description 01/19/2025 Travel Social History Tobacco Use Types Packs/Day Years [...] AM EDT documented as of this encounter Plan of Treatment Upcoming Encounters Date Type Department Care Team (Late st Contact Info) Description 04/20/2025 1:45 PM EDT Office Visit [facility] [address] [place] [address] Hailey Smallwood MD [address] [place] [address] documented as of this encounter Visit Diagnoses Not on filedocumented in this encounter Additional Health Concerns Assessment Noted Time PHQ-9 Depression Total Score: 17 025 1:30 PM EDT documented as of this encounter Care Teams Code Machine Operator Relationship Specialty Start Date End Date Hailey Smallwood MD [address] [place] [phone] PCP - General Internal Medicine 05/07/23 documented as of this encounter
--- OUTSIDE RECORDS SUMMARY | 2025-01-20 14:31 | XMS_ITS | Encounter Summary ---
Author Organization [employer] Address [address] [place] [address] Care Team Providers Care Sample Taker Operator Name Role Phone Hailey Smallwood MD Primary Care Provide r Reason for Visit * Reason Onset Date Comments Results 01/20/2025 Encounter Details Date Type Department Care Team ([facility] st Contact Info) Description 01/20/2025 Telephone [facility] [address] [place] [address] Hailey Smallwood MD [address] [place] [address] Results Social History Tobacco Use Types Packs/Day Years [...] AM EDT documented as of this encounter Miscellaneous Notes * Telephone Encounter - Evangelina Decker RN - 01/20/2025 10:42 AM EDT TC placed patient [phone] regarding below message. RN informed patient of her lab results. RN informed patient that her liver enzymes are elevated. RN educated patient on a healthy diet and the importance of exercise. RN also informed patient of her anemia and the PCP ordered additional labs to be obtained. Pt informed RN she is not taking Iron supplements. RN advised patient that her PCP with F/U with her at her next scheduled appt 04/20/25. Pt verbalized understanding. Pt to F/U PRN. ----- Message from Hailey Landaverde MD sent at 01/20/2025 10:05 AM EDT ----- Please let patient know I reviewed her labs her liver enzymes are mildly elevated possibly fatty liver so I do recommend healthy diet and exercise and I will continue to monitor also she does have anemia unguinal order labs for anemia workup and after this we will see next steps for the management thank you documented in this encounter Plan of Treatment Upcoming Encounters Date Type Department Care Team ([facility] st Contact Info) Description 04/20/2025 1:45 PM EDT Office Visit [facility] [address] [place] [address] Hailey Smallwood MD [address] [place] [address] documented as of this encounter Visit Diagnoses Not on filedocumented in this encounter Additional Health Concerns Assessment Noted Time PHQ-9 Depression Total Score: 17 01/19/ 025 1:30 PM EDT documented as of this encounter Care Teams Sample Taker Operator Relationship Specialty Start Date End Date Hailey Smallwood MD [address] [place] [address] PCP - General Internal Medicine 05/07/23 documented as of this encounter
--- OUTSIDE RECORDS SUMMARY | 2025-01-20 14:31 | XMS_ITS | Encounter Summary ---
Author Organization [employer] Address [address] [place] [address] Care Team Providers Care Pc Maintenance Technician Name Role Phone Hailey Smallwood MD Primary Care Provide r Encounter Details Date Type Department Care Team (Late st Contact Info) Description 01/20/2025 Orders Only [facility] [address] [place] [address] Hailey Smallwood MD [address] [place] [address] Anemia, unspecified type (Primary Dx) Social History Tobacco Use Types Packs/Day Years [...] Description 04/20/2025 1:45 PM EDT Office Visit [facility] [address] [place] [phone] Hailey Smallwood MD [address] [place] [phone] Scheduled Orders Name Type Priority Associated Diagnoses Orde r Schedule CBC auto differential Lab Routine Anemia, unspecified type Expected: 01/20/2025 (Approximate), Expires: 01/20/2026 Iron And Total Iron Binding Capacity Lab Routine Anemia, unspecified type Expected: 01/20/2025, Expires: 01/20/2026 Ferritin Lab Routine Anemia, unspecified type Expected: 01/20/2025, Expires: 01/20/2026 Vitamin B12 (Cobalamin) and Folate Panel, Serum Lab Routine Anemia, unspecified type Expected: 01/20/2025, Expires: 01/20/2026 documented as of this encounter Visit Diagnoses Diagnosis Anemia, unspecified type- Primary documented in this encounter Additional Health Concerns Assessment Noted Time PHQ-9 Depression Total Score: 17 025 1:30 PM EDT documented as of this encounter Care Teams Pc Maintenance Technician Relationship Specialty Start Date End Date Hailey Smallwood MD [address] [place] [phone] PCP - General Internal Medicine 05/07/23 documented as of this encounter
--- OUTSIDE RECORDS SUMMARY | 2025-01-20 14:31 | XMS_ITS | Clinical Summary ---
Author Organization [employer] Address [address] [facility] [address] [place] [address] Care Team Providers Care Licensed Therapist Name Role Phone Hailey Smallwood MD Primary Care Provide r Allergies Active Allergy Reactions Criticality Noted Date Comments Penicillins Swelling 11/10/2010 Other reaction(s): unspecified Medications aspirin-acetami nophen-caffeine (Excedrin Migraine) 250-250-65 MG tabletIndicatio ns:Chronic migraine without aura without status migrainosus, not intractable Take 1-2 tablets every 6-8 hours as needed for headache 90 tablet 1 Active naproxen (Naprosyn) 500 MG tabletIndicatio ns:Chronic right shoulder pain Take 1 tablet (500 mg) by mouth with breakfast and with evening meal. 60 tablet Active Blood Pressure Monitoring (Omron 3 Series BP Monitor) device USE TO CHECK BLOOD PRESSURE DAILY Active Vortioxetine HBr (Trintellix) 20 MG tablet Take 1 tablet by mouth at bed time. Active QUEtiapine (SEROquel) 400 MG tablet Take 400 mg by mouth at bedtime. Active QUEtiapine (SEROquel) 50 MG tablet Take 50 mg by mouth 2 times daily. Active haloperidol (Haldol) 5 MG tablet Take 5 mg by mouth 2 times daily. Active Flovent HFA 110 MCG/ACT inhaler INHALE 2 PUFFS BY MOUTH TWICE DAILY. RINSE MOUTH AFTER USING. Active Diclofenac Sodium 1 % gel APPLY TO THE AFFECTED AREA(S) 2 GRAMS FOUR TIMES DAILY Active clonazePAM (KlonoPIN) 1 MG tablet Take 1 mg by mouth if needed in the morning and at bedtime. 023 Active fluticasone (Flonase) 50 MCG/ACT nasal sprayIndication s:Seasonal allergic rhinitis, unspecified trigger INSTILL 1-2 SPRAYS IN EACH NOSTRIL ONCE DAILY NEEDED 48 g 1 023 Active lidocaine (Lidoderm) 5 % patchIndication s:Atypical chest pain APPLY 1 PATCH TOPICALLY TO SKIN, LEAVE ON FOR 12 HOURS AND OFF FOR 12 HOURS DIRECTED FOR PAIN 30 patch 1 023 Active dicyclomine (Bentyl) 20 MG tabletIndicatio ns:Unspecified abdominal pain TAKE 1 TABLET BY MOUTH FOUR TIMES DAILY NEEDED 60 tablet 3 023 Active gabapentin (Neurontin) 400 MG capsuleIndicati ons:Fibromyalgi a Take 1 capsule (400 mg) by mouth 3 times daily. 90 capsule 11 024 Active Blood Pressure Monitoring (Blood Pressure Cuff) miscIndications :Primary hypertension 1 each Once daily. 1 each 024 Active Blood Pressure Monitoring (Blood Pressure Cuff) miscIndications :Primary hypertension 1 each Once daily. 1 each 024 Active amLODIPine (Norvasc) 10 MG tabletIndicatio ns:Primary hypertension TAKE 1 TABLET BY MOUTH EVERY MORNING 90 tablet 025 Active ferrous gluconate (Fergon) 324 (38 Fe) MG tabletIndicatio ns:Iron deficiency anemia due to chronic blood loss TAKE 1 TABLET BY MOUTH EVERY OTHER DAY 45 tablet 025 Active albuterol (Ventolin HFA) 108 (90 Base) MCG/ACT inhalerIndicati ons:Mild intermittent asthma without complication INHALE 1-2 PUFFS BY MOUTH EVERY 4 TO 6 HOURS NEEDED FOR COUGH, WHEEZING, OR SHORTNESS OF BREATH 18 g 1 025 Active albuterol (2.5 MG/3ML) 0.083% nebulizer solution Take 3 mL (2.5 mg) by nebulization every 6 (six) hours if needed for wheezing. 75 mL 025 2025 Active cyclobenzaprine (Flexeril) 10 MG tabletIndicatio ns:Chronic left-sided low back pain, unspecified whether sciatica present Take 0.5 tablets (5 mg) by mouth 3 times daily for 10 days. 15 tablet 025 2024 Active acetaminophen (Tylenol 8 Hour) 650 MG ER tabletIndicatio ns:Chronic left-sided low back pain, unspecified whether sciatica present,Polyart hralgia Take 2 tablets (1,300 mg) by mouth every 8 (eight) hours if needed for mild pain. Do not crush, chew, or split. 30 tablet 025 Active lidocaine (Lidoderm) 5 % patchIndication s:Chronic left-sided low back pain, unspecified whether sciatica present Apply 1 patch topically Once per day. Remove & discard patch within 12 hours or as directed by MD. 30 patch 1 025 Active acetaminophen (Tylenol 8 Hour) 650 MG ER tabletIndicatio ns:Polyarthralg ia TAKE 1 TABLET BY MOUTH EVERY 8 HOURS NEEDED FOR MILD PAIN. DO NOT BREAK, CRUSH, DISSOLVE OR CHEW 30 tablet 024 2024 Discontinued(R eorder (will not trigger notification to Pharmacy)) Active Problems Problem Noted Date Diagnosed Date Chronic left-sided low back pain 01/19/2025 Assessment & Plan (01/19/2025 2:46 PM EDT): Apply heat on affected area Acetaminophen as needed Flexeril 10 mg every 8 hours patient is aware of side effects somnolence Lidocaine patch Physical therapy referral Anxiety with depression 01/19/2025 Assessment & Plan (01/19/2025 2:46 PM EDT): Continue to follow-up with psychiatry and therapist Meningioma 01/19/2025 Assessment & Plan (01/19/2025 2:45 PM EDT): Continue to follow-up with neurology Encounter for screening mamm ogram for malignant neoplasm of breast 01/19/2025 Chronic rhinitis 12/10/2023 Chronic pain of right knee 12/10/2023 Chronic right-sided low back pain without sciati ca 11/12/2023 Fibromyalgia 11/12/2023 Assessment & Plan (12/10/2023 4:41 PM EDT): Patient was educated about multidisciplinary approach for her condition, it was advise cardiovascular exercise, maintain hydration, treat anxiety/depression and take medications as directed Assessment & Plan (11/15/2023 6:23 PM EST): Patient was educated about multidisciplinary approach for her condition, it was advise cardiovascular exercise, maintain hydration, treat anxiety/depression and take medications as directed Hair loss 11/12/2023 Assessment & Plan (01/19/2025 2:47 PM EDT): TSH will be checked with labs I will refer patient to dermatology Chronic pain of both knees 10/14/2023 Interstitial cystitis 10/14/2023 Assessment & Plan (10/14/2023 4:52 PM EST): Continue to follow with urology Colon cancer screening 10/14/2023 Assessment & Plan (01/19/2025 2:46 PM EDT): Referral done today LINDA (obstructive sleep apnea) 10/14/2023 Assessment & Plan (10/14/2023 4:51 PM EST): Continue to use her CPAP every night Moderate asthma 10/14/2023 Assessment & Plan (10/14/2023 4:51 PM EST): Patient educated to void triggers C/w same medication regimen Polyarthralgia 10/14/2023 Dizziness 05/02/2023 Overview (05/02/2023): Pt was seen at [facility] ED about 2 weeks ago on 02/19/23 for same complaint 52-year-old female with negative orthostatics, chronic history of the dizziness that she describes and non focal. No evidence to suggest cardiac ischemia. Urinalysis appears to be dirty with numerous squamous epithelium. I have reviewed all investigations, and then I was informed by nursing staff that patient eloped. Pt reports she left ED b/c she did not want to wait ?? Dizziness has continued. Pt reports she does not drink much water, Drinks mostly coffee and soda. Taking Amlodipine 5mg daily, BP is still elevated ?? Hx of CT of brain 04/24/2019 showing Stable chronic changes including gliosis within the right frontal lobe Assessment & Plan (05/02/2023 4:22 PM EDT): Continue increased H2O intake Dizziness not assoc with hypotension Most likely not vertigo Order MRI Notify results, if normal, consider vestibular rehab F/u 3 month or sooner PRN with new PCP Food insecurity 05/02/2023 Overview (05/02/2023): Notify [facility] clinical managers High priority concern for food F/u PRN Primary hypertension 03/26/2023 Assessment & Plan (01/19/2025 2:45 PM EDT): Maintenance: BMP: Ordered Lipid Panel: Ordered ASCVD [...] pain, palpitations, SOB, syncope, or sudden changes in mental status. - Do not change or discontinue current prescriptions without first consulting health care provider Assessment & Plan (10/14/2023 4:52 PM EST): - Aerobic exercise to reduce BP. Initial goal of 30 min walk 3-5x/week. Increase as tolerated. - low-sodium diet (goal: <2g/day) and heart healthy diet such as DASH to reduce BP and prevent ASCVD. - Home BP monitoring 1-2 x day with goal of <140/90. - Seek immediate medical attention for chest pain, palpitations, SOB, syncope, or sudden changes in mental status. - Do not change or discontinue current prescriptions without first consulting health care provider Assessment & Plan (03/26/2023 8:25 PM EDT): BP elevated today 146/91 Will increase amlodipine to 10 mg daily Monitor for sx of hypotension Increase water intake, and limit soda Pt agreed w/ plan Educated pt to return to ED for red flags: worst CALLAHAN ever, unilateral weakness, facial droop, syncope, chest pain, SOB If she goes to ED, it is important to stay for eval and discharge Pt agreed Followup 2 weeks for RN BP check Chronic right shoulder pain 01/16/2023 Postmenopausal bleeding 01/16/2023 Epigastric pain 09/13/2022 Refractory migraine 09/13/2022 Atypical chest pain 02/20/2022 Chronic dyspnea 10/01/2021 Iron deficiency anemia due to chronic blood loss 11/14/2018 Functional abdominal pain syndrome 05/28/2018 Helicobacter pylori gastrointestinal tract infec tion 11/16/2017 Depressive disorder 06/10/2012 Allergic rhinitis 03/03/2012 Encounters Date Type Department Care Team Description 01/20/2025 Telephone [facility] [address] [place] [phone] Hailey Smallwood MD Results 01/20/2025 Orders Only [address] [address] Hailey Smallwood MD Anemia, unspecified type (Primary Dx) 01/19/2025 1:45 PM EDT Office Visit [address] [address] Hailey Smallwood MD Primary hypertension (Primary Dx); Chronic left-sided low back pain, unspecified whether sciatica present; Anxiety with depression; Hair loss; Polyarthralgia; Mild intermittent asthma without complication; Meningioma (CMS/HCC); Encounter for screening mammogram for malignant neoplasm of breast; Colon cancer screening 01/19/2025 Travel 01/08/2025 Patient Outreach [address] [address] Hailey Smallwood MD Care Coordination (SDOH ) 01/08/2025 Patient Outreach [address] [address] Hailey Smallwood MD Pre-visit Planning (SDOH screening positive and tobacco screening negative) 01/04/[address] [address] Hailey Smallwood MD Mild intermittent asthma without complication 12/04/2024 Population Health Risk Score [facility] () Department [address] [place] [phone] Provider, Population Health Generic 11/12/2024 Refill [facility] [address] [place] [address] Hailey Smallwood MD 11/12/2024 Refill [facility] [address] [place] [address] Hailey Smallwood MD Mild intermittent asthma without complication 10/31/2024 11:20 AM EST Office Visit [facility] [address] [place] [address] Td Bullard MD Costochondritis (Primary Dx) from Last 3 Months Immunizations Name Administration Dates Next Due DTaP 04/24/2010 Influenza, IIV3, injectable 05/03/2011 Influenza, Split (incl. purified surface antigen ) 06/10/2012 Pertussis 10/20/2009 TD (adult), 2 Lf tetanus tox oid, preservative free, adsorbed 01/18/2019 Social History Tobacco Use Types Packs/Day Years Used Date Smoking Tobacco: Never Passive Smoke Exposure: Never Smokeless Tobacco: Never Tobacco Cessation:Counseling Given: Not Answered Depression Answer Date Recorded Patient Health Questionnaire-9 [...] Orientation Straight 07/23/2022 10 :16 AM EDT Last Filed Vital Signs Vital Sign Reading [...] Mass Index 31.63 01/19/2025 1:28 PM EDT Plan of Treatment Upcoming Encounters Date Type Department Care Team (Late st Contact Info) Description 04/20/2025 1:45 PM EDT Office Visit [facility] [address] [place] [address] Hailey Smallwood MD [address] [place] [address] Health Maintenance Due Date Last Done Comments CT Colonography 1968 Colonoscopy 1968 Colorectal Cancer Screening 1968 Dental Oral Exam 1968 Dental Prophylaxis 1968 Dental X-Ray: Bitewings 1968 FIT DNA/Cologuard 1968 FIT 1968 FOBT 1968 Sigmoidoscopy 1968 Hepatitis B Vaccines (1 of 3 - 19+ 3-dose series) 1987 Pneumococcal Vaccine: 50+ Years (1 of 2 - PCV) 1987 Zoster Vaccines (1 of 2) 2018 COVID-19 Vaccine ( - season) 2024 Influenza Vaccine (#1) 2024 06/10/2012, 2010 Mammogram 08/30/2024 08/30/2022, 02/21, 02/14/2018 Dental X-Ray: Full Mouth 12/26/2025 12/25/2022 SDOH Screening 01/08/2026 01/08/2025 Alcohol/Substance Use Screening 01/19/2026 01/19/2025 Depression Screening 01/19/2026 01/19/2025, 01/20/20 Diabetes: Hemoglobin A1C 01/19/2026 025, 11/13/2023, 04/19/2022, Additional history exists Tobacco Screening 01/19/2026 01/19/2025 Cervical Cancer Screening 07/12/2027 HPV/Cotest 07/12/2027 07/12/2022, 06/24, 06/22/2019 Pap Smear 07/12/2027 07/12/2022 DTaP/Tdap/Td Vaccines (3 - Tdap) 01/18/2029 01/18/2019, 04/24/2010 Lipid Panel 01/19/2030 01/19/2025, 11/22, 04/19/2022, Additional history exists RSV Patients and Patients Aged 60 years or older (1 - 1-dose 75+ series) 2043 HIV Screening Completed 01/19/2025, 10/25, 09/29/2021 Hepatitis C Screening Completed 01/19/2025 , 11/13/2023, 09/29/2021 HIB Vaccines Aged Out No longer eligi ble based on patient's age to complete this topic HPV Vaccines Aged Out No longer eligi ble based on patient's age to complete this topic Hepatitis A Vaccines Aged Out No long er eligible based on patient's age to complete this topic IPV Vaccines Aged Out No longer eligi ble based on patient's age to complete this topic Meningococcal Vaccine Aged Out No samantha morena eligible based on patient's age to complete this topic RSV under 20 months Aged Out No longe r eligible based on patient's age to complete this topic Rotavirus Vaccines Aged Out No longer eligible based on patient's age to complete this topic Procedures Procedure Name Priority Date/Time Associated Diagnosis Comments TSH W/REFLEX TO FT4 Routine 01/19/2025 2 :05 PM EDT Hair loss VITAMIN D,25-OH,TOTAL,IA Routine 01/19/2025 2:05 PM EDT [...] Routine 01/19/2025 2:05 PM EDT Primary hypertension CBC WITH AUTO DIFFERENTIAL Routine 01/19/2025 2:05 PM EDT Primary hypertension ECG 12-LEAD Routine 10/31/2024 12:22 PM EST Costochondritis PANORAMIC RADIOGRAPHIC IMAGE Routine 12/25/2022 11:30 AM EDT HM MAMMOGRAPHY Routine 08/30/2022 11:24 AM EST ZZZ HISTORICAL HPV E6/E7 RFLX ANGLE 16 18/45 Routine 07/12/2022 1:49 PM EDT HM PAP/HPV Routine 07/12/2022 12:00 AM EDT from Last 3 Months or Most Recently Relevant to Health Maintenance Results * Vitamin D, 25-Hydroxy, Total, Immunoassay (01/19/2025 2:05 PM EDT) Vitamin D 25-OH Total 43.3 >30 ng/mL [facility] Comment: Health Based Reference Values*< 20 ??ng/mL ??Gbhvlrisa36-60 ng/mL ??Insufficient> 30 ??ng/mL ??Sufficient*Veronica DAVIS. N [...] Landaverde MD LAB BLOOD ORDERABLES Final Result [facility] [address] [place] [address] [phone] * TSH with Reflex to Free T4 (01/19/2025 2:05 PM EDT) TSH reflex Free T4 1.75 0.32 - 4.0 uIU/mL [facility] Blood Venous blood specimen / Unknown 01/19/2025 2:05 PM EDT 01/19/2025 3:59 PM EDT Hailey Landaverde MD LAB BLOOD ORDERABLES Final Result [facility] [address] [place] [address] [phone] * (ABNORMAL) CBC auto differential (01/19/2025 2:05 PM EDT) White Blood Count 7.2 4.8 - 10.8 X10*3/uL [facility] Red Blood Count 3.78(L) 4.20 - 5.50 X10*6/uL [facility] Hemoglobin 10.9(L) 12.0 - 16.0 g/dl [facility] Hematocrit 33.7(L) 37.0 - 47.0 % [facility] Mean Corpuscular Volume 89.2 80.0 - 98.0 fL [facility] Mean Corpuscular Hemoglobin 28.8 27.0 - 33.0 pg [facility] Mean Corpuscular HGB Conc 32.3 31.0 - 35.0 g/dl [facility] Red Cell Distribution Width 13.3 11.0 - 16.0 % [facility] Platelet Count 270 160 - 400 X10*3/uL [facility] Mean Platelet Volume 12.2 9.4 - 12.3 fL [facility] Neutrophils Percent Auto 40.6(L) 45 - 73 % [facility] Imm Gran Pct Auto 0.3 0.0 - 0.4 % [facility] Lymphocytes Percent Auto 39.9 20 - 40 % [facility] Monocytes Percent Auto 6.2 2 - 11 % [facility] Eosinophils Percent Auto 12.2(H) 0 - 4 % [facility] Basophils Percent Auto 0.8 0 - 2 % [facility] NRBC Pct Auto 0.0 0.0 - 0.2 /100WBC [facility] Neutrophils Absolute Auto 2.9 2.0 - 8.3 x10*3/uL [facility] Imm Gran Abs Auto 0.02 0.00 - 0.03 X10*3/uL [facility] Lymphocytes Absolute Auto 2.9 1.2 - 4.9 X10*3/uL [facility] Monocytes Absolute Auto 0.5 0.1 - 1.2 X10*3/uL [facility] Eosinophils Absolute Auto 0.9(H) 0.0 - 0.4 X10*3/uL [facility] Basophils Absolute Auto 0.1 0.0 - 0.2 X10*3/uL [facility] NRBC Abs Auto 0.000 0.0 - 0.012 X10*3/uL [facility] Blood Venous blood specimen / Unknown 01/19/2025 2:05 PM EDT 01/19/2025 3:59 PM EDT us Hailey Landaverde MD LAB BLOOD ORDERABLES Final Result Performing Organization Address City/[facility]/ZIP Co de Phone Number [facility] [address] [place] [phone] * Hepatitis C Antibody with Reflex to HCV, RNA, Quantitative, Real-Time PCR (01/19/2025 2:05 PM EDT) Pathologist [facility] Hepatitis C Antibody Nonreactive Nonreactive [facility] Comment:Antibodies to HCV no t detected; does not exclude early acuteHCV infection. Blood Venous blood specimen / Unknown 01/19/2025 2:05 PM EDT 01/19/2025 3:59 PM EDT us Hailey Landaverde MD LAB BLOOD ORDERABLES Final Result Performing Organization Address [facility] Co de Phone Number [facility] [address] [place] [phone] * HIV-1/2 Antigen and Antibodies, Fourth Generation, with Reflexes (01/19/2025 2:05 PM EDT) Pathologist [facility] HIV AB/AG Nonreactive Nonreactive [facility] Comment:HIV-1 p24 Ag and/or HIV-1/HIV-2 Ab not detected.A test result that is nonreactive does not exclude thepossibility of exposure to or infection with HIV-1 and/orHIV-2. Nonreactive results in this assay for individualswith prior exposure to HIV-1 and/or HIV-2 may be due toantigen and antibody levels that are below the limit ofdetection of this assay.The Comfort Line HIV Ag/Ab Combo assay result andsupplemental assay results should be interpreted inconjunction with the patient's clinical presentation,history and other laboratory results. If the results areinconsistent with clinical evidence, additional testing issuggested to confirm the result. Blood Venous blood specimen / Unknown 01/19/2025 2:05 PM EDT 01/19/2025 3:59 PM EDT Hailey Landaverde MD LAB BLOOD ORDERABLES Final Result [facility] [address] [place] [phone] * Hemoglobin A1c (01/19/2025 2:05 PM EDT) Pathologist [facility] Hemoglobin A1c 5.8 <6.0 % [facility] Comment:Hemoglobin A1C Refer ence Range Adults: 4.8 - 6.0 % Non diabetic: < 6.0 % Goal: < 7.0 %Additional Action Suggested: > 8.0 %Note: Hemoglobin A1c results are invalid for patients with abnormal amounts of HbF. Blood transfusions may impact the HbA1c concentration in the patient sample. Estimated Average Glucose 120 mg/dL [facility] Comment:eAG = Estimated ave rage glucose which is %A1C expressed asaverage glucose, using the formula of the [id number]-IvulbksCmfpafw Glucose study (ADAG), Diabetes Care, Vol.31,#8,Apr. 2007 Blood Venous blood specimen / Unknown 01/19/2025 2:05 PM EDT 01/19/2025 3:59 PM EDT us Hailey Landaverde MD LAB BLOOD ORDERABLES Final Result Performing Organization Address City/[facility]/ZIP Co de Phone Number [facility] [address] [place] [phone] * (ABNORMAL) Lipid Panel, Standard (01/19/2025 2:05 PM EDT) Triglycerides 156(H) <150 mg/dL [facility] Comment:Desirable Triglyceri de: less than 150 mg/dLBorderline High Triglyceride 150-199 mg/dLHigh Triglyceride: 200-499 mg/dLVery High Triglyceride: greater than or equal to 5OO mg/dL Cholesterol 164 <200 mg/dL [facility] Comment:Desirable Cholestero l: less than 200 mg/dLBorderline High Cholesterol: 200-239 mg/dLHigh Cholesterol: greater than 239 mg/dL LDL Cholesterol Calculated 88 <100 mg/dL [facility] Comment:Desirable LDL: less than 100 mg/dLNear Optimal/Above Optimal LDL: 110- 129 mg/dLBorderline High LDL: 130-159 mg/dLHigh LDL: 160-189 mg/dLVery High LDL: greater than or equal to 190 mg/dL HDL Cholesterol 45 >40 mg/dL [facility] Comment:Desirable HDL: great er than 40 mg/dL Note: This HDL assay may give artificially low results in patients with liver disease. Blood Venous blood specimen / Unknown 01/19/2025 2:05 PM EDT 01/19/2025 3:59 PM EDT us Hailey Landaverde MD LAB BLOOD ORDERABLES Final Result Performing Organization Address City/[facility]/ZIP Co de Phone Number [facility] [address] [place] [phone] * (ABNORMAL) Comprehensive Metabolic Panel (01/19/2025 2:05 PM EDT) Sodium 141 135 - 145 mmol/L [facility] Potassium 4.2 3.3 - 5.1 mmol/L [facility] Chloride 107 96 - 108 mmol/L [facility] Carbon Dioxide 28 22 - 29 mmol/L [facility] Anion Gap 10(L) 12 - 20 [facility] Urea Nitrogen (BUN) 15 9 - 16 mg/dL [facility] Creatinine, Serum 0.62 0.5 - 1.4 mg/dL [facility] Estimated Glomerular Filt Rate >60 [facility] Comment:Chronic Kidney Disea se: Estimated GFR < 60 mL/min/1.41m7Nykitx Kidney Disease: Estimated GFR < 15 mL/min/1.73m2 Glucose 99 60 - 115 mg/dL [facility] Calcium 9.4 8.4 - 10.2 mg/dL [facility] Bilirubin, Total 0.5 0.0 - 1.0 mg/dL [facility] Aspartate Amino Transferase 36(H) 5 - 31 U/L [facility] Alanine Aminotransferase 42(H) 0 - 31 U/L [facility] Total Protein 7.6 6.5 - 8.0 g/dL [facility] Albumin Level 4.3 3.5 - 5.0 g/dL [facility] Alkaline Phosphatase 64 39 - 117 U/L [facility] Blood Venous blood specimen / Unknown 01/19/2025 2:05 PM EDT 01/19/2025 3:59 PM EDT us Hailey Landaverde MD LAB BLOOD ORDERABLES Final Result [facility] [address] [place] [address] [phone] * ECG 12 lead (10/31/2024 12:22 PM EST) Narrative Td Bullard MD - 10/31/2024 12:22 PM EST HR 115 Qtc:398 [id number] Sinus tachycardia us Td Valentin MD ECG ORDERABLES Fi nal Result * Hm Mammography (08/30/2022 11:24 AM EST) Pathologist [facility] Mammogram Birads-1 Anatomical Region Laterality Modality Other Historical Provider HEALTH MAINTENANCE Final Result * HPV E6/E7 RFLX ANGLE 16 18/45 (07/12/2022 1:49 PM EDT) Pathologist [facility] HPV mRNA E6/E7 rflx Not Detected Not Detected [facility] Comment: Methodology: Group Work Program Aide-Mediated Amplification This assay detects E6/E7 viral messenger RNA (mRNA) from 14 high-risk HPV types (16,18,31,33,35,39,45,51,52,56,58,59,66,68). Cervical sources are required for HPV testing. If a vaginal source from a patient who has had a total hysterectomy with removal of cervix was submitted, please contact the testing laboratory for alternative testing options. For additional information, please refer to http://[email or web address].it/faq/HMG073e8 (This link if provided for information/ educational purposes only.) THIS TEST WAS PERFORMED AT: [id number] [address] [place] [address],[address] [place], [place] ??[phone] ILDA MARC MD 07/12/2022 1:49 PM EDT Kiara Rahman HISTORICAL/NON ORDERABLE LABS Fi nal Result [facility] * Pap Smear (07/12/2022 12:00 AM EDT) Historical Provider HEALTH MAINTENANCE Final Result from Last 3 Months or Most Recently Relevant to Health Maintenance Insurance [employer] [facility] Care Teams Licensed Therapist Relationship Specialty Start Date End Date Hailey Smallwood MD [address] [place] [address] PCP - General Internal Medicine 05/07/23
--- OUTSIDE RECORDS SUMMARY | 2025-01-20 14:31 | XMS_ITS | Encounter Summary ---
Author Organization [employer] Address [address] [facility] [address]t [place] [address] Care Team Providers Care Nuclear Station Operator Name Role Phone Hailey Smallwood MD Primary Care Provide r Reason for Visit * Reason Comments Med Refill Encounter Details Date Type Department Care Team ([facility] st Contact Info) Description 01/04/2025 Refill [facility] MEDICINE [address] [place], [place] [phone] Hailey Smallwood MD [address] [place], [place] [phone] Mild intermittent asthma without complication Social History Tobacco Use Types Packs/Day Years Used Date Smoking Tobacco: Never Passive Smoke Exposure: Never Smokeless Tobacco: Never Depression Answer Date Recorded Patient Health Questionnaire-9 Score 15 10/14/2023 Patient Health Questionnaire-9 Score 15 10/14/2023 Last PHQ-9: Questionnaire Data Not on file 0 10/14/2023 Housing Stability Answer Date Recorded What is [...] Answer Date Recorded Patient Health Questionnaire-2 Score 6 10/14/2023 Internet Access Answer Date Recorded Internet Access [...] Description 04/20/2025 1:45 PM EDT Office Visit [facility] MEDICINE [address] [place] [address] Hailey Smallwood MD [address] [place] [address] documented as of this encounter Visit Diagnoses Diagnosis Mild intermittent asthma without complication documented in this encounter Additional Health Concerns Assessment Noted Time PHQ-9 Depression Total Score: 15 024 2:01 PM EST documented as of this encounter Care Teams Nuclear Station Operator Relationship Specialty Start Date End Date Hailey Smallwood MD [address] [place] [phone] PCP - General Internal Medicine 05/07/23 documented as of this encounter
--- OUTSIDE RECORDS SUMMARY | 2025-01-20 14:32 | XMS_ITS | Encounter Summary ---
Author Organization [employer] Address 75 [facility] 7t [place] [address] Care Team Providers Care Bullet Swaging Machine Operator Name Role Phone Guerda Morillo RETAIL ANALYST Primary Care Provider +1- [phone] Hailey Smallwood MD Primary Care Provide r Encounter Details Date Type Department Care Team (Late Contact Info) Description 11/13/2022 Orders Only [facility] CH[facility] MED & PEDS [address] [place], [place] [phone] Rosalba Mukherjee LPN Social History Tobacco Use Types Packs/Day Years Used Date Smoking Tobacco: Unknown Depression Answer Date Recorded Patient Health Questionnaire-9 Score 15 09/13/2022 Depression Answer Date Recorded Patient Health Questionnaire-2 Score 6 09/13/2022 Comments Unknown Sex and Gender Information Value Date Recorded Sex Assigned at Female 07/23/2022 10:16 AM EDT Legal Sex Female 10:16 AM EDT Gender Identity Female 07/23/2022 10:16 AM EDT Sexual Orientation Straight 07/23/2022 10 :16 AM EDT documented as of this encounter Plan of Treatment Upcoming Encounters Date Type Department Care Team (Late Contact Info) Description 04/20/2025 1:45 PM EDT Office Visit [facility] MEDICINE [address] [place], [place] [phone] Hailey Smallwood MD [address] [place], [place] [phone] documented as of this encounter Visit Diagnoses Not on filedocumented in this encounter Additional Health Concerns Assessment Noted Time PHQ-9 Depression Total Score: 15 022 9:34 AM EST documented as of this encounter Care Teams Bullet Swaging Machine Operator Relationship Specialty Start Date End Date Guerda Morillo FNP PCP - General Family Medicine 02/14/22 05/06/23 Hailey Smallwood MD [address] [place] [address] PCP - General Internal Medicine 05/07/23 documented as of this encounter
--- OUTSIDE RECORDS SUMMARY | 2025-01-20 14:32 | XMS_ITS | Encounter Summary ---
Author Organization [employer] Address [address] [facility] [address] 7t [place] [address] Care Team Providers Care Clinical Data Research Name Role Phone Hailey Smallwood MD Primary Care Provide r Encounter Details Date Type Department Care Team (Late st Contact Info) Description 12/11/2023 Orders Only [facility] MEDICINE [address] [place] [address] Hailey Smallwood MD [address] [place] [address] Social History Tobacco Use Types Packs/Day Years Used Date Smoking Tobacco: Never Passive Smoke Exposure: Never Smokeless Tobacco: Never Depression Answer Date Recorded Patient Health Questionnaire-9 Score 15 10/14/2023 Patient Health Questionnaire-9 Score 15 10/14/2023 Last PHQ-9: Questionnaire Data Not on file 0 10/14/2023 Housing Stability Answer Date Recorded What is your housing situation today? I have barry mcrae 07/15/[address] you li ve. Do you have problems with any of the following? None of the above 07/15/2023 Food Insecurity Answer Date Recorded Within the past 12 months, y ou worried that your food would run out before you got money to buy more: Never True 10/14/2023 Within the past 12 months,th e food you bought just didn't last and you didn't have enough money to get more: Never True Transportation Answer Date Recorded In the past 12 months, has l ack of transportation kept you from medical appts, meetings, work or from getting things needed for daily living? No 07/15/2023 Utilities Answer Date Recorded In the past 12 months, has t he electric, gas, oil or water company threatened to shut off services in your home? No 07/15/2023 Depression Answer Date Recorded Patient Health Questionnaire-2 Score 6 10/14/2023 Comments Unknown Sex and Gender Information Value [...] Description 04/20/2025 1:45 PM EDT Office Visit [facility] MEDICINE [address] [place] [address] Hailey Smallwood MD [address] [place] [address] documented as of this encounter Visit Diagnoses Not on filedocumented in this encounter Additional Health Concerns Assessment Noted Time PHQ-9 Depression Total Score: 15 024 2:01 PM EST documented as of this encounter Care Teams Clinical Data Research Relationship Specialty Start Date End Date Hailey Smallwood MD [address] [place] [address] PCP - General Internal Medicine 05/07/23 documented as of this encounter
--- OUTSIDE RECORDS SUMMARY | 2025-01-20 14:32 | XMS_ITS | Encounter Summary ---
Author Organization [employer] Address [address] [place] [address] Care Team Providers Care Sign Designer Name Role Phone Guerda Morillo [facility] Primary Care Provider +1- [phone] Hailey Smallwood MD Primary Care Provide r Encounter Details Date Type Department Care Team ([facility] Contact Info) Description 02/08/2023 Abstract [facility] MEDICINE [address] [place] [address] Guerda Morillo [address] Dept [place] [address] Social History Tobacco Use Types Packs/Day Years Used Date Smoking Tobacco: Never Smokeless Tobacco: Never Depression Answer Date Recorded Patient Health Questionnaire-9 Score 15 09/13/2022 Depression Answer Date Recorded Patient Health Questionnaire-2 Score 6 09/13/2022 Comments Unknown Sex and Gender Information Value Date Recorded Sex Assigned at Female 07/23/2022 10:16 AM EDT Legal Sex Female 10:16 AM EDT Gender Identity Female 07/23/2022 10:16 AM EDT Sexual Orientation Straight 07/23/2022 10 :16 AM EDT COVID-19 Exposure Response Date Recorded In the last 10 days, have yo u been in contact with someone who was confirmed or suspected to have Coronavirus/COVID-19? No / Unsure 01/16/2023 8:33 AM EDT documented as of this encounter Plan of Treatment Upcoming Encounters Date Type Department Care Team ([facility] Contact Info) Description 04/20/2025 1:45 PM EDT Office Visit [facility] MEDICINE [address] [place] [address] Hailey Smallwood MD 230 [place] [address] documented as of this encounter Visit Diagnoses Not on filedocumented in this encounter Additional Health Concerns Assessment Noted Time PHQ-9 Depression Total Score: 15 09/13/ 022 9:34 AM EST documented as of this encounter Care Teams Sign Designer Relationship Specialty Start Date End Date Guerda Morillo FNP PCP - General Family Medicine 02/14/22 05/06/23 Hailey Smallwood MD [address] [place] [address] PCP - General Internal Medicine 05/07/23 documented as of this encounter
--- OUTSIDE RECORDS SUMMARY | 2025-01-20 14:32 | XMS_ITS | Encounter Summary ---
Author Organization [employer] Address [address] [place] [address] [place] [address] Care Team Providers Care Measurer Machine Name Role Phone Guerda Morillo [facility] Primary Care Provider +1- [phone] Hailey Smallwood MD Primary Care Provide r Encounter Details Date Type Department Care Team (Late Contact Info) Description 10/18/2022 Telephone [facility] MEDICINE [address] [place] [address] Guerda Morillo [address] Dept [place] [address] Social History Tobacco Use Types Packs/Day Years [...] Description 04/20/2025 1:45 PM EDT Office Visit [facility] MEDICINE [address] [place] [address] [phone] Hailey Smallwood MD [address] [place], [place] [phone] documented as of this encounter Visit Diagnoses Not on filedocumented in this encounter Additional Health Concerns Assessment Noted Time PHQ-9 Depression Total Score: 15 022 9:34 AM EST documented as of this encounter Care Teams Measurer Machine Relationship Specialty Start Date End Date Guerda Morillo FNP PCP - General Family Medicine 02/14/22 05/06/23 Hailey Smallwood MD [address] [place] [address] PCP - General Internal Medicine 05/07/23 documented as of this encounter
--- OUTSIDE RECORDS SUMMARY | 2025-01-20 14:32 | XMS_ITS | Encounter Summary ---
Author Organization [employer] Address 75 [facility] 7t [place] [address] Care Team Providers Care Metal Fabricating Shop Helper Name Role Phone Guerda Morillo OIL DISTRIBUTOR TENDER Primary Care Provider +1- [phone] Hailey Smallwood MD Primary Care Provide r Encounter Details Date Type Department Care Team (Late Contact Info) Description 12/28/2022 Orders Only [facility] CHC MED & PEDS [address] [place], [place] [phone] Rosalba Mukherjee LPN Social History Tobacco Use [...] suspected to have Coronavirus/COVID-19? No / Unsure 12/25/2022 11:14 AM EDT documented as of this encounter Plan of Treatment Upcoming Encounters Date Type Department Care Team ([facility] Contact Info) Description 04/20/2025 1:45 PM EDT Office Visit [facility] MEDICINE [address] [place], [place] [phone] Hailey Smallwood MD [address] [place], [place] [phone] documented as of this encounter Visit Diagnoses Not on filedocumented in this encounter Additional Health Concerns Assessment Noted Time PHQ-9 Depression Total Score: 15 09/13/ 022 9:34 AM EST documented as of this encounter Care Teams Metal Fabricating Shop Helper Relationship Specialty Start Date End Date Guerda Morillo FNP PCP - General Family Medicine 02/14/22 05/06/23 Hailey Smallwood MD [address] [place] [address] PCP - General Internal Medicine 05/07/23 documented as of this encounter
--- OUTSIDE RECORDS SUMMARY | 2025-01-20 14:32 | XMS_ITS | Encounter Summary ---
Author Organization [employer] Address [address] [place] [address] Care Team Providers Care Economics Instructor Name Role Phone Guerda Morillo Primary Care Provider Hailey Smallwood MD Primary Care Provide r Reason for Visit * Reason Comments Med Refill Encounter Details Date Type Department Care Team (Late Contact Info) Description 09/02/2022 Refill [facility] MEDICINE [address] [place] [address] Guerda Morillo FNP [address] [place] [address] Dept [place] [address] Social History Tobacco Use Types Packs/Day Years Used Date Smoking Tobacco: Unknown Comments Unknown Sex and Gender Information Value Date Recorded Sex Assigned at Female 07/23/2022 10:16 AM EDT Legal Sex Female 10:16 AM EDT Gender Identity Female 07/23/2022 10:16 AM EDT Sexual Orientation Straight 07/23/2022 10 :16 AM EDT documented as of this encounter Plan of Treatment Upcoming Encounters Date Type Department Care Team (Late Contact Info) Description 04/20/2025 1:45 PM EDT Office Visit [facility] MEDICINE [address] [place] [address] Hailey Smallwood MD [address] [place] [address] documented as of this encounter Visit Diagnoses Not on filedocumented in this encounter Care Teams Economics Instructor Relationship Specialty Start Date End Date Guerda Morillo FNP PCP - General Family Medicine 02/14/22 05/06/23 Hailey Smallwood MD [address] [place] [phone] PCP - General Internal Medicine 05/07/23 documented as of this encounter
--- OUTSIDE RECORDS SUMMARY | 2025-01-20 14:32 | XMS_ITS | Encounter Summary ---
Author Organization [employer] Address [address] [place] [address] Care Team Providers Care Event Producer Name Role Phone Guerda Morillo [facility] Primary Care Provider +1- [phone] Hailey Smallwood MD Primary Care Provide r Encounter Details Date Type Department Care Team ([facility] Contact Info) Description 02/07/[address] [facility] MEDICINE [address] [place] [address] Guerda Morillo [address] Dept [place] [address] Social History Tobacco Use Types Packs/Day Years [...] Upcoming Encounters Date Type Department Care Team ([facility] Contact Info) Description 04/20/2025 1:45 PM EDT Office Visit [facility] MEDICINE [address] [place] [address] Hailey Smallwood MD [address] [place] [address] documented as of this encounter Procedures Procedure Name Priority Date/Time Associated Diagnosis Comments MAMMOGRAPHY Routine 08/30/2022 11:24 AM EST PAP/HPV Routine 07/12/2022 12:00 AM EDT documented in this encounter Results * Mammography (08/30/2022 11:24 AM EST) HM Mammogram Birads-1 Anatomical Region Laterality Modality Other us Historical Provider HEALTH MAINTENANCE Final Result * Pap Smear (07/12/2022 12:00 AM EDT) Historical Provider HEALTH MAINTENANCE Final Result documented in this encounter Visit Diagnoses Not on filedocumented in this encounter Additional Health Concerns Assessment Noted Time PHQ-9 Depression Total Score: 15 09/13/ 022 9:34 AM EST documented as of this encounter Care Teams Event Producer Relationship Specialty Start Date End Date Guerda Morillo FNP PCP - General Family Medicine 02/14/22 05/06/23 Hailey Smallwood MD [address] [place] [address] PCP - General Internal Medicine 05/07/23 documented as of this encounter
--- OUTSIDE RECORDS SUMMARY | 2025-01-20 14:32 | XMS_ITS | Encounter Summary ---
Author Organization [employer] Address 75 [facility] 7t [place] [address] Care Team Providers Care Concert Or Lecture Hall Manager Name Role Phone Guerda Morillo SUPERVISOR ALUMINUM BOAT ASSEMBLY Primary Care Provider +1- [phone] Hailey Smallwood MD Primary Care Provide r Encounter Details Date Type Department Care Team (Late Contact Info) Description 10/15/2022 Orders Only [facility] CHC MED & PEDS [address] [place], [place] [phone] Rosalba Mukherjee LPN Social History Tobacco Use [...] Description 04/20/2025 1:45 PM EDT Office Visit [facility] MEDICINE [address] [place], [place] [phone] Hailey Smallwood MD [address] [place], [place] [phone] documented as of this encounter Visit Diagnoses Not on filedocumented in this encounter Additional Health Concerns Assessment Noted Time PHQ-9 Depression Total Score: 15 022 9:34 AM EST documented as of this encounter Care Teams Concert Or Lecture Hall Manager Relationship Specialty Start Date End Date Guerda Morillo FNP PCP - General Family Medicine 02/14/22 05/06/23 Hailey Smallwood MD [address] [place] [address] PCP - General Internal Medicine 05/07/23 documented as of this encounter
[2025-01-20 16:07] LABS: MANUAL DIFF FLAG NO
[2025-01-20 16:10] LABS: Basophils Percent Auto 0.5 % (0-2); Eosinophils Absolute Auto 0.8 X10*3/uL (0.0-0.4); Eosinophils Percent Auto 10.3 % (0-4); Hemoglobin 10.9 g/dl (12.0-16.0); Imm Gran Abs Auto 0.03 X10*3/uL (0.00-0.03); Imm Gran Pct Auto 0.4 % (0.0-0.4); Lymphocytes Absolute Auto 2.7 X10*3/uL (1.2-4.9); Lymphocytes Percent Auto 35.6 % (20-40); Mean Corpuscular Hemoglobin 29.4 pg (27.0-33.0); Mean Corpuscular Volume 88.9 fL (80.0-98.0); Mean Platelet Volume 12.3 fL (9.4-12.3); Monocytes Absolute Auto 0.5 X10*3/uL (0.1-1.2); Neutrophils Absolute Auto 3.5 x10*3/uL (2.0-8.3); Neutrophils Percent Auto 46.2 % (45-73); Platelet Count 265 X10*3/uL (160-400); Red Blood Count 3.71 X10*6/uL (4.20-5.50); Red Cell Distribution Width 13.4 % (11.0-16.0); White Blood Count 7.5 X10*3/uL (4.8-10.8)
[2025-01-20 16:25] LABS: Iron 65 mcg/dL (30-160); Percent Iron Saturation 25 % (15-50); Total Iron Binding Capacity 263 mcg/dL (228-428); Unsaturated Iron Binding 198 ug/dL
[2025-01-20 16:38] LABS: Ferritin 97 ng/mL (10-250)
[2025-01-20 16:53] LABS: Folate 11.2 ng/mL (> or = 4.0); Vitamin B12 337 pg/mL (200-900)
== END 2025-01-20 13:12 | disposition home or self-care (01) ==
LOC: HO.HHCL 13:11
PROVIDERS: Visit Provider Internal Medicine
DX: D64.9 Anemia, unspecified (principal)
CPT/HCPCS: 36415; 82607; 82728; 82746; 83540; 85025